=== PATIENT | female | born 1935 | race Caucasian/White ===

== ENCOUNTER 2017-04-28 19:04 | Emergency (ER) | payer OTHER, MEDICAID ==
[~2017-04-28] VITALS: Ht 154.9 cm; Wt 84.4 kg
[2017-04-28 19:04] VITALS: BP 134/76
[2017-05-19] MEDS ORDERED: CELEXA10 MG PO (08:50)
[2017-05-19] MEDS ORDERED: NEURONTIN100 MG PO (08:51)
== END 2017-04-28 19:58 | disposition home or self-care (01) ==
LOC: ED 19:04
DX: Z48.01 Encounter for change or removal of surgical wound dressing (principal); Z90.711 Acquired absence of uterus with remaining cervical stump; Z98.890 Other specified postprocedural states; Z79.899 Other long term (current) drug therapy; Z79.82 Long term (current) use of aspirin

== ENCOUNTER → 2017-04-28 | Day surgery (SDC) | payer OTHER, MEDICAID ==
[~2017-04-28] VITALS: Ht 154.9 cm; Wt 81.6 kg
[~2017-04-28] MED LIST: AMBIEN5 MG PO; ASPIRIN81 M1 PO; ASPIRIN81 M2 PO; ATENOLOL; ATENOLOL25 MG PO; ATENOLOL50 MG PO; CALCIUM WITH D1 CTB PO; CALCIUM1 CAP PO; CEFDINIR300 MG PO; CENTRUM SILVER1 TA1 PO; CIPRO500 MG PO; COLACE20 MG/5 ML PO; FERROUS SULFAT325 M1 PO; FERROUS SULFAT325 MG PO; FLEXERIL10 MG PO; FLEXERIL5 MG PO; HYDROCODONE BIT1 T11 PO; ISOSORBIDE30 MG PO; KETOPROFEN75 MG PO; LISINOPRIL20 MG PO; MACROBID100 M1 PO; MASON NATURAL2000 IU PO; MOM30 M1 PO; NEURONTIN100 MG PO; NEURONTIN300 MG PO; NORCO 5-325 TA1 EACH PO; OMEPRAZOLE D/R20 MG PO; ORUDIS75 MG PO; OXYCODONE HCL10 M1 PO; PERCOCET 325 MG1 TA5 PO; PREDNICOT20 MG PO; SYMBICORT1 AE1 INH; SYNTHROID,LEV112 MCG PO; SYNTHROID0.125 MG PO; THYROID; ULTRAM50 MG PO; VICODIN 5/500 505 MG PO; VITAMIN B-650 M1 PO; VITAMIN B6100 MG PO; ZANTAC150 MG PO; ZESTRIL,PRINIVIL5 MG PO; ZOCOR; ZOCOR40 MG PO; [UNRECOGNIZED DRUG - REMARK]
--- NOTE | ~2017-04-28 | O ---
[place], [place] OPERATIVE NOTE NAME: ADAMS LANDAVERDE UNIT #: [id number] ROOM: DOCTOR: LINDA MONTELONGOSUMANTH BIRTHDATE: [birth year] DOS: 04/28/2017 PREOPERATIVE DIAGNOSIS. Multiple facial lesions. POSTOPERATIVE DIAGNOSIS: Multiple facial lesions. PROCEDURE: Excisional biopsy of 3 facial lesions, 2 of the lesions from the right face, 1 lesion, left mid face. SURGEON: Dr. Schaefer. ANESTHESIA: General. INDICATIONS: The patient is an 82-year-old female who is being taken to the operating room for excisional biopsy of 3 distinct facial lesions. First lesion is located on the left mid face, second lesion right lateral chain, third lesion right neck. DESCRIPTION OF PROCEDURE: Following induction of general anesthesia, the patient was positioned supine on the OR table and draped in the standard fashion for facial skin surgery. The chin and right neck were prepped along with the left mid face. The face was then draped in a standard fashion for skin biopsy. The left mid face was addressed first. An elliptical excision of a 1 cm lesion was performed. Skin and underlying subcutaneous tissue was removed. Minor bleeding was controlled with cautery and the wound was closed in a layered fashion using 3-0 Vicryl and 5-0 monofilament suture. The second lesion was located on the right neck and was exophytic. An elliptical excision of this lesion, surrounding skin and underlying subcutaneous tissue was performed. The excised tissue was submitted to pathology. Minor bleeding controlled with cautery. Wound was closed in a layered fashion with 3-0 Vicryl and 5-0 monofilament suture. Third area was located on the right lateral chain. There was a 2 cm ulcerative skin lesion, which was removed using an elliptical excision of the lesion and surrounding normal tissue. The excision included skin and underlying subcutaneous tissue. Minor bleeding was controlled with cautery. The wound was closed in a layered fashion with 3-0 Vicryl and 5-0 monofilament suture. At the end of the case, all instrument and sponge counts were correct. Steri-Strips and a sterile dressing was applied to each biopsy site. The patient was awakened and transported to PACU in satisfactory condition. [place], [place] OPERATIVE NOTE NAME: ADAMS LANDAVERDE UNIT #: [id number] ROOM: DOCTOR: SUMANTH SCHAEFER MD BIRTHDATE: [birth year] SUMANTH SCHAEFER MD CM:OPRECORD:OPERATIVE NOTE [id number] SUMANTH SCHAEFER MD 04/29/17 1603 interface
[2017-04-28 13:10] VITALS: BP 121/74
[2017-04-28 14:30] VITALS: BP 104/35
[2017-04-28 14:45] VITALS: BP 98/49
[2017-04-28 15:00] VITALS: BP 102/52
== END | disposition home or self-care (01) ==
LOC: SDC 04-23 10:15
DX: L82.1 Other seborrheic keratosis (principal); L57.0 Actinic keratosis; E78.5 Hyperlipidemia, unspecified; E03.9 Hypothyroidism, unspecified; Z90.710 Acquired absence of both cervix and uterus; Z98.49 Cataract extraction status, unspecified eye; Z82.49 Family history of ischemic heart disease and other diseases of the circulatory system; Z83.3 Family history of diabetes mellitus; Z88.8 Allergy status to other drugs, medicaments and biological substances; Z79.899 Other long term (current) drug therapy; I10 Essential (primary) hypertension; K21.9 Gastro-esophageal reflux disease without esophagitis; E78.00 Pure hypercholesterolemia, unspecified; Z86.14 Personal history of Methicillin resistant Staphylococcus aureus infection; Z87.891 Personal history of nicotine dependence

== ENCOUNTER → 2017-05-19 | Outpatient (CLI) | payer OTHER, MEDICAID ==
[~2017-05-19] MED LIST changes: +CELEXA10 MG PO
== END | disposition home or self-care (01) ==
LOC: CARD 05-18 09:22
DX: R07.9 Chest pain, unspecified (principal)

== ENCOUNTER 2017-07-11 15:51 | Inpatient (IN) | payer OTHER ==
[~2017-07-11] VITALS: Ht 12.7 cm; Wt 87.3 kg
--- NOTE | ~2017-07-11 | WRIGHTHP ---
[place], [place] PATIENT HISTORY AND PHYSICAL EXAM [id number] UNIT #: [id number] ROOM: 525 DOCTOR: NINOSKA HO MD BIRTHDATE: [birth year] DOS: 07/11/2017 HISTORY OF PRESENT ILLNESS: The patient who has been admitted to hospital yesterday with history of feeling of weakness, nausea and pain in her abdomen, which are mostly on the left side and she came to Emergency Department where on investigation was found to have urinary tract infection and needed to be admitted to the hospital. She denies having any vomiting. There is no diarrhea. No fever or chills. She is an 82-year-old hold female who has been enjoying fairly a satisfactorily health before. MEDICATIONS: She is taking following medication at present: Multivitamin, ____ one tablet daily, Zocor 40 mg daily, lisinopril 5 mg daily, levothyroxine 112 mcg daily, vitamin B6 at 50 mg daily, aspirin 81 mg daily, citalopram 10 mg daily, gabapentin 100 mg 3 times daily, calcium carbonate with vitamin D 1 capsule daily and vitamin D3 at 2000 units daily. PAST MEDICAL HISTORY: The patient has history of hyperlipidemia, hypothyroidism, ASHD, hypertension, depression, and peripheral neuritis in the past. PAST SURGICAL HISTORY: The patient had partial hysterectomy, TEA, and cataract removal. Last time, the patient admitted to hospital was on 12/17/2013. SOCIAL HISTORY: The patient does not drink, does not smoke. FAMILY HISTORY: Diabetes mellitus and coronary heart disease. PHYSICAL EXAMINATION: GENERAL: The patient is conscious, alert and oriented. VITAL SIGNS: Temperature 98.5, pulse is 78, respirations 16, temperature 110/60, oxygen 99. HEENT: Unremarkable. No glandular enlargement. NECK: Trachea is center. Neck veins are not distended. Carotid pulses are normal. HEART: Regular, no murmur or thrill. LUNGS: Clear. No creps or rhonchi. ABDOMEN: Some tenderness in the suprapubic region and left side of the abdomen, but there is no rebound tenderness, no mass palpable. No neurological deficit observed. LABORATORY DATA: Her comprehensive metabolic profile shows BUN 29, creatinine is 1.16, GFR 45, indicating some chronic renal failure, may be some dehydration. I would encourage the patient to drink more fluid. Her glucose was 124, it was post-prandial, calcium 8.3. Troponin levels are normal. Rest of the chem profile was normal. Her white count is 16,000, hemoglobin is 13 grams, hematocrit is 40.7. Rest of the values are fairly normal. Urine examination showed 3+ leukocytes and 3+ bacteria. DIAGNOSES: Acute urinary tract infection with arteriosclerotic heart disease, hypertension, hyperlipidemia, hypothyroidism, depression and osteoporosis with [place], [place] PATIENT HISTORY AND PHYSICAL EXAM [id number] UNIT #: [id number] ROOM: [facility] DOCTOR: NINOSKA HO MD BIRTHDATE: [birth year] chronic renal failure. PLAN OF TREATMENT: The patient will be admitted to hospital. She will receive IV fluid. Encourage her to drink more liquids. She will be started on her home medication and we will give ____ 1 gram daily, ciprofloxacin IV daily and start her home medications. NINOSKA HO MD CM:HISPHYS:PATIENT HISTORY AND PHYSICAL EXAMINATION 1204 [id number] NINOSKA HO MD 07/12/17 1259 interface
--- NOTE | ~2017-07-11 | DS ---
[place], [place] DISCHARGE SUMMARY NAME: ADAMS LANDAVERDE [facility] #: [id number] UNIT #: [id number] ROOM: 525 DOCTOR: NINOSKA HO MD BIRTHDATE: [birth year] DOS: 07/13/2017 FINAL DIAGNOSES: Acute urinary tract infection with dizziness, ASHD, hypertension, hyperlipidemia, hypothyroidism, depression, osteoporosis and obesity with chronic renal failure on acute renal failure. HOSPITAL COURSE: The patient is feeling asymptomatic today and she is not in any distress. She feels very cold and she wants to go home. Her urine culture and sensitivity showed E. coli infection, which is sensitive to most of antibiotics including Macrobid. The patient will be discharged on Macrobid 100 mg twice daily for 1 week and she will be followed up in the office next week. CBC today is showing no acute problems and her comprehensive metabolic showed much improvement in her BUN and creatinine and they are normal now. Her acute renal failure that has improved, which was possibly due to dehydration. The patient will be advised to drink a lot of liquids. She is advised to continue to take her home medications and will be followed up in the office next week. NINOSKA HO MD CM:NIRMAL [id number] NINOSKA HO MD 07/13/17 1527 interface
--- NOTE | ~2017-07-11 | EKG ---
[place], [place] ELECTROCARDIOGRAM REPORT NAME: ADAMS LANDAVERDE UNIT #: [id number] ROOM: 525 DOCTOR: JUNIE BARAJAS MD BIRTHDATE: [birth year] DOS: 07/11/2017 TIME: 17:05:29 RATE AND RHYTHM: Normal sinus rhythm at 81 beats per minute. MO interval 186 milliseconds, QRS duration 84 milliseconds, corrected QT interval 455 milliseconds, QRS axis is -6. IMPRESSION: 1. Normal sinus rhythm with possible atrial ectopic activity. 2. Atrial premature complexes seen and otherwise is normal EKG. JUNIE BARAJAS MD CM:EKGRPT:ELECTROCARDIOGRAM REPORT [id number] JUNIE BARAJAS MD
[2017-07-11 15:57] VITALS: BP 106/56
[2017-07-11 17:02] LABS: BASO % 0.3 % (0.0-1.0); EOS # 0.1 10*3/uL (0.0-0.4); EOS % 0.6 % (1.0-4.0); HEMATOCRIT 40.7 % (37.0-47.0); LYMPH # 1.3 10*3/uL (1.3-4.4); MEAN CELL VOLUME 96.4 fl (81.0-99.0); MEAN CORPUSCULAR HGB 30.8 pg (27.0-31.0); MEAN CORPUSCULAR HGB CONC 31.9 g/dl (33.0-37.0); MEAN PLATELET VOLUME 9.5 fl (9.6-12.3); MONO # 1.4 10*3/uL (0.1-1.0); MONO % 8.5 % (3.0-9.0); NEUT # 13.1 10*3/uL (2.3-7.9); PLATELET COUNT AUTOMATED 260 10*3/uL (130-400); RED BLOOD COUNT 4.22 10*6/uL (4.10-5.10); RED CELL DISTRI WIDTH 14.6 % (0-14.5)
[2017-07-11 17:10] LABS: ACT PARTIAL THROMBO TIME 21.7 SECONDS (20.8-31.5)
[2017-07-11 17:17] LABS: ALBUMIN 3.2 gm/dl (3.1-4.5); ALKALINE PHOSPHATASE 66 U/L (45-117); BUN 29 mg/dl (7-24); CHLORIDE 101 mmol/L (98-107); CREATININE 1.16 mg/dL (0.55-1.02); POTASSIUM 4.1 mmol/L (3.5-5.1); SGOT/AST 14 IU/L (3-35); SGPT/ALT 20 U/L (12-78); SODIUM 140 mmol/L (136-145); TOTAL PROTEIN 7.6 gm/dL (6.4-8.2)
[2017-07-11 17:20] LABS: TROPONIN I < 0.015 ng/ml (<0.045)
--- NOTE | 2017-07-11 17:33 | NUR ---
PT STRAIGHT CATHED FOR URINE SPECIMEN, TOLERATED WITHOUT COMPLAINT. 60CCS OF DARK YELLOW URINE OBTAINED.
[2017-07-11 17:48] LABS: BILIRUBIN NEGATIVE (NEGATIVE); BLOOD TRACE-INTACT (NEGATIVE); CLARITY SL CLOUDY (CLEAR); COLOR YELLOW (YELLOW); GLUCOSE NEGATIVE (NEGATIVE); KETONE NEGATIVE (NEGATIVE); LEUKO ESTERASE 3+ (NEGATIVE); NITRITE POSITIVE (NEGATIVE); PH 5.5 (5.0-9.0); SPECIFIC GRAVITY 1.015 (1.005-1.030)
[2017-07-11 17:55] LABS: BACTERIA 3+; WBC TNTC wbc/hpf (0-5)
[2017-07-11 19:12] VITALS: BP 128/56
[2017-07-11 20:00] VITALS: BP 131/67
--- NOTE | 2017-07-11 20:00 | NUR ---
A 82, admitted to 5E, under the services of BERNARD Mann DO with a diagnosis of UTI/DIZZYNESS. Chief complaint is DIZZY WHILE LAYING. Patient arrived via wheel chair from ER. Monitor applied. Initial assessment completed. Vital signs taken and recorded. BERNARD MANN DO notified of admission to the unit. Orders received. See assessment for past medical history, medications and allergies. Patient and/or family oriented to unit. [facility] visitation policy reviewed. Clothing/patient valuable form completed. CARYL MORA
--- NOTE | 2017-07-11 20:43 | NUR ---
UNABLE TO VERIFY HOME MEDS, PATIENT'S SON WILL BRING IN LIST IN THE MORNING.
--- NOTE | 2017-07-11 22:18 | NUR ---
PATIENT'S SON BROUGHT IN MED LIST. WAS ABLE TO UPDATE MED REQ.
[2017-07-12] VITALS: BP 156/70
[2017-07-12 08:00] VITALS: BP 118/80
--- NOTE | 2017-07-12 08:26 | NUR ---
PATIENT RESTING QUIETLY IN BED. NO DISTRESS NOTED. RESPIRATIONS EASY, REGULAR. PT DENIES ANY DIZZINESS CURRENTLY. WILL CONTINUE TO MONITOR. ENCOURAGED TO USE CALL LIGHT FOR ASSISTANCE. PT VOICED UNDERSTANDING. WILL CONTINUE TO MONITOR.
[2017-07-12 12:00] VITALS: BP 120/82
--- NOTE | 2017-07-12 12:26 | NUR ---
IN TO SEE PATIENT.
--- NOTE | 2017-07-12 14:24 | NUR ---
PT AMBULATORY IN HALLWAY VIA WALKER. SON WALKING WITH HER. NO DIZZINESS PER PT.
[2017-07-12 16:00] VITALS: BP 122/62
[2017-07-12 20:00] VITALS: BP 139/76
[2017-07-13] VITALS: BP 118/63
[2017-07-13 06:47] LABS: BASO % 0.4 % (0.0-1.0); EOS # 0.3 10*3/uL (0.0-0.4); EOS % 2.5 % (1.0-4.0); HEMATOCRIT 37.6 % (37.0-47.0); HEMOGLOBIN 12.3 g/dl (12.0-16.0); LYMPH # 1.6 10*3/uL (1.3-4.4); LYMPH % 15.4 % (27.0-41.0); MEAN CELL VOLUME 96.7 fl (81.0-99.0); MEAN CORPUSCULAR HGB 31.6 pg (27.0-31.0); MEAN CORPUSCULAR HGB CONC 32.7 g/dl (33.0-37.0); MEAN PLATELET VOLUME 9.7 fl (9.6-12.3); MONO # 0.9 10*3/uL (0.1-1.0); MONO % 9.2 % (3.0-9.0); NEUT # 7.3 10*3/uL (2.3-7.9); NEUT % 71.8 % (47.0-73.0); PLATELET COUNT AUTOMATED 229 10*3/uL (130-400); RED BLOOD COUNT 3.89 10*6/uL (4.10-5.10); RED CELL DISTRI WIDTH 14.4 % (0-14.5); WHITE BLOOD COUNT 10.2 10*3/uL (4.8-10.8)
[2017-07-13 07:43] LABS: ALBUMIN 2.6 gm/dl (3.1-4.5); ALKALINE PHOSPHATASE 51 U/L (45-117); CHLORIDE 107 mmol/L (98-107); CREATININE 0.97 mg/dL (0.55-1.02); SGOT/AST 14 IU/L (3-35); SGPT/ALT 15 U/L (12-78); SODIUM 140 mmol/L (136-145); TOTAL PROTEIN 6.5 gm/dL (6.4-8.2)
[2017-07-13 07:57] LABS: BUN 18 mg/dl (7-24)
[2017-07-13 08:00] VITALS: BP 139/71
--- NOTE | 2017-07-13 09:25 | NUR ---
Tape Recording Machine Operator in to talk to patient. Patient states lives at HOME IN AN APARTMENT with HER SON. There are 0 steps in the home. Physician: DR BARAJAS [facility] services: NONE Patient's level of ADLs: MINIMAL ASSIST Patient has working utilities: YES DME: WALKER Follow-up physician's appointment after d/c: PREFERS TO MAKE HER OWN APPT Does patient want to access PORTAL?: Discharge plan HOME. WILLIAM HERRERA
--- NOTE | 2017-07-13 12:10 | NUR ---
DR HO IN TO SEE PT. PT BEING DISCHARGED. PT HAS UNSIGNED ADMISSION ORDER. I CALLED DR HO'S OFFICE AND THEY STATED THEY WOULD NOTIFY HIM.
--- NOTE | 2017-07-13 12:20 | NUR ---
Discharge instructions reviewed with patient/family. Patient receptive and verbalizes understanding. Follow-up care arranged. Written instructions given to patient/family. BENEDICT MEJIA
== END 2017-07-13 12:20 | disposition home or self-care (01) | DRG 690 ==
LOC: ED 15:51 → EDHOLD 19:11 → 5E 19:11
PROVIDERS: Physician Assistant; ADMIT Internal Medicine
DX: N30.01 Acute cystitis with hematuria (principal); N17.9 Acute kidney failure, unspecified; E44.0 Moderate protein-calorie malnutrition; E86.0 Dehydration; E78.5 Hyperlipidemia, unspecified; E03.9 Hypothyroidism, unspecified; F32.9 Major depressive disorder, single episode, unspecified; E66.9 Obesity, unspecified; I12.9 Hypertensive chronic kidney disease with stage 1 through stage 4 chronic kidney disease, or unspecified chronic kidney disease; N18.9 Chronic kidney disease, unspecified; M81.0 Age-related osteoporosis without current pathological fracture; I25.10 Atherosclerotic heart disease of native coronary artery without angina pectoris; B96.20 Unspecified Escherichia coli [E. coli] as the cause of diseases classified elsewhere; Z91.048 Other nonmedicinal substance allergy status; Z91.041 Radiographic dye allergy status; Z79.82 Long term (current) use of aspirin; Z79.899 Other long term (current) drug therapy; Z68.36 Body mass index [BMI] 36.0-36.9, adult; Z90.710 Acquired absence of both cervix and uterus; Z98.49 Cataract extraction status, unspecified eye; Z83.3 Family history of diabetes mellitus; Z82.49 Family history of ischemic heart disease and other diseases of the circulatory system

== ENCOUNTER 2017-07-30 23:14 | Inpatient (IN) | payer OTHER ==
[~2017-07-30] VITALS: Ht 154.9 cm; Wt 87.7 kg
--- NOTE | ~2017-07-30 | PR ---
[place], [place] PROGRESS NOTE NAME: ADAMS LANDAVERDE UNIT #: [id number] ROOM: 520 DOCTOR: NINOSKA HO MD BIRTHDATE: [birth year] DOS: 08/02/2017 SUBJECTIVE: The patient has been admitted to hospital with dizziness and patient is feeling gradually better and she is able to ambulate without feeling dizziness and she denies any chest pain. No difficulty breathing, no nausea, no vomiting and is satisfactorily improving and she is feeling much better. OBJECTIVE: VITAL SIGNS: Her blood pressure 129/63, pulse 85, respirations 18, temperature 97.8. CHEST: Clear. No creps or rhonchi. HEART: Regular. ABDOMEN: Soft. No edema of leg. She is progressing quite satisfactorily. NINOSKA HO MD CM:PNTRANS [phone] NINOSKA HO MD 08/03/17 0448 interface
--- NOTE | ~2017-07-30 | PR ---
[place], [place] PROGRESS NOTE [id number] UNIT #: [id number] ROOM: 520 DOCTOR: NINOSKA HO MD BIRTHDATE: [birth year] DOS: SUBJECTIVE: Shirin Giles who has been admitted to the hospital with dizziness and the patient is feeling somewhat better today. There is no chest pain, no difficulty in breathing. Her chest x-ray is normal. Ultrasound of the abdomen shows hypoechoic lesions measuring 0.5 to 0.5 cm ____ in the pancreas, which is nonspecific fatty liver. Ultrasound of the lower extremity was normal, no evidence of deep vein thrombosis. Carotid duplex scan shows less than 50% stenosis in the bilateral internal carotid artery. The patient had some shortness of breath. She is feeling better from that. She also had some acute renal failure due to dehydration. The patient is feeling better from that point of view, history of hypertension, hyperlipidemia, hypothyroidism and morbid obesity. The patient slept comfortably. She is eating well. There is no nausea, no vomiting. Her blood pressure 104/48, pulse 70, respirations 20, temperature 98.5. The patient is eating and drinking well. Her troponin level is normal. Ammonia level is 16 and echocardiogram shows left ventricle normal size. There is normal left ventricular segmental wall motion, mild concentric left ventricular hypertrophy, left ventricular systolic function is normal 65%, left ventricle diastolic function is normal, right ventricle function is normal. I will put her on Hep-Lock, encourage her to ambulate and see how she is doing. NINOSKA HO MD CM:PNTRANS [id number] NINOSKA HO MD 08/02/17 0236 interface
[2017-07-30 23:16] VITALS: BP 126/96
[2017-07-30 23:40] VITALS: BP 148/65
[2017-07-30 23:41] VITALS: BP 143/69
[2017-07-30 23:42] VITALS: BP 160/93
[2017-07-30 23:43] LABS: BASO # 0.1 10*3/uL (0.0-0.1); BASO % 0.7 % (0.0-1.0); EOS # 0.3 10*3/uL (0.0-0.4); EOS % 3.5 % (1.0-4.0); LYMPH % 22.9 % (27.0-41.0); MEAN CELL VOLUME 96.7 fl (81.0-99.0); MEAN CORPUSCULAR HGB 30.7 pg (27.0-31.0); MEAN CORPUSCULAR HGB CONC 31.7 g/dl (33.0-37.0); MEAN PLATELET VOLUME 9.7 fl (9.6-12.3); MONO # 0.8 10*3/uL (0.1-1.0); MONO % 9.6 % (3.0-9.0); NEUT # 5.4 10*3/uL (2.3-7.9); NEUT % 62.9 % (47.0-73.0); PLATELET COUNT AUTOMATED 276 10*3/uL (130-400); RED BLOOD COUNT 4.24 10*6/uL (4.10-5.10); RED CELL DISTRI WIDTH 15.2 % (0-14.5); WHITE BLOOD COUNT 8.5 10*3/uL (4.8-10.8)
[2017-07-31] LABS: ALBUMIN 3.4 gm/dl (3.1-4.5); ALKALINE PHOSPHATASE 53 U/L (45-117); BUN 24 mg/dl (7-24); CHLORIDE 108 mmol/L (98-107); CREATININE 1.31 mg/dL (0.55-1.02); POTASSIUM 4.1 mmol/L (3.5-5.1); SGOT/AST 22 IU/L (3-35); SGPT/ALT 20 U/L (12-78); SODIUM 142 mmol/L (136-145); TOTAL PROTEIN 7.4 gm/dL (6.4-8.2)
[2017-07-31 00:02] LABS: TROPONIN I < 0.015 ng/ml (<0.045)
[2017-07-31 00:11] LABS: BILIRUBIN NEGATIVE (NEGATIVE); BLOOD NEGATIVE (NEGATIVE); CLARITY SL CLOUDY (CLEAR); COLOR YELLOW (YELLOW); GLUCOSE NEGATIVE (NEGATIVE); KETONE NEGATIVE (NEGATIVE); LEUKO ESTERASE NEGATIVE (NEGATIVE); NITRITE NEGATIVE (NEGATIVE); PH 6.5 (5.0-9.0)
--- NOTE | 2017-07-31 01:30 | NUR ---
A 82, admitted to , under the services of JUNIE Jeffery MD with a diagnosis of SOB, DIZZINESS, EKG ABNORMALITIES. Chief complaint is DIZZINESS. Patient arrived via ambulatory from ER. Monitor applied. Initial assessment completed. Vital signs taken and recorded. JUNIE JEFFERY MD notified of admission to the unit. Orders received. See assessment for past medical history, medications and allergies. Patient and/or family oriented to unit. [facility] visitation policy reviewed. Clothing/patient valuable form completed. MINOO WRIGHT
[2017-07-31 01:56] VITALS: BP 155/67
--- NOTE | 2017-07-31 02:00 | NUR ---
PATIENT UNSURE OF MED DOSES. WILL HAVE TO HAVE [facility] CALLED IN AM. ALSO MENTIONED TO PATIENT THAT SHE COULD HAVE SON BRING HER MED BOTTLES IN AM. SHE STATED SHE GETS HER MEDS FROM [facility] AND ALSO GETS THEM FROM [facility].
--- NOTE | 2017-07-31 02:20 | NUR ---
DR. TINAJERO CALLED FOR ORDERS.
[2017-07-31 07:12] LABS: BASO # 0.1 10*3/uL (0.0-0.1); BASO % 0.7 % (0.0-1.0); EOS # 0.2 10*3/uL (0.0-0.4); EOS % 2.8 % (1.0-4.0); HEMATOCRIT 37.8 % (37.0-47.0); HEMOGLOBIN 11.9 g/dl (12.0-16.0); LYMPH # 1.8 10*3/uL (1.3-4.4); LYMPH % 20.4 % (27.0-41.0); MEAN CELL VOLUME 99.2 fl (81.0-99.0); MEAN CORPUSCULAR HGB 31.2 pg (27.0-31.0); MEAN CORPUSCULAR HGB CONC 31.5 g/dl (33.0-37.0); MONO # 0.8 10*3/uL (0.1-1.0); MONO % 9.5 % (3.0-9.0); NEUT # 5.7 10*3/uL (2.3-7.9); NEUT % 66.2 % (47.0-73.0); PLATELET COUNT AUTOMATED 262 10*3/uL (130-400); RED BLOOD COUNT 3.81 10*6/uL (4.10-5.10); RED CELL DISTRI WIDTH 15.2 % (0-14.5); WHITE BLOOD COUNT 8.6 10*3/uL (4.8-10.8)
[2017-07-31 07:31] LABS: CREATININE 1.09 mg/dL (0.55-1.02); FREE T4 1.05 ng/dl (0.76-1.46); MAGNESIUM 2.3 mg/dL (1.5-2.1); PHOSPHOROUS 3.7 mg/dL (2.5-4.9); POTASSIUM 4.1 mmol/L (3.5-5.1)
[2017-07-31 07:36] LABS: VITAMIN D, 25-HYDROXY 37.3 ng/mL (30-100)
[2017-07-31 07:36] LABS: ACT PARTIAL THROMBO TIME 20.7 SECONDS (20.8-31.5); INTERNATIONAL NORM RATIO 0.9 (2.0-3.5)
[2017-07-31 07:37] LABS: THYROID STIM HORMONE (HS) 2.04 uIU/ml (0.358-4.75)
[2017-07-31 08:00] VITALS: BP 97/74
--- NOTE | 2017-07-31 08:30 | NUR ---
Maitre D' in to talk to patient. Patient states lives at HOME IN AN APARTMENT with HER SON. There are 0 steps in the home. Physician: DR BARAJAS [facility]: NONE Patient's level of ADLs: MINIMAL ASSIST Patient has working utilities: YES DME: WALKER Follow-up physician's appointment after d/c: PREFERS TO MAKE HER OWN APPT Does patient want to access PORTAL?: Discharge plan HOME. WILLIAM HERRERA
--- NOTE | 2017-07-31 10:55 | NUR ---
MEDICATED FOR HEADACHE WITH TWO TYLENOL PO. STATES IT IS 5/10 ON THE PAIN SCALE.
[2017-07-31 11:55] VITALS: BP 137/63
--- NOTE | 2017-07-31 13:55 | NUR ---
NOTIFIED DR. GRAHAM GROUP OF CONSULT.
--- NOTE | 2017-07-31 13:58 | NUR ---
[facility]ICAL [facility]ERAP[facility]. Thank you for this referral. Celestina Gleason,PT
--- NOTE | 2017-07-31 15:20 | NUR ---
Occupational Therapy referral received but patient was out of the room for testing. OTR will recheck at a later date. Thank you for this referral. Celestina Arriaga OTR/L
[2017-07-31 16:00] VITALS: BP 116/64
[2017-07-31 20:00] VITALS: BP 121/62
[2017-08-01] VITALS: BP 104/48
[2017-08-01 07:12] LABS: BASO # 0.1 10*3/uL (0.0-0.1); BASO % 0.7 % (0.0-1.0); EOS # 0.3 10*3/uL (0.0-0.4); EOS % 3.6 % (1.0-4.0); HEMATOCRIT 36.1 % (37.0-47.0); HEMOGLOBIN 11.2 g/dl (12.0-16.0); LYMPH # 1.8 10*3/uL (1.3-4.4); LYMPH % 24.5 % (27.0-41.0); MEAN CELL VOLUME 100.8 fl (81.0-99.0); MEAN CORPUSCULAR HGB 31.3 pg (27.0-31.0); MEAN PLATELET VOLUME 9.8 fl (9.6-12.3); MONO # 0.7 10*3/uL (0.1-1.0); NEUT # 4.5 10*3/uL (2.3-7.9); NEUT % 60.8 % (47.0-73.0); PLATELET COUNT AUTOMATED 236 10*3/uL (130-400); RED BLOOD COUNT 3.58 10*6/uL (4.10-5.10); RED CELL DISTRI WIDTH 15.3 % (0-14.5); WHITE BLOOD COUNT 7.4 10*3/uL (4.8-10.8)
[2017-08-01 07:35] LABS: CHLORIDE 112 mmol/L (98-107); POTASSIUM 4.2 mmol/L (3.5-5.1); SODIUM 144 mmol/L (136-145)
[2017-08-01 07:43] LABS: ALBUMIN 2.8 gm/dl (3.1-4.5); ALKALINE PHOSPHATASE 44 U/L (45-117); BUN 18 mg/dl (7-24); SGOT/AST 15 IU/L (3-35); SGPT/ALT 16 U/L (12-78); TOTAL PROTEIN 6.1 gm/dL (6.4-8.2)
[2017-08-01 08:00] VITALS: BP 157/79
[2017-08-01 12:00] VITALS: BP 111/48
[2017-08-01 16:00] VITALS: BP 109/55
[2017-08-01 20:00] VITALS: BP 107/82
--- NOTE | 2017-08-01 20:04 | NUR ---
1949 UP TO BR WITH WALKER. TOLERATED WELL. NO C/O'S VOICED. HEP LOCK INTACT. NO DISTRSS NOTED.
--- NOTE | 2017-08-01 22:00 | NUR ---
RESTING IN BED WITHOUT C/O'S. CALL LIGHT IN REACH. WALKER AT BEDSIDE. CONDITION GUARDED.
--- NOTE | 2017-08-01 22:43 | NUR ---
RESTORIL PO GIVEN PER REQUEST FOR SLEEP. WILL MONITOR.
--- NOTE | 2017-08-01 23:41 | NUR ---
RESTORIL EFFECTIVE, PT SLEEPING EASILY AROUSED.
[2017-08-02] VITALS: BP 129/63
[2017-08-02 08:00] VITALS: BP 153/89
--- NOTE | 2017-08-02 08:00 | NUR ---
PATIENT LYING IN BED THIS AM, RESTING, WALKER AT BEDSIDE. OMAR. 1+ PEDAL EDEMA NOTED. VOICES NO COMPLAINTS. MONITOR D/C'D TODAY, NOW IS MED/SURG PATIENT.
[2017-08-02 12:00] VITALS: BP 120/66
[2017-08-02 16:00] VITALS: BP 112/61
[2017-08-02 19:40] VITALS: BP 134/75
--- NOTE | 2017-08-02 19:40 | NUR ---
PT AWAKE IN BED AT THIS TIME. PT C/O SOB W/EXERTION. O2 VIA NC AT 2LPM APPLIED D/T SATS 89-92% ON RA. PT C/O OCCASSIONAL DIZZINESS W/CHANGE OF PLANE. ORHTO'S PERFORMED AT THIS TIME AND ARE POSITIVE BUT PT DENIED DIZZINESS. PT REFUSING SELINA HOSE AT THIS TIME. CALL LIGHT AND WALKER IN REACH.
--- NOTE | 2017-08-02 22:11 | NUR ---
PT MEDICATED WITH PRN RESTORIL PER REQUEST FOR INSOMNIA.
--- NOTE | 2017-08-02 23:00 | NUR ---
PT RESTING QUIETLY IN BED. RESTORIL EFFECTIVE.
[2017-08-03] VITALS: BP 138/72
--- NOTE | 2017-08-03 06:23 | NUR ---
24 HR chart check completed.
[2017-08-03 08:00] VITALS: BP 173/82
--- NOTE | 2017-08-03 09:48 | NUR ---
PATIENT SITTING IN CHAIR AT BEDSIDE, VOICES NO COMPLAINTS. BREATHING IS EASY, +1 PITTING EDEMA TO LOWER EXTREMITIES. PATIENT GETTING WASHED AT BEDSIDE.
--- NOTE | 2017-08-03 10:06 | NUR ---
PATIENT REQUESTED TYLENOL FOR A HEADACHE. STATES PAIN IN A 05/02. TYLENOL GIVEN.
[2017-08-03 12:00] VITALS: BP 151/75
[2017-08-03] MEDS ORDERED: MECLIZINE HCL25 M2 PO (13:28)
--- NOTE | 2017-08-03 14:10 | NUR ---
PATIENT GIVEN MEDICATION LIST, F/U APPT AND CARE ORDERS. ALL ORDERS WERE EXPLAINED T0 PATIENT AND FAMILY. PATIENT TAKEN VIA W/C AND PA TO SON IV LOBBY.
== END 2017-08-03 14:10 | disposition home or self-care (01) | DRG 149 ==
LOC: ED 23:14 → 5E 07-31 00:44 → EDHOLD 07-31 00:44 → 5E 07-31 01:00
PROVIDERS: Internal Medicine; Student in an Organized Health Care Education/Training Program; ADMIT Internal Medicine
DX: H81.10 Benign paroxysmal vertigo, unspecified ear (principal); N17.0 Acute kidney failure with tubular necrosis; E66.01 Morbid (severe) obesity due to excess calories; E87.8 Other disorders of electrolyte and fluid balance, not elsewhere classified; R73.9 Hyperglycemia, unspecified; I10 Essential (primary) hypertension; E78.5 Hyperlipidemia, unspecified; E03.9 Hypothyroidism, unspecified; I95.1 Orthostatic hypotension; Z90.710 Acquired absence of both cervix and uterus; Z98.49 Cataract extraction status, unspecified eye; Z83.3 Family history of diabetes mellitus; Z68.36 Body mass index [BMI] 36.0-36.9, adult; Z91.041 Radiographic dye allergy status; Z91.048 Other nonmedicinal substance allergy status; Z79.82 Long term (current) use of aspirin; Z79.899 Other long term (current) drug therapy

== ENCOUNTER → 2017-08-24 | Outpatient (CLI) | payer OTHER ==
[~2017-08-24] MED LIST changes: +MECLIZINE HCL25 M2 PO
== END | disposition home or self-care (01) ==
LOC: CT 09:46
DX: K57.30 Diverticulosis of large intestine without perforation or abscess without bleeding (principal); K86.9 Disease of pancreas, unspecified; M12.88 Other specific arthropathies, not elsewhere classified, other specified site; M43.8X6 Other specified deforming dorsopathies, lumbar region; Z90.710 Acquired absence of both cervix and uterus

== ENCOUNTER 2017-10-18 15:31 | Emergency (ER) | payer OTHER ==
[~2017-10-18] VITALS: Ht 154.9 cm; Wt 88.5 kg
[2017-10-18 15:39] VITALS: BP 126/59
== END 2017-10-18 21:12 | disposition home or self-care (01) ==
LOC: ED 15:31
DX: M19.012 Primary osteoarthritis, left shoulder (principal); I10 Essential (primary) hypertension; E78.00 Pure hypercholesterolemia, unspecified; E66.01 Morbid (severe) obesity due to excess calories; E03.9 Hypothyroidism, unspecified; Z90.710 Acquired absence of both cervix and uterus; Z79.82 Long term (current) use of aspirin

== ENCOUNTER 2017-11-09 12:27 | Inpatient (IN) | payer OTHER ==
[~2017-11-09] VITALS: Ht 154.9 cm; Wt 87.1 kg
--- NOTE | ~2017-11-09 | PR ---
[place], [place] PROGRESS NOTE NAME: ADAMS LANDAVERDE UNIT #: [id number] ROOM: 412 DOCTOR: SAGE WRIGHT MD BIRTHDATE: [birth year] DOS: 11/11/2017 SUBJECTIVE: The patient was seen at her bedside today, 11/11/2017 for followup of her recently documented atrial fibrillation with acute diastolic congestive heart failure. The diagnosis was made on 11/10/2017. Since then, she has been placed on beta blockers and her heart rate appears to be much better controlled. In addition, she has been placed on a direct oral anticoagulant for stroke prophylaxis. She feels well and is tolerating her medications without problems. PHYSICAL EXAMINATION: VITAL SIGNS: Her pulse is 60 and irregularly irregular. Blood pressure is 112/87. She is afebrile. NECK: Supple. She has no jugular distention. Carotids are full. LUNGS: Respirations are unlabored. Her chest is clear. HEART: Has an irregularly irregular rhythm without murmurs or gallops. ABDOMEN: Benign. EXTREMITIES: Showed no edema. A pharmacologic myocardial perfusion study from 11/10/2017 showed an ejection fraction of 70% and no evidence for ischemia. An echocardiogram done on 11/10/2017 showed normal left ventricular size with mild concentric left ventricular hypertrophy, systolic function was normal. Diastole could not be assessed. There was moderate left atrial enlargement. There was aortic sclerosis with moderate aortic stenosis, but no other valve disease seen. IMPRESSION: 1. Newly documented atrial fibrillation with rapid ventricular response. 2. Essential hypertension. 3. Hyperlipidemia. 4. Hypothyroidism. PLAN: I agree with her current medical regimen for rate control and stroke prophylaxis. I think that she can be discharged to home within the next 24 hours. I would like her to follow up with us in the office in the next 3-4 weeks. At that time, if her symptoms are still present, we will discuss with her the possibility of cardioversion. [facility] and I thank Dr. Stapleton for asking our advice regarding the patient's care. [place], [place] PROGRESS NOTE NAME: ADAMS LANDAVERDE UNIT #: [id number] ROOM: 412 DOCTOR: SAGE WRIGHT MD BIRTHDATE: [birth year] SAGE WRIGHT MD CM:PNTRANS 09 SAGE WRIGHT MD 11/11/17 2330 interface
[2017-11-09 12:45] VITALS: BP 153/89
[2017-11-09 13:22] LABS: BASO # 0.1 10*3/uL (0.0-0.1); BASO % 0.5 % (0.0-1.0); EOS # 0.2 10*3/uL (0.0-0.4); EOS % 2.1 % (1.0-4.0); HEMATOCRIT 37.2 % (37.0-47.0); HEMOGLOBIN 12.2 g/dl (12.0-16.0); LYMPH # 1.6 10*3/uL (1.3-4.4); LYMPH % 14.8 % (27.0-41.0); MEAN CELL VOLUME 95.9 fl (81.0-99.0); MEAN CORPUSCULAR HGB 31.4 pg (27.0-31.0); MEAN CORPUSCULAR HGB CONC 32.8 g/dl (33.0-37.0); MEAN PLATELET VOLUME 9.4 fl (9.6-12.3); MONO # 0.9 10*3/uL (0.1-1.0); MONO % 8.5 % (3.0-9.0); NEUT # 7.8 10*3/uL (2.3-7.9); NEUT % 73.4 % (47.0-73.0); PLATELET COUNT AUTOMATED 275 10*3/uL (130-400); RED BLOOD COUNT 3.88 10*6/uL (4.10-5.10); RED CELL DISTRI WIDTH 16.6 % (0-14.5); WHITE BLOOD COUNT 10.6 10*3/uL (4.8-10.8)
[2017-11-09 13:36] LABS: ALBUMIN 3.1 gm/dl (3.1-4.5); ALKALINE PHOSPHATASE 57 U/L (45-117); BUN 18 mg/dl (7-24); CHLORIDE 106 mmol/L (98-107); CREATININE 0.93 mg/dL (0.55-1.02); PHOSPHOROUS 2.8 mg/dL (2.5-4.9); POTASSIUM 3.3 mmol/L (3.5-5.1); SGOT/AST 15 IU/L (3-35); SGPT/ALT 22 U/L (12-78); SODIUM 143 mmol/L (136-145); TOTAL PROTEIN 7.3 gm/dL (6.4-8.2)
[2017-11-09 16:00] VITALS: BP 111/74
[2017-11-09 20:00] VITALS: BP 137/89
[2017-11-10] VITALS: BP 160/81
[2017-11-10 06:00] VITALS: BP 134/90
[2017-11-10 06:53] LABS: BASO # 0.1 10*3/uL (0.0-0.1); BASO % 0.7 % (0.0-1.0); EOS # 0.3 10*3/uL (0.0-0.4); EOS % 2.7 % (1.0-4.0); HEMOGLOBIN 11.2 g/dl (12.0-16.0); LYMPH # 1.4 10*3/uL (1.3-4.4); LYMPH % 15.7 % (27.0-41.0); MEAN CELL VOLUME 96.2 fl (81.0-99.0); MEAN CORPUSCULAR HGB 30.8 pg (27.0-31.0); MEAN PLATELET VOLUME 9.9 fl (9.6-12.3); MONO # 0.9 10*3/uL (0.1-1.0); MONO % 9.5 % (3.0-9.0); NEUT # 6.5 10*3/uL (2.3-7.9); NEUT % 70.5 % (47.0-73.0); PLATELET COUNT AUTOMATED 274 10*3/uL (130-400); RED BLOOD COUNT 3.64 10*6/uL (4.10-5.10); RED CELL DISTRI WIDTH 16.8 % (0-14.5); WHITE BLOOD COUNT 9.2 10*3/uL (4.8-10.8)
[2017-11-10 07:15] LABS: BUN 18 mg/dl (7-24); CHLORIDE 107 mmol/L (98-107); POTASSIUM 3.7 mmol/L (3.5-5.1); SODIUM 143 mmol/L (136-145)
[2017-11-10 07:28] LABS: CHOLESTEROL 203 mg/dL (<200); CREATININE 0.84 mg/dL (0.55-1.02); HDL CHOLESTEROL 63 mg/dl (40-60); LDL CHOLESTEROL 113 mg/dL (9-159); TRIGLYCERIDES 134 mg/dl (<150); VLDL CHOLESTEROL 27 mg/dL (6-40)
[2017-11-10 08:00] VITALS: BP 149/86
[2017-11-10 08:41] LABS: VITAMIN D, 25-HYDROXY 36.8 ng/mL (30-100)
[2017-11-10 12:00] VITALS: BP 115/96
[2017-11-10 16:00] VITALS: BP 127/66
[2017-11-10 20:00] VITALS: BP 127/62
[2017-11-11] VITALS: BP 128/73
[2017-11-11 06:14] LABS: BASO # 0.1 10*3/uL (0.0-0.1); BASO % 0.5 % (0.0-1.0); EOS # 0.3 10*3/uL (0.0-0.4); EOS % 3.3 % (1.0-4.0); HEMATOCRIT 37.9 % (37.0-47.0); LYMPH # 1.7 10*3/uL (1.3-4.4); LYMPH % 18.9 % (27.0-41.0); MEAN CELL VOLUME 97.4 fl (81.0-99.0); MEAN CORPUSCULAR HGB 30.8 pg (27.0-31.0); MEAN CORPUSCULAR HGB CONC 31.7 g/dl (33.0-37.0); MEAN PLATELET VOLUME 9.5 fl (9.6-12.3); MONO # 0.9 10*3/uL (0.1-1.0); MONO % 9.4 % (3.0-9.0); NEUT # 6.1 10*3/uL (2.3-7.9); NEUT % 66.8 % (47.0-73.0); PLATELET COUNT AUTOMATED 300 10*3/uL (130-400); RED BLOOD COUNT 3.89 10*6/uL (4.10-5.10); RED CELL DISTRI WIDTH 16.8 % (0-14.5); WHITE BLOOD COUNT 9.1 10*3/uL (4.8-10.8)
[2017-11-11 06:43] LABS: ALBUMIN 3.1 gm/dl (3.1-4.5); CREATININE 1.08 mg/dL (0.55-1.02); POTASSIUM 3.7 mmol/L (3.5-5.1); TOTAL PROTEIN 6.9 gm/dL (6.4-8.2)
[2017-11-11 08:00] VITALS: BP 137/81
[2017-11-11 12:00] VITALS: BP 108/55
[2017-11-11 16:00] VITALS: BP 112/87
[2017-11-11 20:00] VITALS: BP 100/60
[2017-11-12] VITALS: BP 103/61
[2017-11-12 06:38] LABS: BASO % 0.4 % (0.0-1.0); EOS # 0.3 10*3/uL (0.0-0.4); HEMATOCRIT 39.3 % (37.0-47.0); HEMOGLOBIN 12.6 g/dl (12.0-16.0); LYMPH # 2.1 10*3/uL (1.3-4.4); LYMPH % 20.3 % (27.0-41.0); MEAN CELL VOLUME 98.3 fl (81.0-99.0); MEAN CORPUSCULAR HGB 31.5 pg (27.0-31.0); MEAN CORPUSCULAR HGB CONC 32.1 g/dl (33.0-37.0); MEAN PLATELET VOLUME 9.9 fl (9.6-12.3); MONO % 9.5 % (3.0-9.0); NEUT # 6.7 10*3/uL (2.3-7.9); NEUT % 65.8 % (47.0-73.0); PLATELET COUNT AUTOMATED 317 10*3/uL (130-400); RED CELL DISTRI WIDTH 16.9 % (0-14.5); WHITE BLOOD COUNT 10.1 10*3/uL (4.8-10.8)
[2017-11-12 06:50] LABS: BUN 24 mg/dl (7-24); CHLORIDE 106 mmol/L (98-107); CREATININE 1.06 mg/dL (0.55-1.02); POTASSIUM 3.9 mmol/L (3.5-5.1); SODIUM 142 mmol/L (136-145)
[2017-11-12 08:00] VITALS: BP 108/83
[2017-11-12] MEDS ORDERED: METOPROLOL SUCC25 M2 PO (10:32)
[2017-11-12] MEDS ORDERED: XARE20MG PO (10:32)
[2017-11-12 12:00] VITALS: BP 123/74
[2017-11-12] MEDS ORDERED: LASIX40 MG PO (13:03)
[2017-11-12] MEDS ORDERED: KLOR-CON 1010 ME1 PO (13:05)
== END 2017-11-12 13:41 | disposition home or self-care (01) | DRG 308 ==
LOC: 4E 12:27
PROVIDERS: Hospitalist
DX: I48.91 Unspecified atrial fibrillation (principal); I50.33 Acute on chronic diastolic (congestive) heart failure; E66.01 Morbid (severe) obesity due to excess calories; I35.0 Nonrheumatic aortic (valve) stenosis; I11.0 Hypertensive heart disease with heart failure; E03.9 Hypothyroidism, unspecified; I48.92 Unspecified atrial flutter; M19.90 Unspecified osteoarthritis, unspecified site; E78.2 Mixed hyperlipidemia; G47.00 Insomnia, unspecified; G89.4 Chronic pain syndrome; R53.82 Chronic fatigue, unspecified; E87.6 Hypokalemia; M25.512 Pain in left shoulder; Z85.828 Personal history of other malignant neoplasm of skin; Z90.710 Acquired absence of both cervix and uterus; Z91.041 Radiographic dye allergy status; Z79.82 Long term (current) use of aspirin; Z79.899 Other long term (current) drug therapy; Z68.36 Body mass index [BMI] 36.0-36.9, adult

== ENCOUNTER → 2017-11-18 | Outpatient (CLI) | payer OTHER ==
[~2017-11-18] MED LIST changes: +KLOR-CON 1010 ME1 PO; +LASIX40 MG PO; +METOPROLOL SUCC25 M2 PO; +XARE20MG PO
== END | disposition home or self-care (01) ==
LOC: MAMMO 10:39
DX: Z12.31 Encounter for screening mammogram for malignant neoplasm of breast (principal)

== ENCOUNTER 2017-12-21 11:20 | Inpatient (IN) | payer OTHER ==
[2017-12-21] VITALS (7 sets, daily range): BP systolic 124–159; BP diastolic 63–72
[~2017-12-21] VITALS: Ht 154.9 cm; Wt 88.5 kg
[2017-12-21 12:00] LABS: BASO # 0.1 10*3/uL (0.0-0.1); BASO % 0.5 % (0.0-1.0); EOS # 0.4 10*3/uL (0.0-0.4); EOS % 3.5 % (1.0-4.0); HEMATOCRIT 37.8 % (37.0-47.0); HEMOGLOBIN 11.9 g/dl (12.0-16.0); LYMPH # 1.6 10*3/uL (1.3-4.4); LYMPH % 16.3 % (27.0-41.0); MEAN CELL VOLUME 98.4 fl (81.0-99.0); MEAN CORPUSCULAR HGB CONC 31.5 g/dl (33.0-37.0); MEAN PLATELET VOLUME 9.6 fl (9.6-12.3); MONO % 9.8 % (3.0-9.0); NEUT % 69.4 % (47.0-73.0); PLATELET COUNT AUTOMATED 299 10*3/uL (130-400); RED BLOOD COUNT 3.84 10*6/uL (4.10-5.10); RED CELL DISTRI WIDTH 14.8 % (0-14.5)
[2017-12-21 12:16] LABS: ACT PARTIAL THROMBO TIME 26.9 SECONDS (20.8-31.5)
[2017-12-21 12:17] LABS: ALBUMIN 3.5 gm/dl (3.1-4.5); ALKALINE PHOSPHATASE 42 U/L (45-117); BUN 24 mg/dl (7-24); CHLORIDE 106 mmol/L (98-107); CREATININE 0.96 mg/dL (0.55-1.02); POTASSIUM 4.1 mmol/L (3.5-5.1); SGOT/AST 16 IU/L (3-35); SGPT/ALT 18 U/L (12-78); SODIUM 141 mmol/L (136-145); TOTAL PROTEIN 7.6 gm/dL (6.4-8.2)
[2017-12-21 12:18] LABS: TROPONIN I < 0.015 ng/ml (<0.045)
[2017-12-21] MEDS ORDERED: Synthroid,Lev100 MCG PO (15:29)
[2017-12-21] MEDS ORDERED: CELEXA10 MG PO (15:29)
[2017-12-22] VITALS: BP 113/65
[2017-12-22 06:39] LABS: BUN 26 mg/dl (7-24); CHLORIDE 104 mmol/L (98-107); CREATININE 1.05 mg/dL (0.55-1.02); PHOSPHOROUS 5.4 mg/dL (2.5-4.9); POTASSIUM 3.8 mmol/L (3.5-5.1); SODIUM 142 mmol/L (136-145)
[2017-12-22 06:40] LABS: BASO # 0.1 10*3/uL (0.0-0.1); BASO % 0.5 % (0.0-1.0); EOS # 0.3 10*3/uL (0.0-0.4); EOS % 2.9 % (1.0-4.0); HEMATOCRIT 35.4 % (37.0-47.0); HEMOGLOBIN 11.5 g/dl (12.0-16.0); LYMPH # 1.4 10*3/uL (1.3-4.4); LYMPH % 13.9 % (27.0-41.0); MEAN CELL VOLUME 96.7 fl (81.0-99.0); MEAN CORPUSCULAR HGB 31.4 pg (27.0-31.0); MEAN CORPUSCULAR HGB CONC 32.5 g/dl (33.0-37.0); MEAN PLATELET VOLUME 9.8 fl (9.6-12.3); MONO # 1.2 10*3/uL (0.1-1.0); MONO % 11.8 % (3.0-9.0); NEUT # 7.3 10*3/uL (2.3-7.9); NEUT % 70.4 % (47.0-73.0); PLATELET COUNT AUTOMATED 288 10*3/uL (130-400); RED BLOOD COUNT 3.66 10*6/uL (4.10-5.10); RED CELL DISTRI WIDTH 14.8 % (0-14.5); WHITE BLOOD COUNT 10.3 10*3/uL (4.8-10.8)
[2017-12-22 08:00] VITALS: BP 126/90
[2017-12-22 09:00] VITALS: BP 124/90
[2017-12-22 12:00] VITALS: BP 114/59
[2017-12-22 16:00] VITALS: BP 105/44; BP 99/61
[2017-12-22 20:00] VITALS: BP 93/54
[2017-12-23] VITALS: BP 122/65
[2017-12-23 07:16] LABS: CREATININE 1.13 mg/dL (0.55-1.02); PHOSPHOROUS 4.5 mg/dL (2.5-4.9); POTASSIUM 3.7 mmol/L (3.5-5.1)
[2017-12-23 08:00] VITALS: BP 118/70
[2017-12-23 12:00] VITALS: BP 122/74
[2017-12-23 16:00] VITALS: BP 125/58
[2017-12-23 20:46] VITALS: BP 118/53
[2017-12-24] VITALS: BP 118/64
[2017-12-24 06:31] LABS: CREATININE 1.56 mg/dL (0.55-1.02); POTASSIUM 3.7 mmol/L (3.5-5.1)
[2017-12-24 08:42] VITALS: BP 119/63
[2017-12-24 12:33] VITALS: BP 147/116
[2017-12-24 12:45] VITALS: BP 110/50
[2017-12-24] MEDS ORDERED: CALCIUM CARBON200 MG PO (14:15)
[2017-12-24] MEDS ORDERED: PREDNISONE10 MG PO (14:16)
[2017-12-24] MEDS ORDERED: DOXYCYCLINE100 M3 PO (14:16)
== END 2017-12-24 16:20 | disposition home health service (06) | DRG 293 ==
LOC: ED 11:20 → EDHOLD 13:36 → 5E 13:36
PROVIDERS: Internal Medicine; Nurse Practitioner Family
DX: I11.0 Hypertensive heart disease with heart failure (principal); D64.9 Anemia, unspecified; I48.0 Paroxysmal atrial fibrillation; E66.01 Morbid (severe) obesity due to excess calories; I50.33 Acute on chronic diastolic (congestive) heart failure; M19.90 Unspecified osteoarthritis, unspecified site; G89.4 Chronic pain syndrome; E83.51 Hypocalcemia; E83.39 Other disorders of phosphorus metabolism; D72.810 Lymphocytopenia; D72.821 Monocytosis (symptomatic); E78.00 Pure hypercholesterolemia, unspecified; K57.90 Diverticulosis of intestine, part unspecified, without perforation or abscess without bleeding; E78.5 Hyperlipidemia, unspecified; E03.9 Hypothyroidism, unspecified; G47.00 Insomnia, unspecified; R53.82 Chronic fatigue, unspecified; Z85.828 Personal history of other malignant neoplasm of skin; Z83.3 Family history of diabetes mellitus; Z91.041 Radiographic dye allergy status; Z79.899 Other long term (current) drug therapy; Z90.710 Acquired absence of both cervix and uterus; Z98.49 Cataract extraction status, unspecified eye; Z90.89 Acquired absence of other organs; Z82.49 Family history of ischemic heart disease and other diseases of the circulatory system; Z68.36 Body mass index [BMI] 36.0-36.9, adult; Z66 Do not resuscitate; Z51.5 Encounter for palliative care

== ENCOUNTER → 2018-01-14 | Outpatient (CLI) | payer OTHER ==
[~2018-01-14] MED LIST changes: +CALCIUM CARBON200 MG PO; +DOXYCYCLINE100 M3 PO; +PREDNISONE10 MG PO; +Synthroid,Lev100 MCG PO
--- NOTE | ~2018-01-14 | PF ---
[place], [place] PULMONARY FUNCTION TEST NAME: ADAMS LANDAVERDE UNIT #: [id number] ROOM: DOCTOR: KARL MACE MD,AMANDA BIRTHDATE: [birth year] DOS: 01/15/2018 The testing was done for the patient on 01/15/2018. ORDERED BY: Asiya Marcelo DO. HISTORY: The patient recorded as 82-year-old female, height of 61 inches, weight of 95 pounds with symptoms of dyspnea with exertion, productive cough and frequent wheezing with diagnosis noted as hypoxia. SPIROMETRY: The FVC was recorded 1.61 liters as 73% predicted value, mildly decreased without any post-bronchodilator improvement. FEV1 recorded 1.25 liters at 77% predicted value, mildly decreased without significant improvement occurred postbronchodilator test as well. The ratio of FEV1/FVC patient recorded as finding suggestive of mild obstructive airway pattern. The patient's lung diffusion recorded 39%. That was severely decreased without correction of carbon monoxide hemoglobin values. FINAL IMPRESSION: Reduction of the lung diffusion was noted for the patient, severely. The patient's etiology is unclear. The spirometry for the patient was noted as nonspecific, mild reduction of FEV1/FVC. The current abnormal lung diffusion is to be correlated. The patient's clinical history for possibility of anemia, pulmonary hypertension or other interstitial lung diseases or other such conditions. AMANDA BARAJAS MD CM:PFREPORT:PULMONARY FUNCTION TEST [phone] AMANDA MACE MD
== END | disposition home or self-care (01) ==
LOC: CP 12:31
DX: R09.02 Hypoxemia (principal)

== ENCOUNTER → 2018-01-29 | Outpatient (CLI) | payer OTHER, MEDICAID | END | disposition home or self-care (01) | LOC: RAD 14:41 | DX: N60.39 Fibrosclerosis of unspecified breast (principal) ==

== ENCOUNTER 2018-02-23 17:30 | Inpatient (IN) | payer OTHER, MEDICAID ==
[~2018-02-23] VITALS: Ht 154.9 cm; Wt 90.3 kg
[2018-02-23 17:31] VITALS: BP 148/101
[2018-02-23 18:03] LABS: BASO # 0.1 10*3/uL (0.0-0.1); BASO % 0.6 % (0.0-1.0); EOS # 0.3 10*3/uL (0.0-0.4); EOS % 3.2 % (1.0-4.0); HEMATOCRIT 38.9 % (37.0-47.0); HEMOGLOBIN 12.2 g/dl (12.0-16.0); MEAN CELL VOLUME 96.8 fl (81.0-99.0); MEAN CORPUSCULAR HGB 30.3 pg (27.0-31.0); MEAN CORPUSCULAR HGB CONC 31.4 g/dl (33.0-37.0); MEAN PLATELET VOLUME 9.8 fl (9.6-12.3); MONO # 1.1 10*3/uL (0.1-1.0); MONO % 11.3 % (3.0-9.0); NEUT # 6.4 10*3/uL (2.3-7.9); NEUT % 64.5 % (47.0-73.0); PLATELET COUNT AUTOMATED 290 10*3/uL (130-400); RED BLOOD COUNT 4.02 10*6/uL (4.10-5.10); RED CELL DISTRI WIDTH 15.2 % (0-14.5); WHITE BLOOD COUNT 9.9 10*3/uL (4.8-10.8)
[2018-02-23 18:18] LABS: ALBUMIN 3.4 gm/dl (3.1-4.5); ALKALINE PHOSPHATASE 46 U/L (45-117); BUN 26 mg/dl (7-24); CHLORIDE 106 mmol/L (98-107); CREATININE 1.04 mg/dL (0.55-1.02); SGOT/AST 14 IU/L (3-35); SGPT/ALT 18 U/L (12-78); SODIUM 141 mmol/L (136-145); TOTAL PROTEIN 7.3 gm/dL (6.4-8.2)
[2018-02-23 18:19] LABS: TROPONIN I < 0.015 ng/ml (<0.045)
[2018-02-23 19:45] VITALS: BP 148/88
[2018-02-23 19:50] VITALS: BP 155/110
[2018-02-23] MEDS ORDERED: TRAMADOL HCL50 MG PO (19:58)
[2018-02-24] VITALS: BP 142/87
[2018-02-24 06:32] LABS: BASO % 0.4 % (0.0-1.0); EOS # 0.2 10*3/uL (0.0-0.4); HEMATOCRIT 37.6 % (37.0-47.0); HEMOGLOBIN 11.5 g/dl (12.0-16.0); LYMPH # 0.5 10*3/uL (1.3-4.4); LYMPH % 4.9 % (27.0-41.0); MEAN CELL VOLUME 98.2 fl (81.0-99.0); MEAN CORPUSCULAR HGB CONC 30.6 g/dl (33.0-37.0); MEAN PLATELET VOLUME 9.5 fl (9.6-12.3); MONO # 0.7 10*3/uL (0.1-1.0); MONO % 6.1 % (3.0-9.0); NEUT # 9.6 10*3/uL (2.3-7.9); NEUT % 86.1 % (47.0-73.0); PLATELET COUNT AUTOMATED 270 10*3/uL (130-400); RED BLOOD COUNT 3.83 10*6/uL (4.10-5.10); RED CELL DISTRI WIDTH 15.3 % (0-14.5); WHITE BLOOD COUNT 11.1 10*3/uL (4.8-10.8)
[2018-02-24 06:40] LABS: CHLORIDE 106 mmol/L (98-107); POTASSIUM 4.3 mmol/L (3.5-5.1); SODIUM 142 mmol/L (136-145)
[2018-02-24 06:49] LABS: ALKALINE PHOSPHATASE 41 U/L (45-117); BUN 24 mg/dl (7-24); CREATININE 1.06 mg/dL (0.55-1.02); SGOT/AST 19 IU/L (3-35); SGPT/ALT 15 U/L (12-78); TOTAL PROTEIN 6.6 gm/dL (6.4-8.2)
[2018-02-24 08:00] VITALS: BP 119/77
[2018-02-24 16:00] VITALS: BP 127/80
[2018-02-24 20:00] VITALS: BP 116/66
[2018-02-25] VITALS: BP 101/53
[2018-02-25 06:43] LABS: BASO % 0.4 % (0.0-1.0); EOS # 0.3 10*3/uL (0.0-0.4); EOS % 4.4 % (1.0-4.0); HEMATOCRIT 33.6 % (37.0-47.0); HEMOGLOBIN 10.4 g/dl (12.0-16.0); LYMPH # 1.4 10*3/uL (1.3-4.4); LYMPH % 17.7 % (27.0-41.0); MEAN CELL VOLUME 98.2 fl (81.0-99.0); MEAN CORPUSCULAR HGB 30.4 pg (27.0-31.0); MEAN PLATELET VOLUME 9.5 fl (9.6-12.3); MONO # 0.8 10*3/uL (0.1-1.0); MONO % 10.8 % (3.0-9.0); NEUT # 5.2 10*3/uL (2.3-7.9); NEUT % 66.3 % (47.0-73.0); PLATELET COUNT AUTOMATED 242 10*3/uL (130-400); RED BLOOD COUNT 3.42 10*6/uL (4.10-5.10); RED CELL DISTRI WIDTH 15.8 % (0-14.5); WHITE BLOOD COUNT 7.8 10*3/uL (4.8-10.8)
[2018-02-25 06:58] LABS: ALBUMIN 2.9 gm/dl (3.1-4.5); ALKALINE PHOSPHATASE 38 U/L (45-117); BUN 24 mg/dl (7-24); CHLORIDE 109 mmol/L (98-107); CREATININE 0.95 mg/dL (0.55-1.02); POTASSIUM 4.3 mmol/L (3.5-5.1); SGOT/AST 12 IU/L (3-35); SGPT/ALT 14 U/L (12-78); SODIUM 142 mmol/L (136-145); TOTAL PROTEIN 6.5 gm/dL (6.4-8.2)
[2018-02-25 08:00] VITALS: BP 109/72
[2018-02-25 12:00] VITALS: BP 102/84; BP 108/68
== END 2018-02-25 13:49 | disposition home or self-care (01) | DRG 871 ==
LOC: ED 17:30 → 4E 19:02 → EDHOLD 19:02 → 4E 19:33
PROVIDERS: Emergency Medicine; Internal Medicine
DX: A41.9 Sepsis, unspecified organism (principal); J18.1 Lobar pneumonia, unspecified organism; E44.0 Moderate protein-calorie malnutrition; I48.91 Unspecified atrial fibrillation; I11.0 Hypertensive heart disease with heart failure; I50.32 Chronic diastolic (congestive) heart failure; E66.01 Morbid (severe) obesity due to excess calories; D64.9 Anemia, unspecified; C44.601 Unspecified malignant neoplasm of skin of unspecified upper limb, including shoulder; D72.821 Monocytosis (symptomatic); E03.9 Hypothyroidism, unspecified; E78.5 Hyperlipidemia, unspecified; M19.90 Unspecified osteoarthritis, unspecified site; R73.9 Hyperglycemia, unspecified; G47.00 Insomnia, unspecified; G89.4 Chronic pain syndrome; R74.8 Abnormal levels of other serum enzymes; Z90.710 Acquired absence of both cervix and uterus; Z98.49 Cataract extraction status, unspecified eye; Z83.3 Family history of diabetes mellitus; Z91.041 Radiographic dye allergy status; Z79.899 Other long term (current) drug therapy; Z82.49 Family history of ischemic heart disease and other diseases of the circulatory system; Z68.37 Body mass index [BMI] 37.0-37.9, adult

== ENCOUNTER 2018-03-02 14:17 | Inpatient (IN) | payer OTHER, MEDICAID ==
[~2018-03-02] VITALS: Ht 154.9 cm; Wt 85.8 kg
--- NOTE | ~2018-03-02 | EKG ---
[place], [place] ELECTROCARDIOGRAM REPORT NAME: ADAMS LANDAVERDE UNIT #: [id number] ROOM: 408 DOCTOR: JUNIE BARAJAS MD BIRTHDATE: [birth year] DOS: 03/02/2018 TIME: 19:57:29. RATE AND RHYTHM: Rate is actually atrial fibrillation, irregularly irregular. DC interval 150, QRS duration 83 milliseconds. Corrected QT interval is 515 milliseconds, QRS axis is 6. IMPRESSION: 1. Atrial fibrillation with controlled rate. 2. Prolonged QT interval. 3. The patient does have underlying AFib and is on Xarelto. The patient was admitted for atrial fibrillation with rapid ventricular response. JUNIE BARAJAS MD CM:EKGRPT:ELECTROCARDIOGRAM REPORT 1117 1253 JUNIE BARAJAS MD
[~2018-03-02 14:17] MED LIST changes: +TRAMADOL HCL50 MG PO
[2018-03-02 14:20] VITALS: BP 144/91
[2018-03-02 14:50] VITALS: BP 144/90
[2018-03-02 14:58] LABS: BASO # 0.1 10*3/uL (0.0-0.1); BASO % 0.7 % (0.0-1.0); EOS # 0.3 10*3/uL (0.0-0.4); HEMATOCRIT 34.7 % (37.0-47.0); HEMOGLOBIN 10.9 g/dl (12.0-16.0); LYMPH # 1.6 10*3/uL (1.3-4.4); LYMPH % 15.4 % (27.0-41.0); MEAN CELL VOLUME 96.1 fl (81.0-99.0); MEAN CORPUSCULAR HGB 30.2 pg (27.0-31.0); MEAN CORPUSCULAR HGB CONC 31.4 g/dl (33.0-37.0); MEAN PLATELET VOLUME 9.2 fl (9.6-12.3); MONO # 1.1 10*3/uL (0.1-1.0); MONO % 10.2 % (3.0-9.0); NEUT # 7.4 10*3/uL (2.3-7.9); PLATELET COUNT AUTOMATED 297 10*3/uL (130-400); RED BLOOD COUNT 3.61 10*6/uL (4.10-5.10); RED CELL DISTRI WIDTH 15.8 % (0-14.5); WHITE BLOOD COUNT 10.6 10*3/uL (4.8-10.8)
[2018-03-02 15:06] LABS: ACT PARTIAL THROMBO TIME 23.9 SECONDS (20.8-31.5)
[2018-03-02 15:13] LABS: ALBUMIN 3.2 gm/dl (3.1-4.5); ALKALINE PHOSPHATASE 42 U/L (45-117); BUN 19 mg/dl (7-24); CHLORIDE 105 mmol/L (98-107); CREATININE 1.07 mg/dL (0.55-1.02); POTASSIUM 4.6 mmol/L (3.5-5.1); SGOT/AST 20 IU/L (3-35); SGPT/ALT 27 U/L (12-78); SODIUM 140 mmol/L (136-145); TOTAL PROTEIN 6.9 gm/dL (6.4-8.2)
[2018-03-02 15:14] LABS: TROPONIN I < 0.015 ng/ml (<0.045)
[2018-03-02 15:31] VITALS: BP 136/88
[2018-03-02 15:36] VITALS: BP 152/86
[2018-03-02 16:15] VITALS: BP 140/80
[2018-03-02 18:17] LABS: BILIRUBIN NEGATIVE (NEGATIVE); BLOOD NEGATIVE (NEGATIVE); CLARITY CLEAR (CLEAR); COLOR YELLOW (YELLOW); GLUCOSE NEGATIVE (NEGATIVE); KETONE NEGATIVE (NEGATIVE); LEUKO ESTERASE TRACE (NEGATIVE); NITRITE NEGATIVE (NEGATIVE); PH 5.5 (5.0-9.0); UROBILINOGEN 0.2 E.U./dl (0.2-1.0)
[2018-03-02 18:26] LABS: BACTERIA 2+; RBC 0-2 rbc/hpf (0-2)
[2018-03-02 20:00] VITALS: BP 148/86
[2018-03-03] VITALS: BP 123/63
[2018-03-03 05:33] LABS: CREATININE 1.18 mg/dL (0.55-1.02); PHOSPHOROUS 4.9 mg/dL (2.5-4.9); POTASSIUM 3.9 mmol/L (3.5-5.1); TOTAL PROTEIN 6.5 gm/dL (6.4-8.2)
[2018-03-03 06:09] LABS: BASO # 0.1 10*3/uL (0.0-0.1); BASO % 0.7 % (0.0-1.0); EOS # 0.4 10*3/uL (0.0-0.4); EOS % 3.8 % (1.0-4.0); HEMATOCRIT 33.9 % (37.0-47.0); HEMOGLOBIN 10.4 g/dl (12.0-16.0); LYMPH # 1.9 10*3/uL (1.3-4.4); LYMPH % 18.1 % (27.0-41.0); MEAN CELL VOLUME 96.6 fl (81.0-99.0); MEAN CORPUSCULAR HGB 29.6 pg (27.0-31.0); MEAN CORPUSCULAR HGB CONC 30.7 g/dl (33.0-37.0); MEAN PLATELET VOLUME 9.9 fl (9.6-12.3); MONO % 9.5 % (3.0-9.0); NEUT % 67.2 % (47.0-73.0); PLATELET COUNT AUTOMATED 278 10*3/uL (130-400); RED BLOOD COUNT 3.51 10*6/uL (4.10-5.10); RED CELL DISTRI WIDTH 15.8 % (0-14.5); WHITE BLOOD COUNT 10.4 10*3/uL (4.8-10.8)
[2018-03-03 06:38] LABS: ACT PARTIAL THROMBO TIME 33.2 SECONDS (20.8-31.5); INTERNATIONAL NORM RATIO 1.2 (2.0-3.5)
[2018-03-03 08:00] VITALS: BP 131/73
[2018-03-03 12:00] VITALS: BP 120/66
[2018-03-03 16:00] VITALS: BP 123/68
[2018-03-03 20:00] VITALS: BP 125/69
[2018-03-04] VITALS: BP 130/82
[2018-03-04 06:15] LABS: BASO # 0.1 10*3/uL (0.0-0.1); BASO % 0.7 % (0.0-1.0); EOS # 0.4 10*3/uL (0.0-0.4); EOS % 3.6 % (1.0-4.0); HEMOGLOBIN 11.4 g/dl (12.0-16.0); LYMPH # 1.6 10*3/uL (1.3-4.4); LYMPH % 15.2 % (27.0-41.0); MEAN CORPUSCULAR HGB 30.1 pg (27.0-31.0); MEAN CORPUSCULAR HGB CONC 31.7 g/dl (33.0-37.0); MEAN PLATELET VOLUME 9.8 fl (9.6-12.3); MONO # 1.2 10*3/uL (0.1-1.0); MONO % 10.8 % (3.0-9.0); NEUT # 7.5 10*3/uL (2.3-7.9); NEUT % 69.1 % (47.0-73.0); NUCLEATED RED BLOOD CELL 0.2 % (0.0-0.0); PLATELET COUNT AUTOMATED 328 10*3/uL (130-400); RED BLOOD COUNT 3.79 10*6/uL (4.10-5.10); RED CELL DISTRI WIDTH 15.5 % (0-14.5); WHITE BLOOD COUNT 10.8 10*3/uL (4.8-10.8)
[2018-03-04 06:33] LABS: ALBUMIN 3.4 gm/dl (3.1-4.5); POTASSIUM 3.7 mmol/L (3.5-5.1)
[2018-03-04 06:40] LABS: CREATININE 1.29 mg/dL (0.55-1.02); TOTAL PROTEIN 7.1 gm/dL (6.4-8.2)
[2018-03-04 08:00] VITALS: BP 112/68
[2018-03-04 12:00] VITALS: BP 100/55
[2018-03-04 16:00] VITALS: BP 106/40
[2018-03-04 20:00] VITALS: BP 122/109
[2018-03-04 21:00] VITALS: BP 122/84
[2018-03-05] VITALS: BP 104/78
[2018-03-05 06:15] LABS: BASO # 0.1 10*3/uL (0.0-0.1); BASO % 0.7 % (0.0-1.0); EOS # 0.4 10*3/uL (0.0-0.4); EOS % 3.8 % (1.0-4.0); HEMATOCRIT 37.8 % (37.0-47.0); HEMOGLOBIN 11.9 g/dl (12.0-16.0); MEAN CORPUSCULAR HGB 29.6 pg (27.0-31.0); MEAN CORPUSCULAR HGB CONC 31.5 g/dl (33.0-37.0); MEAN PLATELET VOLUME 9.4 fl (9.6-12.3); MONO # 1.1 10*3/uL (0.1-1.0); MONO % 10.2 % (3.0-9.0); NEUT # 7.2 10*3/uL (2.3-7.9); NEUT % 66.7 % (47.0-73.0); PLATELET COUNT AUTOMATED 341 10*3/uL (130-400); RED BLOOD COUNT 4.02 10*6/uL (4.10-5.10); RED CELL DISTRI WIDTH 15.5 % (0-14.5); WHITE BLOOD COUNT 10.9 10*3/uL (4.8-10.8)
[2018-03-05 06:26] LABS: ALBUMIN 3.4 gm/dl (3.1-4.5); CREATININE 1.44 mg/dL (0.55-1.02); POTASSIUM 3.9 mmol/L (3.5-5.1); TOTAL PROTEIN 7.5 gm/dL (6.4-8.2)
[2018-03-05 08:00] VITALS: BP 114/72
[2018-03-05 12:00] VITALS: BP 113/62
[2018-03-05] MEDS ORDERED: LASIX20 MG PO (13:10)
== END 2018-03-05 13:44 | disposition home or self-care (01) | DRG 291 ==
LOC: ED 14:17 → 4E 15:38 → EDHOLD 15:38 → 4E 15:50
PROVIDERS: Internal Medicine; Physician Assistant
DX: I11.0 Hypertensive heart disease with heart failure (principal); N17.0 Acute kidney failure with tubular necrosis; E44.0 Moderate protein-calorie malnutrition; D64.9 Anemia, unspecified; I48.0 Paroxysmal atrial fibrillation; J84.10 Pulmonary fibrosis, unspecified; I47.1 Supraventricular tachycardia; E66.01 Morbid (severe) obesity due to excess calories; D72.810 Lymphocytopenia; I50.33 Acute on chronic diastolic (congestive) heart failure; M12.9 Arthropathy, unspecified; E03.9 Hypothyroidism, unspecified; G89.4 Chronic pain syndrome; Z85.828 Personal history of other malignant neoplasm of skin; Z98.49 Cataract extraction status, unspecified eye; Z83.3 Family history of diabetes mellitus; Z91.041 Radiographic dye allergy status; Z79.899 Other long term (current) drug therapy; Z68.37 Body mass index [BMI] 37.0-37.9, adult; Z90.710 Acquired absence of both cervix and uterus

== ENCOUNTER → 2018-03-12 | Outpatient (CLI) | payer OTHER, MEDICAID ==
[~2018-03-12] MED LIST changes: +LASIX20 MG PO
== END | disposition home or self-care (01) ==
LOC: US 13:42
DX: R60.0 Localized edema (principal)

== ENCOUNTER → 2018-04-12 | Outpatient (CLI) | payer OTHER, MEDICAID ==
[~2018-04-12] MED LIST changes: +AEROECLIPSE II1 EACH MC; +LEVAQUIN750 M1 PO; +PREDNISONE20 M1 PO; +VENTOLIN 02.5 MG/3 M INH
[2018-04-12 14:20] LABS: CREATININE 1.11 mg/dL (0.55-1.02)
== END | disposition home or self-care (01) ==
LOC: LAB 13:22
PROVIDERS: Internal Medicine Gastroenterology
DX: R10.9 Unspecified abdominal pain (principal)

== ENCOUNTER 2018-04-14 12:24 | Emergency (ER) | payer OTHER, MEDICAID ==
[~2018-04-14] VITALS: Ht 154.9 cm; Wt 84.8 kg
[~2018-04-14 12:24] MED LIST changes: -AEROECLIPSE II1 EACH MC; -LEVAQUIN750 M1 PO; -PREDNISONE20 M1 PO; -VENTOLIN 02.5 MG/3 M INH
[2018-04-14 12:25] VITALS: BP 150/70
[2018-04-14 13:02] LABS: BILIRUBIN NEGATIVE (NEGATIVE); BLOOD NEGATIVE (NEGATIVE); CLARITY CLOUDY (CLEAR); COLOR YELLOW (YELLOW); GLUCOSE NEGATIVE (NEGATIVE); KETONE NEGATIVE (NEGATIVE); LEUKO ESTERASE TRACE (NEGATIVE); NITRITE NEGATIVE (NEGATIVE); PH 5.5 (5.0-9.0); UROBILINOGEN 0.2 E.U./dl (0.2-1.0)
[2018-04-14 13:22] LABS: BACTERIA TRACE; MUCOUS 1+
[2018-04-14 13:23] LABS: BASO % 0.5 % (0.0-1.0); EOS # 0.3 10*3/uL (0.0-0.4); EOS % 3.6 % (1.0-4.0); HEMATOCRIT 39.4 % (37.0-47.0); HEMOGLOBIN 12.1 g/dl (12.0-16.0); LYMPH # 1.2 10*3/uL (1.3-4.4); LYMPH % 15.2 % (27.0-41.0); MEAN CELL VOLUME 96.8 fl (81.0-99.0); MEAN CORPUSCULAR HGB 29.7 pg (27.0-31.0); MEAN CORPUSCULAR HGB CONC 30.7 g/dl (33.0-37.0); MEAN PLATELET VOLUME 9.8 fl (9.6-12.3); MONO # 1.1 10*3/uL (0.1-1.0); MONO % 13.5 % (3.0-9.0); NEUT # 5.2 10*3/uL (2.3-7.9); NEUT % 66.7 % (47.0-73.0); PLATELET COUNT AUTOMATED 267 10*3/uL (130-400); RED BLOOD COUNT 4.07 10*6/uL (4.10-5.10); RED CELL DISTRI WIDTH 15.7 % (0-14.5); WHITE BLOOD COUNT 7.8 10*3/uL (4.8-10.8)
[2018-04-14 13:29] VITALS: BP 133/76
[2018-04-14 13:32] LABS: ACT PARTIAL THROMBO TIME 32.7 SECONDS (20.8-31.5); INTERNATIONAL NORM RATIO 1.2 (2.0-3.5)
[2018-04-14 13:41] LABS: ALBUMIN 3.7 gm/dl (3.1-4.5); ALKALINE PHOSPHATASE 48 U/L (45-117); BUN 24 mg/dl (7-24); CHLORIDE 108 mmol/L (98-107); CREATININE 1.04 mg/dL (0.55-1.02); POTASSIUM 4.2 mmol/L (3.5-5.1); SGOT/AST 17 IU/L (3-35); SGPT/ALT 18 U/L (12-78); SODIUM 143 mmol/L (136-145); TOTAL PROTEIN 7.9 gm/dL (6.4-8.2)
[2018-04-14 13:42] LABS: TROPONIN I < 0.015 ng/ml (<0.045)
[2018-04-14 14:32] VITALS: BP 126/67
[2018-04-14] MEDS ORDERED: LEVAQUIN750 M1 PO (14:55)
[2018-04-14] MEDS ORDERED: PREDNISONE20 M1 PO (14:55)
[2018-04-14] MEDS ORDERED: VENTOLIN 02.5 MG/3 M INH (14:55)
[2018-04-14] MEDS ORDERED: AEROECLIPSE II1 EACH MC ×2 (14:55→15:23)
== END 2018-04-14 15:05 | disposition home or self-care (01) ==
LOC: ED 12:24 → EDHOLD 14:48 → ED 15:05
PROVIDERS: Emergency Medicine
DX: J18.1 Lobar pneumonia, unspecified organism (principal); I48.91 Unspecified atrial fibrillation; I11.0 Hypertensive heart disease with heart failure; I50.9 Heart failure, unspecified; R53.83 Other fatigue; G89.4 Chronic pain syndrome; M19.90 Unspecified osteoarthritis, unspecified site; E03.9 Hypothyroidism, unspecified; E66.01 Morbid (severe) obesity due to excess calories; Z90.710 Acquired absence of both cervix and uterus; Z98.890 Other specified postprocedural states; Z91.041 Radiographic dye allergy status; Z79.899 Other long term (current) drug therapy

== ENCOUNTER → 2018-04-21 | Outpatient (CLI) | payer OTHER, MEDICAID ==
[~2018-04-21] MED LIST changes: +AEROECLIPSE II1 EACH MC; +LEVAQUIN750 M1 PO; +PREDNISONE20 M1 PO; +VENTOLIN 02.5 MG/3 M INH
== END | disposition home or self-care (01) ==
LOC: CT 04-13 00:56
DX: K57.30 Diverticulosis of large intestine without perforation or abscess without bleeding (principal)

== ENCOUNTER → 2018-04-28 | Outpatient (CLI) | payer OTHER, MEDICAID | END | disposition home or self-care (01) | LOC: RAD 12:16 | DX: I11.0 Hypertensive heart disease with heart failure (principal); I50.9 Heart failure, unspecified; J18.1 Lobar pneumonia, unspecified organism ==

== ENCOUNTER 2018-05-01 00:41 | Emergency (ER) | payer OTHER, MEDICAID ==
[~2018-05-01] VITALS: Ht 154.9 cm; Wt 90.7 kg
[2018-05-01 00:41] VITALS: BP 125/64
[2018-05-01] MEDS ORDERED: PREDNISONE20 M1 PO (02:17)
== END 2018-05-01 02:21 | disposition home or self-care (01) ==
LOC: ED 00:41
DX: M54.42 Lumbago with sciatica, left side (principal); I10 Essential (primary) hypertension; Z91.041 Radiographic dye allergy status; Z88.8 Allergy status to other drugs, medicaments and biological substances; Z79.899 Other long term (current) drug therapy; Z90.710 Acquired absence of both cervix and uterus

== ENCOUNTER → 2018-06-23 | Outpatient (CLI) | payer OTHER, MEDICAID ==
[2018-06-23 09:50] LABS: CHOLESTEROL 188 mg/dL (<200); HDL CHOLESTEROL 57 mg/dl (40-60); LDL CHOLESTEROL 104 mg/dL (9-159); TRIGLYCERIDES 136 mg/dl (<150); VLDL CHOLESTEROL 27 mg/dL (6-40)
== END | disposition home or self-care (01) ==
LOC: LAB 09:01
PROVIDERS: Internal Medicine
DX: R73.9 Hyperglycemia, unspecified (principal); E78.5 Hyperlipidemia, unspecified

== ENCOUNTER → 2018-11-24 | Outpatient (CLI) | payer OTHER ==
[~2018-11-24] MED LIST changes: +CEPHALEXIN500 M1 PO; +LIDEX 0.05% CRE15 GM T; +VISTARIL25 MG PO
[2018-11-24 12:03] LABS: BASO # 0.1 10*3/uL (0.0-0.1); BASO % 0.7 % (0.0-1.0); EOS # 0.3 10*3/uL (0.0-0.4); EOS % 2.7 % (1.0-4.0); HEMATOCRIT 36.6 % (37.0-47.0); HEMOGLOBIN 11.7 g/dl (12.0-16.0); LYMPH # 1.6 10*3/uL (1.3-4.4); MEAN CELL VOLUME 98.9 fl (81.0-99.0); MEAN CORPUSCULAR HGB 31.6 pg (27.0-31.0); MEAN PLATELET VOLUME 9.5 fl (9.6-12.3); MONO % 10.8 % (3.0-9.0); NEUT # 6.2 10*3/uL (2.3-7.9); NEUT % 68.1 % (47.0-73.0); PLATELET COUNT AUTOMATED 338 10*3/uL (130-400); WHITE BLOOD COUNT 9.2 10*3/uL (4.8-10.8)
[2018-11-24 12:38] LABS: BUN 28 mg/dl (7-24); CHLORIDE 104 mmol/L (98-107); CREATININE 1.06 mg/dL (0.55-1.02); POTASSIUM 3.8 mmol/L (3.5-5.1); SODIUM 139 mmol/L (136-145)
== END | disposition home or self-care (01) ==
LOC: US 11-12 10:00
PROVIDERS: Internal Medicine Nephrology
DX: N32.81 Overactive bladder (principal); R35.0 Frequency of micturition; Z90.710 Acquired absence of both cervix and uterus

== ENCOUNTER → 2018-12-14 | Outpatient (CLI) | payer OTHER ==
[2018-12-14 15:52] LABS: PTH INTACT 27.4 pg/mL (18.5-88.0)
== END | disposition home or self-care (01) ==
LOC: LAB 12:55 → US 13:00 → CARD 14:00
PROVIDERS: Internal Medicine Nephrology
DX: I08.3 Combined rheumatic disorders of mitral, aortic and tricuspid valves (principal); N18.3 Chronic kidney disease, stage 3 (moderate); N32.89 Other specified disorders of bladder; E55.9 Vitamin D deficiency, unspecified; R60.0 Localized edema

== ENCOUNTER → 2019-03-29 | Outpatient (CLI) | payer OTHER | END | disposition home or self-care (01) | LOC: RAD 10:34 | DX: M47.896 Other spondylosis, lumbar region (principal) ==

== ENCOUNTER 2019-07-06 13:35 | Emergency (ER) | payer OTHER ==
[~2019-07-06] VITALS: Ht 157.4 cm; Wt 83.9 kg
[~2019-07-06 13:35] MED LIST changes: -CEPHALEXIN500 M1 PO; -LIDEX 0.05% CRE15 GM T; -VISTARIL25 MG PO
[2019-07-06 13:37] VITALS: BP 145/76
[2019-07-06] MEDS ORDERED: LIDEX 0.05% CRE15 GM T (15:00)
[2019-07-06] MEDS ORDERED: CEPHALEXIN500 M1 PO (15:00)
[2019-07-06] MEDS ORDERED: VISTARIL25 MG PO (15:00)
== END 2019-07-06 15:06 | disposition home or self-care (01) ==
LOC: ED 13:35
DX: S30.860A Insect bite (nonvenomous) of lower back and pelvis, initial encounter (principal); S40.862A Insect bite (nonvenomous) of left upper arm, initial encounter; S40.861A Insect bite (nonvenomous) of right upper arm, initial encounter; Z91.041 Radiographic dye allergy status; Z79.899 Other long term (current) drug therapy; W57.XXXA Bitten or stung by nonvenomous insect and other nonvenomous arthropods, initial encounter; Y93.89 Activity, other specified; Y92.89 Other specified places as the place of occurrence of the external cause; Y99.8 Other external cause status

== ENCOUNTER 2019-09-19 12:39 | Inpatient (IN) | payer OTHER ==
[~2019-09-19] VITALS: Ht 154.9 cm; Wt 84.5 kg
--- NOTE | ~2019-09-19 | PR ---
[place], [place] PROGRESS NOTE NAME: ADAMS LANDAVERDE UNIT #: [id number] ROOM: 525 DOCTOR: KARL MACE MD,AMANDA BIRTHDATE: [birth year] DOS: 09/26/2019 SUBJECTIVE: She has been noted comfortable at this time, sitting on the chair this morning. Denies symptoms of coughing, chest pain, sputum expectoration or any acute hemoptysis. She has been ambulating without any difficulty of breathing. OBJECTIVE: VITAL SIGNS: This morning, normal temperature, respiratory rate 18, heart rate 79, blood pressure recorded 129/47 at midnight, this morning blood pressure was not available. HEENT: Examination shows head was atraumatic. Eyes nonicterus. NECK: Supple. CARDIOVASCULAR: S1, S2 audible. LUNGS: Noted without any wheezing or crackles at the present time. EXTREMITIES: Remains unchanged chronic edema of the left lower extremity. LABORATORY DATA: BMP that was done on 09/26/2019, normal BUN and creatinine. CBC was noted as WBC count 14.8, hemoglobin 11.2, platelet count were normal. IMPRESSION: Resolving acute respiratory failure, at this time does not require any oxygen supplementation, ambulating well with chronic changes on the CT scan of the chest. PLAN OF TREATMENT: Discharge planning whenever done by the primary care physician. Outpatient followup will be suggested post-discharge. Further additional workup to be done as an outpatient pulmonary disease. In the meantime, continue current therapy, plan of management as ordered. AMANDA BARAJAS MD CM:PNTRANS 1022 1209 AMANDA MACE MD 09/26/19 1208 interface
--- NOTE | ~2019-09-19 | EKG ---
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
--- NOTE | ~2019-09-19 | POSTOPNOTE ---
[place], [place] POSTOPERATIVE PROGRESS NOTE NAME: ADAMS LANDAVERDE UNIT #: [id number] ROOM: 525 DOCTOR: DIOGENES DE LUNA MD BIRTHDATE: [birth year] DATE: 09/23/19 GI NOTE PREOPERATIVE DIAGNOSIS: GUAIAC POSITIVITY, ON XARELTO, ATRIAL FIBRILLATION, UNDERLYING, HISTORY OF HYPOTHYROIDISM, SYSTEM HYPERTENSION, HISTORY OF CONGESTIVE HEART FAILURE POSTOP UPPER GI PROC/FINDINGS: UPPER GI PROCEDURE/SURGERY: ESOPHAGASTRODUODENOSCOPY, GASTRIC BIOPSY UPPER GI FINDINGS: HEMORRHAGIC SUPERFICIAL GASTRITIS AND PRESENCE OF SOME BLOOD IN THE GASTRIC POUCH, STATUS POST BIOPSY. THE PATIENT HAS BEEN ON XARELTO. DIOGENES DE LUNA MD CM:POSTOPN [id number] [id number] DIOGENES DE LUNA MD 09/27/19 1242 MIKE [email or web address].ENAR
--- NOTE | ~2019-09-19 | EKG ---
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
--- NOTE | ~2019-09-19 | O ---
[place], [place] OPERATIVE NOTE NAME: ADAMS LANDAVERDE UNIT #: [id number] ROOM: 525 DOCTOR: ANNAMARIE MONTELONGO,DIOGENES BIRTHDATE: [birth year] DOS: 09/23/2019 INDICATIONS: The patient has presented with chief complaint of guaiac positivity, on Xarelto, atrial fibrillation, underlying, history of hypothyroidism, systemic hypertension, history of congestive heart failure. PROCEDURE: Today's procedure part of investigation is panendoscopy plus biopsy. PREMEDICATION: Propofol. SCOPE: Olympus forward-viewing gastroscope Q10 video. REPORT: After putting the patient in left lateral position and application of lubricant to the scope, the scope was introduced. Thereafter, under direct visualization, advanced through the length of esophagus without difficulty. Gastric pouch was entered and evidence of gastritis was seen. This is hemorrhagic type and superficial in nature. Antral biopsy obtained after photographic series has been obtained. Duodenal bulb, second and third part within normal limit. The patient extubated, tolerated the procedure well. IMPRESSION: Hemorrhagic superficial gastritis and presence of some blood in the gastric pouch, status post biopsy. The patient has been on Xarelto. PLAN AND DISCUSSION: We are going to keep her on IV Protonix while inpatient. We are going to keep her on Carafate 2 grams slurry q.i.d. while inpatient and as an outpatient continuation of Protonix management, 40 mg day. At the present time, we are going to give her a bland regular diet. Thank you very much indeed for your kind referral. DIOGENES DE LUNA MD CM:OPRECORD:OPERATIVE NOTE [id number] DIOGENES DE LUAN MD 09/24/19 0436 interface
--- NOTE | ~2019-09-19 | PR ---
[place], [place] PROGRESS NOTE NAME: ADAMS LANDAVERDE UNIT #: [id number] ROOM: 525 DOCTOR: KARL MACE MD,AMANDA BIRTHDATE: [birth year] DOS: 09/25/2019 SUBJECTIVE: She has been noted comfortable at this time, resting in the bed this morning of assessment. She has not been noted any symptoms of fever or chills. Denies symptoms of hemoptysis, stating that she has been feeling much better today. There were no abdominal symptom reported from that as of yesterday. OBJECTIVE: VITAL SIGNS: Normal temperature, respiratory rate 18, heart rate 82, blood pressure 140/54. Pulse oxygen saturation at rest on room air 93% saturation. HEENT: Examination shows head was atraumatic, chronic obesity. NECK: Supple. CARDIOVASCULAR: S1, S2 audible. LUNGS: No wheeze or crackles. ABDOMEN: Soft. EXTREMITIES: Unchanged edema of the left lower extremity. LABORATORY DATA: The patient's CBC: WBC count 12.8. Hemoglobin 11.9. The BMP this morning as BUN 29, creatinine was normal. IMPRESSION: Stable respiratory status favorable improvement continued from the pulmonary standpoint gradually and progressively did not require any oxygen supplementation. Resolving leukocytosis. PLAN OF TREATMENT: Discontinuation of corticosteroids. Discharge planning per primary care physician upon stability. AMANDA BARAJAS MD CM:PNTRANS [id number] AMANDA MACE MD 09/25/19 1501 interface
--- NOTE | ~2019-09-19 | CON ---
[place], [place] REPORT OF CONSULTATION NAME: ADAMS LANDAVERDE UNIT #: [id number] ROOM: 525 DOCTOR: DIOGENES DE LUNA MD BIRTHDATE: [birth year] DOS: 09/23/2019 GASTROENDOSCOPIC CONSULTATION REPORT HISTORY OF PRESENT ILLNESS: The patient is an 84-year-old who has presented with chief complaint of epigastric abdominal pain, undergoing investigation of the colon, guaiac positivity and I have been asked for assessment of the patient in this regard. The patient has come in on 09/19/2019 and was seen by me 2 days ago. Her CBC differential initially, H and H of 11 and 35 and subsequent H and H is essentially remaining the same; however, the patient is guaiac positive. The patient's BNP was 1300. Her urinalysis was greater than 100,000 bacteria, which has been addressed. CBC differential has repeatedly been reassessed. Hemoglobin A1c is 7. PAST MEDICAL HISTORY: Associated with hypothyroidism, obesity, degenerative joint disease, atrial fibrillation, protein-calorie malnutrition. PAST SURGICAL HISTORY: Cataract, , hysterectomy. SOCIAL HISTORY: Nonsmoker, nonalcohol consumer. FAMILY HISTORY: Noncontributory. ALLERGIES: IVP DYE AND TAPE. MEDICATIONS: List has been reviewed including Xarelto and other meds that were reviewed. REVIEW OF SYSTEMS: HEENT: Denies double vision or blurred vision. RESPIRATORY: Admits some shortness of breath. CARDIOVASCULAR: Denies some chest pain. DIGESTIVE. Epigastric pain. PHYSICAL EXAMINATION: VITAL SIGNS: Stable, well nourished. HEENT: Head: Normocephalic, nontraumatic. Mouth and buccal mucosa edentulous. NECK: Supple, no thyromegaly, no cervical lymphadenopathy. CHEST: Symmetric anatomy and decreased air entry bilaterally. HEART: Normal sinus rhythm, no gallop, no murmur. ABDOMEN: Obese, large, soft. No hepato-organomegaly. Bowel sounds present. No pulsatile mass. EXTREMITIES: No cyanosis, no pedal edema. NEUROLOGIC: Alert, oriented to time, place, person. IMPRESSION: Guaiac positive for borderline anemia. Other adjunctive diagnoses as outlined above. PLAN AND DISCUSSION: I am going to organize a panendoscopic assessment. [place], [place] REPORT OF CONSULTATION NAME: ADAMS LANDAVERDE UNIT #: [id number] ROOM: 525 DOCTOR: ANNAMARIE MONTELONGO,DIOGENES BIRTHDATE: [birth year] Thank you very much indeed for your kind referral. DIOGENES DE LUNA MD CM:CONSTR:REPORT OF CONSULTATION 1749 09/24/19 0433 interface
--- NOTE | ~2019-09-19 | CON ---
[place], [place] REPORT OF CONSULTATION NAME: ADAMS LANDAVERDE UNIT #: [id number] ROOM: 525 DOCTOR: AMANDA RUFFIN MD BIRTHDATE: [birth year] DOS: 09/22/2019 PULMONARY CONSULTATION, EVALUATION AND MANAGEMENT REASON FOR CONSULTATION: Assess the patient for abnormal CT scan chest findings. HISTORY OF PRESENT ILLNESS: This is an 84-year-old white female patient admitted to the hospital under the care of Dr. Estevan Stapleton. The patient presented to the office with symptoms of shortness of breath ongoing for a few days. She has been assessed, was ambulated in the office a couple of minutes noted with oxygen desaturation. The patient admitted to the hospital for further care. During the hospitalization, she has multiple testing performed for the patient for further assessment. The patient had a CT scan chest that was completed on 09/20/2019 was reported with finding of ground glass opacities in the lungs. The patient does have symptoms of nonproductive cough. Denies symptoms of chest pain. Denies symptoms of hemoptysis. The patient denies any symptoms of wheezing. REVIEW OF SYSTEMS: CONSTITUTIONAL: Fatigue and tiredness for the patient reported without any symptoms of fever or chills. EYES: Denies any burning, redness or tenderness. EARS, NOSE, THROAT SYMPTOMS: No sore throat, hoarseness, otalgia, postnasal drainage or epistaxis. CARDIOVASCULAR: Denies angina pain. The patient noted with edema to the left lower extremity, which is a chronic finding, intermittent edema, etiology was not understood from the patient. GASTROINTESTINAL: Denies dysphagia, nausea, vomiting, diarrhea, abdominal pain, hematemesis, melena or hematochezia. SKIN: Denies abnormal lesions or rashes. CENTRAL NERVOUS SYSTEM: No dizziness, headache, diplopia or syncopal episodes. Remaining systems were reviewed. They were noted all negative. PAST MEDICAL HISTORY: 1. Reported as history of degenerative arthritis. 2. Permanent atrial fibrillation. 3. Chronic pain syndrome. 4. Congestive heart failure, preserved ejection fraction. 5. Essential hypertension. 6. Hypothyroidism. 7. Obesity. PAST SURGICAL HISTORY: 1. Cataract extraction with lens implantation. 2. Hysterectomy. 3. . SOCIAL HISTORY: The patient denies any tobacco, alcohol or any illicit drug use [place], [place] REPORT OF CONSULTATION NAME: ADAMS LANDAVERDE UNIT #: [id number] ROOM: 525 DOCTOR: KARL MACE MD,AMANDA BIRTHDATE: [birth year] in the past. FAMILY HISTORY: The patient's father at the age 80-year-old with complication of diabetes. Mother at the age of 8282 years old, cause of unknown. HOME MEDICATIONS: Listed as citalopram, diazepam, Lasix, levothyroxine, lisinopril, multivitamin, oxybutynin chloride, pravastatin, Pyridoxine, Xarelto, tramadol, calcium carbonate and vitamin D. CURRENT MEDICATIONS: Administered were noted with albuterol, Lipitor, Cardizem CD, oxybutynin chloride, citalopram, Xarelto, Pyridoxine, multivitamin, levothyroxine, Mucinex, Solu-Medrol 40 mg IV b.i.d., Rocephin, Levaquin, and some other meds. DRUG ALLERGIES: NOTED ALLERGY TO THE IVP DYE. PHYSICAL EXAMINATION: GENERAL: An 84-year-old female who has been currently noted comfortable, resting on the bed without any distress this morning of assessment. Height 5 feet 1 inch, weight 189 pounds, BMI 35.7. VITAL SIGNS: Normal temperature, respiratory rate 18-20, heart rate of 121-98 with atrial fibrillation, blood pressure 110/70 to 133/60. Pulse oxygen saturation recorded at rest on room air 95% saturation and noted normal pulse ox saturation on room air as well on admission. HEENT: Moderate obesity. Head was atraumatic. Eyes nonicterus. Decreased posterior pharyngeal space, high tongue base and crowding of soft tissue structures. CARDIOVASCULAR: S1, S2 is audible. LUNGS: Decreased breath sounds. Occasional crackles, no wheezing. ABDOMEN: Soft, nontender. Bowel sounds present. EXTREMITIES: The patient without any new changes. Mild edema, left lower extremity. MUSCULOSKELETAL: Without deformity. CENTRAL NERVOUS SYSTEM: Noted essentially generally intact. LABORATORY DATA: The PT/PTT on admission, INR 1.5, PTT 41 on 09/19/2019. CBC 09/19/2019, WBC count normal, hemoglobin normal, platelet count was normal. CMP that was done on 09/19/2019, BUN 32, creatinine 1.39. ProBNP was 447. BMP that was done on 09/20/2019, BUN 39, creatinine 1.57. CBC that was done this morning 20.2, hemoglobin 11.7, hematocrit normal, platelet count normal. The BMP this morning, BUN 42, creatinine 1.29. Chest x-ray that was done, 1 view in the Emergency Room on 09/19/2019 was noted with increased interstitial marking, possibility of small pleural effusions. CT scan of the chest that was completed on 09/20/2019 without contrast were reviewed for this patient shows mediastinal fat deposition secondary to chronic obesity. Assessment of the hilar area suboptimal because of lack of intravenous contrast. There was no lymphadenopathy noted in the mediastinal area. There were no pleural effusions for the patient was seen on the CT scan as well. Hazy scattered ground glass opacity noted in the lungs for the patient as well. [place], [place] REPORT OF CONSULTATION NAME: ADAMS LANDAVERDE UNIT #: [id number] ROOM: [facility] DOCTOR: AMANDA RUFFIN MD BIRTHDATE: [birth year] IMPRESSION: 1. The patient who has been currently admitted to the hospital with symptoms of shortness of breath, current ground opacity, nonspecific finding, etiology unclear. Differential could be considered a drug-induced lung injury, bronchiolitis, interstitial edema and other findings. Current findings were not suggestive of congestive heart failure. There was no history of past tobacco use. The patient has a V/Q scan done on this patient excluding pulmonary embolism. She was noted history of congestive heart failure with preserved ejection fraction as well. The echocardiogram completed yesterday for the patient assessed by Dr. Mello, reported with severe LVH was also noted for the patient with grade 2 diastolic dysfunction. Right ventricular function was reported as normal and there were no valvular abnormalities. 2. Leukocytosis, most likely induced by the corticosteroids. There was no finding noted consistent with acute pneumonia. At this time, discontinue the corticosteroids and the antibiotic, monitor respiratory symptoms closely. Follow up current finding for the patient, if the finding remained not severe, consider outpatient workup for the patient for current interstitial lung disease as necessary. Bronchodilators to be continued p.r.n. respiratory symptoms. Other therapy, plan of management. Additional treatment changes to be done. Follow the recommendation for the management of congestive heart failure per Cardiology Services. Thanks for allowing me to participate in the care of this patient. AMANDA BARAJAS MD CM:CONSTR:REPORT OF CONSULTATION 1252 09/23/19 0215 interface
--- NOTE | ~2019-09-19 | PR ---
[place], [place] PROGRESS NOTE NAME: ADAMS LANDAVERDE UNIT #: [id number] ROOM: 525 DOCTOR: KARL MACE MD,AMANDA BIRTHDATE: [birth year] DOS: 09/23/2019 PULMONARY PROGRESS NOTE SUBJECTIVE: The patient was seen on 09/23/2019. She has been ambulating. Reduction in shortness of breath was stated. Denies symptoms of fever, chills, coughing or any sputum expectoration. Denies symptoms of acute hemoptysis. OBJECTIVE: GENERAL: For the patient which recorded shows a temperature noted as normal. She was comfortably sitting on the side of bed. VITAL SIGNS: Recorded normal temperature this morning, respiratory rate 18, heart rate 96, and blood pressure 112/58. HEENT: Examination shows head was atraumatic. Eyes nonicterus. NECK: Supple. CARDIOVASCULAR: S1, S2 audible. LUNGS: Noted without any wheeze or crackles. ABDOMEN: Soft, nontender. Bowel sounds present. EXTREMITIES: At this time, no acute finding except chronic edema of the left lower extremity, remains unchanged. LABORATORY DATA: ProBNP this morning was noted 1315. TSH was normal. CBC this morning, WBC count 16.2 and hemoglobin 11.7. BMP this morning, BUN 47 and creatinine 1.26. IMPRESSION: Leukocytosis. The patient noted, which were partially decreased. PLAN OF MANAGEMENT: Hold off the corticosteroids at the present time. Monitor respiratory symptom for patient's leukocytosis. Continue other workup as in progress as well. Supportive care therapy, plan of management. Intravenous steroids, if symptoms worsen. AMANDA BARAJAS MD CM:PNTRANS 1239 [id number] AMANDA AMCE MD 09/24/19 0045 interface
--- NOTE | ~2019-09-19 | PR ---
[place], [place] PROGRESS NOTE NAME: ADAMS LANDAVERDE UNIT #: [id number] ROOM: 525 DOCTOR: KARL MACE MD,AMANDA BIRTHDATE: [birth year] DOS: 09/24/2019 SUBJECTIVE: The patient noted comfortable at this time, resting on the bed this morning of assessment. She has not been reporting any acute respiratory complaints. Denies symptoms of chest pain. She was complaining of some sleepiness this morning, stating that she has been given some medication for the abdominal pain or discomfort, resulting in sleepiness. OBJECTIVE: VITAL SIGNS: For the patient normal temperature, respiratory rate 22, heart rate 66, and blood pressure 132/56. The pulse oxygen saturation on room air at rest noted as 92% saturation. HEENT: Examination shows head was atraumatic. Eyes nonicterus. NECK: Supple. CARDIOVASCULAR: S1, S2 audible. LUNGS: Decreased breath sounds. There were no wheeze or crackles. ABDOMEN: Soft with chronic obesity. Bowel sounds present. EXTREMITIES: ____. The patient was noted chronic edema of the left lower extremity that remains unchanged. IMPRESSION: Stable respiratory status from pulmonary standpoint without any distress, saturating well at rest on room air. Abdominal problem and others, which has been currently treated and noted stable. PLAN OF CARE: No changes in the plan of management at this time will be necessary. From the pulmonary standpoint, discharge planning could be started whenever necessary. AMANDA BARAJAS MD CM:TALON [phone] 00 AMANDA MACE MD 09/24/19 190 interface
[~2019-09-19 12:39] MED LIST changes: +CEPHALEXIN500 M1 PO; +LIDEX 0.05% CRE15 GM T; +VISTARIL25 MG PO
--- NOTE | 2019-09-19 13:00 | NUR ---
A 84, admitted to 5E, under the services of JUNIE Jeffery MD with a diagnosis of DYSPNEA. Chief complaint is SOB. Patient arrived via wheel chair from [place]. Monitor applied. Initial assessment completed. Vital signs taken and recorded. JUNIE JEFFERY MD notified of admission to the unit. Orders received. See assessment for past medical history, medications and allergies. Patient and/or family oriented to unit. [facility] 5E visitation policy reviewed. Clothing/patient valuable form completed. SKIN INTACT WITH NO WOUNDS. PT DECLINES FLU VACCINATION AT THIS TIME BENEDICT MEJIA
--- NOTE | 2019-09-19 13:10 | NUR ---
Occupational therapy orders received and chart reviewed. Patient refusing therapy at this time because she was eating her lunch. Will follow up with patient for completion of OT evaluation and POC. Thank you. Celia Kingsley, OTR/L
[2019-09-19] MEDS ORDERED: OXYBUTYNIN CHLOR5 M1 PO (13:21)
[2019-09-19] MEDS ORDERED: DILTIAZEM HCL120 M2 PO (13:22)
[2019-09-19 13:29] VITALS: BP 96/62
[2019-09-19] MEDS ORDERED: PRAVASTATIN SOD40 MG PO (13:33)
[2019-09-19 14:15] LABS: BASO # 0.1 10*3/uL (0.0-0.1); BASO % 0.6 % (0.0-1.0); EOS # 0.3 10*3/uL (0.0-0.4); EOS % 2.8 % (1.0-4.0); HEMATOCRIT 35.3 % (37.0-47.0); LYMPH % 18.8 % (27.0-41.0); MEAN CELL VOLUME 94.4 fl (81.0-99.0); MEAN CORPUSCULAR HGB 29.4 pg (27.0-31.0); MEAN CORPUSCULAR HGB CONC 31.2 g/dl (33.0-37.0); MEAN PLATELET VOLUME 9.7 fl (9.6-12.3); MONO # 1.2 10*3/uL (0.1-1.0); MONO % 11.1 % (3.0-9.0); NEUT # 7.1 10*3/uL (2.3-7.9); NEUT % 66.1 % (47.0-73.0); NUCLEATED RED BLOOD CELL 0.2 % (0.0-0.0); PLATELET COUNT AUTOMATED 353 10*3/uL (130-400); RED BLOOD COUNT 3.74 10*6/uL (4.10-5.10); RED CELL DISTRI WIDTH 17.5 % (0-14.5); WHITE BLOOD COUNT 10.7 10*3/uL (4.8-10.8)
[2019-09-19 14:26] LABS: ACT PARTIAL THROMBO TIME 41.8 SECONDS (20.0-32.1); INTERNATIONAL NORM RATIO 1.5 (2.0-3.5)
[2019-09-19 14:31] LABS: ALBUMIN 3.2 gm/dl (3.1-4.5); ALKALINE PHOSPHATASE 57 U/L (45-117); BUN 32 mg/dl (7-24); CHLORIDE 106 mmol/L (98-107); CREATININE 1.39 mg/dL (0.55-1.02); POTASSIUM 3.8 mmol/L (3.5-5.1); SGOT/AST 12 IU/L (3-35); SGPT/ALT 16 U/L (12-78); SODIUM 141 mmol/L (136-145); TOTAL PROTEIN 7.4 gm/dL (6.4-8.2)
[2019-09-19 14:36] LABS: TROPONIN I < 0.015 ng/ml (<0.045)
--- NOTE | 2019-09-19 15:10 | NUR ---
PHYSICAL THERAPY Pt eating lunch. Therapist watched patient walk from bed to/from bathroom with assist of 1 without an AD. Will attempt at another time. thank you Bri Peter, PT, DPT
[2019-09-19 16:00] VITALS: BP 132/60
--- NOTE | 2019-09-19 19:40 | NUR ---
24 HOUR CHART CHECK COMPLETED
[2019-09-19 20:00] VITALS: BP 110/66
--- NOTE | 2019-09-19 20:10 | NUR ---
PATIENT ASSESSMENT COMPLETED AT THIS TIME WITHOUT INCIDENT, FAMILY AT BEDSIDE. PATIENT DENIES ANY NEEDS AT THIS TIME. PATIENT PROVIDED A URINE SAMPLE WHICH WAS COLLECTED AND SENT TO LAB. CALL LIGHT WITHIN REACH. WILL CONTINUE TO RIGOBERTO.
[2019-09-19 20:12] LABS: BILIRUBIN NEGATIVE (NEGATIVE); BLOOD TRACE-INTACT (NEGATIVE); CLARITY CLOUDY (CLEAR); COLOR YELLOW (YELLOW); GLUCOSE NEGATIVE (NEGATIVE); KETONE NEGATIVE (NEGATIVE); LEUKO ESTERASE 2+ (NEGATIVE); NITRITE POSITIVE (NEGATIVE); PH 5.5 (5.0-9.0); SPECIFIC GRAVITY >= 1.030 (1.005-1.030); UROBILINOGEN 0.2 E.U./dl (0.2-1.0)
[2019-09-19 20:20] LABS: BACTERIA 2+; WBC TNTC wbc/hpf (0-5)
--- NOTE | 2019-09-19 23:15 | NUR ---
PATIENT REQUESTED PAIN MEDICATION, NORCO GIVEN AT THIS TIME FOR PAIN 05/02
--- NOTE | 2019-09-19 23:45 | NUR ---
PATIENT STATED THAT PAIN WAS MUCH BETTER AND RATED IT AT A 3/10 AT THIS TIME
[2019-09-20] VITALS: BP 108/50
--- NOTE | 2019-09-20 00:15 | NUR ---
PATIENT IN RECLINER AT THIS TIME, WATCHING TV, DENIES ANY PAIN,SHORTNESS OF BREATH OR NEEDS, CALL LIGHT WITHIN REACH, CURRENTLY ON NC 2LPM. WILL CONTINUE TO MONITOR
[2019-09-20 06:20] LABS: BASO % 0.1 % (0.0-1.0); HEMATOCRIT 33.8 % (37.0-47.0); HEMOGLOBIN 10.4 g/dl (12.0-16.0); LYMPH # 0.7 10*3/uL (1.3-4.4); LYMPH % 6.8 % (27.0-41.0); MEAN CELL VOLUME 93.4 fl (81.0-99.0); MEAN CORPUSCULAR HGB 28.7 pg (27.0-31.0); MEAN CORPUSCULAR HGB CONC 30.8 g/dl (33.0-37.0); MEAN PLATELET VOLUME 9.7 fl (9.6-12.3); MONO # 0.3 10*3/uL (0.1-1.0); MONO % 2.6 % (3.0-9.0); NEUT # 9.2 10*3/uL (2.3-7.9); NEUT % 89.5 % (47.0-73.0); PLATELET COUNT AUTOMATED 343 10*3/uL (130-400); RED BLOOD COUNT 3.62 10*6/uL (4.10-5.10); RED CELL DISTRI WIDTH 17.3 % (0-14.5); WHITE BLOOD COUNT 10.3 10*3/uL (4.8-10.8)
[2019-09-20 06:46] LABS: CREATININE 1.57 mg/dL (0.55-1.02); PHOSPHOROUS 4.2 mg/dL (2.5-4.9); POTASSIUM 4.4 mmol/L (3.5-5.1)
[2019-09-20 06:52] LABS: ACT PARTIAL THROMBO TIME 33.9 SECONDS (20.0-32.1); INTERNATIONAL NORM RATIO 1.2 (2.0-3.5)
[2019-09-20 08:00] VITALS: BP 110/50
--- NOTE | 2019-09-20 08:00 | NUR ---
Patient resting quietly with no c/o discomfort. Respirations easy and regular. Vital signs stable. No overt distress. ANGÉLICA KENDALL
--- NOTE | 2019-09-20 08:52 | NUR ---
MEDICATED WITH PO NORCO ORDERED PER PT REQUEST FOR C/O R HIP AND BILAT LEG PAIN.
[2019-09-20 09:07] LABS: VITAMIN D, 25-HYDROXY 53.1 ng/mL (30-100)
--- NOTE | 2019-09-20 10:30 | NUR ---
Hand Tapper in to talk to patient. Patient states lives at home alone with her 5 children checking in on her and her 1 son living next door. There are 0 steps in the home. Physician: Dr. Corey Stapleton [facility]: [facility] Home health services: [facility] Patient's level of ADLs: MINIMAL ASSIST Patient has working utilities: yes DME: walker, nebulizer Follow-up physician's appointment after d/c: she prefers to make her own follow up appt after discharge Does patient want to access PORTAL?: no Discharge plan discussed with patient and 2 sons and a daughter who are at the bedside. She lives at home alone with her family checking in on her and her 1 son living right next door. She is independent in her ADLs and ambulates with a walker while inside the house. When ambulating outside the house she holds onto the person with her. Discussed home health care services and she states she currently has [facility]. Her meals are delivered. When medically stable she will be discharged to home with the resumption of her [facility]. Her son will provide transportation on discharge. FARIDA HORTON
[2019-09-20 12:00] VITALS: BP 110/56
--- NOTE | 2019-09-20 12:00 | NUR ---
MEDICATION EFFECTIVE FOR PAIN PER PT.
[2019-09-20 16:00] VITALS: BP 107/53
--- NOTE | 2019-09-20 16:08 | NUR ---
PT REQUESTED AND RECEIVED PO NORCO PER PRN ORDER FOR C/O LOWER LEG PAIN/DISCOMFORT. CHRONIC PER PT. WILL MONITOR EFFECTIVENESS. CALL LIGHT WITHIN REACH.
--- NOTE | 2019-09-20 17:30 | NUR ---
JAMES EFFECTIVE PER PT.
[2019-09-20 20:00] VITALS: BP 120/57
[2019-09-21] VITALS: BP 98/49
[2019-09-21 06:52] LABS: HEMATOCRIT 33.3 % (37.0-47.0); HEMOGLOBIN 10.5 g/dl (12.0-16.0); MEAN CELL VOLUME 93.8 fl (81.0-99.0); MEAN CORPUSCULAR HGB 29.6 pg (27.0-31.0); MEAN CORPUSCULAR HGB CONC 31.5 g/dl (33.0-37.0); PLATELET COUNT AUTOMATED 368 10*3/uL (130-400); RED BLOOD COUNT 3.55 10*6/uL (4.10-5.10); RED CELL DISTRI WIDTH 17.6 % (0-14.5); WHITE BLOOD COUNT 21.9 10*3/uL (4.8-10.8)
[2019-09-21 06:56] LABS: CREATININE 1.5 mg/dL (0.55-1.02); PHOSPHOROUS 3.5 mg/dL (2.5-4.9); POTASSIUM 4.9 mmol/L (3.5-5.1)
[2019-09-21 07:25] LABS: PLATELET SUFFICIENCY NORMAL (NORMAL); TOTAL CELLS COUNTED 100 #CELLS
[2019-09-21 08:00] VITALS: BP 103/57
--- NOTE | 2019-09-21 08:50 | NUR ---
PHYSICAL THERAPY Physical therapy screen completed. Pt pleasantly sitting at bedside chair with multiple family members in room. Pt reports she has been going to/from the bathroom independently using her FWW. Her son lives nearby and has good family support if needed. Pt son reports his mother has some sciatic nerve and shoulder problems. Therapist suggested following up with outpatient therapy after she has been discharged. Thank you Bri Peter, PT, DPT
--- NOTE | 2019-09-21 08:50 | NUR ---
Occupational therapy orders received and chart reviewed. Patient was in her room seated in the chair upon arrival with four family members present in the room. Patient stated she has been up moving in the room, completing independent ADLs, functional mobility, and transfers using the wheeled walker. Patient stated she does not need OT services at this time. OT orders to be discharged. Thank you. Celia Kingsley, OTR/L
--- NOTE | 2019-09-21 10:12 | NUR ---
PT MEDICATED WITH PO NORCO PER PRN ORDER FOR C/O BILATERAL LEG PAIN. CHRONIC PER PT. RATES PAIN 05/02. WILL MONITOR EFFECTIVENESS. FAMILY AT BEDSIDE.
--- NOTE | 2019-09-21 11:15 | NUR ---
JAMES RELIEVING PAIN PER PT.
--- NOTE | 2019-09-21 11:58 | NUR ---
NOTIFIED OF CONSULT.
[2019-09-21 12:00] VITALS: BP 107/65
[2019-09-21 16:00] VITALS: BP 137/69
[2019-09-21 20:00] VITALS: BP 133/60
--- NOTE | 2019-09-21 20:00 | NUR ---
AWAKE & ALERT SITTING UP IN CHAIR. VOICES NO C/O AT THIS TIME. CALL LIGHT WITHIN REACH.
--- NOTE | 2019-09-21 23:54 | NUR ---
MEDICATED WITH RESTORIL FOR C/O INSOMNIA.
[2019-09-22] VITALS: BP 114/72
--- NOTE | 2019-09-22 03:25 | NUR ---
AROUSES EASILY UPON ENTERING ROOM TO GIVEN IV MEDICATION. PT. VOICES NO C/O AT THIS TIME. NO DISTRESS NOTED; CALL LIGHT WITHIN REACH.
[2019-09-22 06:32] LABS: BASO % 0.1 % (0.0-1.0); HEMATOCRIT 37.4 % (37.0-47.0); HEMOGLOBIN 11.7 g/dl (12.0-16.0); LYMPH # 0.9 10*3/uL (1.3-4.4); LYMPH % 4.3 % (27.0-41.0); MEAN CELL VOLUME 92.6 fl (81.0-99.0); MEAN CORPUSCULAR HGB CONC 31.3 g/dl (33.0-37.0); MEAN PLATELET VOLUME 9.7 fl (9.6-12.3); MONO % 4.9 % (3.0-9.0); NEUT # 18.1 10*3/uL (2.3-7.9); NEUT % 89.7 % (47.0-73.0); PLATELET COUNT AUTOMATED 396 10*3/uL (130-400); RED BLOOD COUNT 4.04 10*6/uL (4.10-5.10); RED CELL DISTRI WIDTH 17.8 % (0-14.5); WHITE BLOOD COUNT 20.2 10*3/uL (4.8-10.8)
[2019-09-22 06:46] LABS: CREATININE 1.29 mg/dL (0.55-1.02); POTASSIUM 4.1 mmol/L (3.5-5.1)
[2019-09-22 08:00] VITALS: BP 110/70; BP 111/67
[2019-09-22 08:20] VITALS: BP 110/70
--- NOTE | 2019-09-22 08:30 | NUR ---
Project Analyst in to see patient. No new needs or request at this time. When medically stable she will be discharged to home with the resumption of her [facility]. Family at bedside.
--- NOTE | 2019-09-22 08:52 | NUR ---
Face to face encounter with Dr. Rivero. Per physician patient is to be evaluated for home oxygen and to be notified of results. Can be discharged from his standpoint.
--- NOTE | 2019-09-22 10:48 | NUR ---
Notified Dr. Cornelius of consult for positive occult stool. See new orders.
[2019-09-22 12:00] VITALS: BP 110/63
--- NOTE | 2019-09-22 12:08 | NUR ---
PATIENT TESTED FORMTHE USE OF HOME OXYGEN. AT REST:HEART RATE-115 RESPIRATORY RATE-18 SPO2:97% BLOOD PRESSURE:11/61 DURING THE AMBULATION PATIENT WAS TOLERATING WELL NO SIGNS OF SHORTNESS OF BREATH.HERAT RTAE:117-120 BPM, RESPIRATORY RATE :22, SPO2:93-96%, BLOOD PRESSURE:130/69. PATIENT DID WELL, AND DID NOT QUALIFY FOR HOME OXYGEN.
--- NOTE | 2019-09-22 12:31 | NUR ---
Message left with Luli at [facility] regarding consult for persistent tachycardia, on Diltiazem. Physician to follow up at bedside.
--- NOTE | 2019-09-22 13:30 | NUR ---
Discharge instructions reviewed with patient/family. Patient receptive and verbalizes understanding. Follow-up care arranged. Written instructions given to patient/family. Patient educated on wound dressing changes and follow up visit in wound care clinic. TA GARCIA
[2019-09-22 16:00] VITALS: BP 110/58
--- NOTE | 2019-09-22 19:40 | NUR ---
24 HOUR CHART CHECK COMPLETED
[2019-09-22 20:00] VITALS: BP 137/67
--- NOTE | 2019-09-22 20:00 | NUR ---
PATIENT ASSESSMENT COMPELTED WITHOUT INCIDENT, CALL LIGHT WITHIN REACH, WILL CONTINUE TO MONITOR.
[2019-09-23] VITALS (8 sets, daily range): BP systolic 97–125; BP diastolic 54–90
[2019-09-23 06:27] LABS: HEMOGLOBIN 11.5 g/dl (12.0-16.0); MEAN CELL VOLUME 93.9 fl (81.0-99.0); MEAN CORPUSCULAR HGB 29.2 pg (27.0-31.0); MEAN CORPUSCULAR HGB CONC 31.1 g/dl (33.0-37.0); MEAN PLATELET VOLUME 9.8 fl (9.6-12.3); PLATELET COUNT AUTOMATED 389 10*3/uL (130-400); RED BLOOD COUNT 3.94 10*6/uL (4.10-5.10); RED CELL DISTRI WIDTH 18.1 % (0-14.5); WHITE BLOOD COUNT 16.2 10*3/uL (4.8-10.8)
[2019-09-23 06:39] LABS: CREATININE 1.26 mg/dL (0.55-1.02); POTASSIUM 3.8 mmol/L (3.5-5.1)
[2019-09-23 06:50] LABS: THYROID STIM HORMONE (HS) 2.43 uIU/ml (0.358-4.75)
[2019-09-23 07:54] LABS: PLATELET SUFFICIENCY NORMAL (NORMAL); TOTAL CELLS COUNTED 100 #CELLS
--- NOTE | 2019-09-23 09:00 | NUR ---
Corrective Therapy Aide in to see patient. No new needs or request at this time. When medically stable she will be discharged to home with the resumption of her [facility]. Patient is for an EGD today.
[2019-09-24] VITALS: BP 118/51
[2019-09-24 06:01] LABS: HEMATOCRIT 36.5 % (37.0-47.0); HEMOGLOBIN 11.3 g/dl (12.0-16.0); MEAN CELL VOLUME 95.1 fl (81.0-99.0); MEAN CORPUSCULAR HGB 29.4 pg (27.0-31.0); MEAN PLATELET VOLUME 9.9 fl (9.6-12.3); PLATELET COUNT AUTOMATED 346 10*3/uL (130-400); RED BLOOD COUNT 3.84 10*6/uL (4.10-5.10); RED CELL DISTRI WIDTH 18.6 % (0-14.5); WHITE BLOOD COUNT 12.1 10*3/uL (4.8-10.8)
[2019-09-24 06:25] LABS: BUN 38 mg/dl (7-24); CHLORIDE 108 mmol/L (98-107); CREATININE 1.03 mg/dL (0.55-1.02); PHOSPHOROUS 2.5 mg/dL (2.5-4.9); SODIUM 143 mmol/L (136-145)
--- NOTE | 2019-09-24 07:17 | NUR ---
pt refused satx pt in no distress spo2 92% RA
[2019-09-24 07:35] LABS: PLATELET SUFFICIENCY NORMAL (NORMAL); TOTAL CELLS COUNTED 100 #CELLS
[2019-09-24 08:00] VITALS: BP 133/56
[2019-09-24 12:00] VITALS: BP 118/66
--- NOTE | 2019-09-24 12:02 | NUR ---
PT REFUSED SATX
--- NOTE | 2019-09-24 13:04 | NUR ---
PT WAS ASSESSED FOR HOME O2 SPO2 ON RA AT REST...93% PT AMBULATED ON RA FOR 6 MINUTES SPO2 89-93%
[2019-09-24 16:00] VITALS: BP 111/63
[2019-09-24 20:00] VITALS: BP 113/62
[2019-09-25] VITALS: BP 104/54
[2019-09-25 04:08] LABS: IMMUNOGLOBULIN IgE 002170 5 IU/mL (6-495)
[2019-09-25 06:13] LABS: BASO % 0.2 % (0.0-1.0); EOS # 0.6 10*3/uL (0.0-0.4); EOS % 4.9 % (1.0-4.0); HEMATOCRIT 38.4 % (37.0-47.0); HEMOGLOBIN 11.9 g/dl (12.0-16.0); LYMPH # 2.2 10*3/uL (1.3-4.4); LYMPH % 17.1 % (27.0-41.0); MEAN CELL VOLUME 93.7 fl (81.0-99.0); MEAN PLATELET VOLUME 9.8 fl (9.6-12.3); MONO # 1.3 10*3/uL (0.1-1.0); MONO % 10.4 % (3.0-9.0); NEUT # 8.4 10*3/uL (2.3-7.9); NEUT % 65.6 % (47.0-73.0); NUCLEATED RED BLOOD CELL 0.2 % (0.0-0.0); PLATELET COUNT AUTOMATED 367 10*3/uL (130-400); RED CELL DISTRI WIDTH 18.2 % (0-14.5); WHITE BLOOD COUNT 12.8 10*3/uL (4.8-10.8)
[2019-09-25 06:33] LABS: BUN 29 mg/dl (7-24); CHLORIDE 106 mmol/L (98-107); CREATININE 0.95 mg/dL (0.55-1.02); PHOSPHOROUS 2.5 mg/dL (2.5-4.9); POTASSIUM 3.8 mmol/L (3.5-5.1); SODIUM 140 mmol/L (136-145)
[2019-09-25 08:00] VITALS: BP 104/54; BP 110/74
[2019-09-25 11:37] LABS: BILIRUBIN NEGATIVE (NEGATIVE); BLOOD NEGATIVE (NEGATIVE); CLARITY CLEAR (CLEAR); COLOR YELLOW (YELLOW); GLUCOSE NEGATIVE (NEGATIVE); KETONE NEGATIVE (NEGATIVE); LEUKO ESTERASE 1+ (NEGATIVE); NITRITE NEGATIVE (NEGATIVE); PH 5.5 (5.0-9.0); SPECIFIC GRAVITY 1.025 (1.005-1.030); UROBILINOGEN 0.2 E.U./dl (0.2-1.0)
[2019-09-25 11:47] LABS: BACTERIA 1+; RBC 0-2 rbc/hpf (0-2); WBC 31-40 wbc/hpf (0-5)
[2019-09-25 11:48] LABS: MUCOUS 2+
[2019-09-25 12:00] VITALS: BP 145/80
[2019-09-25 16:00] VITALS: BP 143/75
--- NOTE | 2019-09-25 16:07 | NUR ---
Medicated for c/o pain to tail bone scale 10/10. Family in to visit.
--- NOTE | 2019-09-25 17:31 | NUR ---
States pain is better , yet also states pain is about the same. Family at bedside
[2019-09-25 20:00] VITALS: BP 127/58
--- NOTE | 2019-09-25 20:45 | NUR ---
PATIENT ASSISTED TO BATHROOM AND BACK. PATIENT WANTING TO GO HOME IN THE MORNING. CALL LIGHT WITHIN REACH.
[2019-09-26] VITALS: BP 129/47
--- NOTE | 2019-09-26 00:30 | NUR ---
PATIENT SLEEPING IN BED. RESPIRATIONS DEEP AND UNLABORED. NO DISTRESS NOTED. CALL LIGHT WITHIN REACH.
--- NOTE | 2019-09-26 01:38 | NUR ---
24 HR chart check completed.
[2019-09-26 06:33] LABS: BASO % 0.1 % (0.0-1.0); EOS # 0.7 10*3/uL (0.0-0.4); EOS % 4.4 % (1.0-4.0); HEMATOCRIT 36.3 % (37.0-47.0); HEMOGLOBIN 11.2 g/dl (12.0-16.0); LYMPH % 13.6 % (27.0-41.0); MEAN CELL VOLUME 93.6 fl (81.0-99.0); MEAN CORPUSCULAR HGB 28.9 pg (27.0-31.0); MEAN CORPUSCULAR HGB CONC 30.9 g/dl (33.0-37.0); MEAN PLATELET VOLUME 9.7 fl (9.6-12.3); MONO # 1.2 10*3/uL (0.1-1.0); MONO % 8.3 % (3.0-9.0); NEUT # 10.7 10*3/uL (2.3-7.9); PLATELET COUNT AUTOMATED 360 10*3/uL (130-400); RED BLOOD COUNT 3.88 10*6/uL (4.10-5.10); WHITE BLOOD COUNT 14.8 10*3/uL (4.8-10.8)
[2019-09-26 07:01] LABS: BUN 22 mg/dl (7-24); CHLORIDE 106 mmol/L (98-107); CREATININE 0.89 mg/dL (0.55-1.02); PHOSPHOROUS 3.2 mg/dL (2.5-4.9); POTASSIUM 3.7 mmol/L (3.5-5.1); SODIUM 141 mmol/L (136-145)
--- NOTE | 2019-09-26 07:25 | NUR ---
PT SLEEPING. RESPS REG/EASY WITH NO DISTRESS NOTED. BED LOW. REPORT RECEIVED.
--- NOTE | 2019-09-26 07:25 | NUR ---
PT SLEEPING. RESPS REG/EASY WITH NO DISTRESS NOTED AT THIS TIME. BED LOW. REPORT RECEIVED FROM JERMAINE SANCHEZ.
[2019-09-26 08:00] VITALS: BP 126/58
--- NOTE | 2019-09-26 10:30 | NUR ---
Zipper Sewing Machine Operator in to see patient. No new needs or request at this time. When medically stable she will be discharged to home with the resumption of her [facility].
[2019-09-26] MEDS ORDERED: AMINOPHYLLIN200 MG PO (14:36)
[2019-09-26] MEDS ORDERED: Carafate1 GM/10 ML PO (14:50)
[2019-09-26] MEDS ORDERED: PROTONIX40 MG PO (14:50)
--- NOTE | 2019-09-26 15:25 | NUR ---
Discharge instructions reviewed with patient/family. Patient receptive and verbalizes understanding. Follow-up care arranged. Written instructions given to patient/family. BENEDICT MEJIA
== END 2019-09-26 15:25 | disposition home or self-care (01) | DRG 377 ==
LOC: 5E 12:39
PROVIDERS: Internal Medicine; Internal Medicine Cardiovascular Disease; Internal Medicine Critical Care Medicine; Internal Medicine Nephrology; ADMIT Internal Medicine
PROC: 0DB68ZX Excision of Stomach, Via Natural or Artificial Opening Endoscopic, Diagnostic (ICD-10-PCS; principal; 2019-09-23)
DX: K29.71 Gastritis, unspecified, with bleeding (principal); J96.01 Acute respiratory failure with hypoxia; I50.33 Acute on chronic diastolic (congestive) heart failure; I48.92 Unspecified atrial flutter; N30.01 Acute cystitis with hematuria; I13.0 Hypertensive heart and chronic kidney disease with heart failure and stage 1 through stage 4 chronic kidney disease, or unspecified chronic kidney disease; R73.9 Hyperglycemia, unspecified; D64.9 Anemia, unspecified; D72.829 Elevated white blood cell count, unspecified; N18.3 Chronic kidney disease, stage 3 (moderate); I95.9 Hypotension, unspecified; E03.9 Hypothyroidism, unspecified; I45.81 Long QT syndrome; M12.9 Arthropathy, unspecified; J98.4 Other disorders of lung; I27.20 Pulmonary hypertension, unspecified; I48.0 Paroxysmal atrial fibrillation; I35.0 Nonrheumatic aortic (valve) stenosis; B96.20 Unspecified Escherichia coli [E. coli] as the cause of diseases classified elsewhere; E66.01 Morbid (severe) obesity due to excess calories; G89.4 Chronic pain syndrome; Z85.828 Personal history of other malignant neoplasm of skin; Z98.891 History of uterine scar from previous surgery; Z90.710 Acquired absence of both cervix and uterus; Z98.49 Cataract extraction status, unspecified eye; Z83.3 Family history of diabetes mellitus; Z91.041 Radiographic dye allergy status; Z79.899 Other long term (current) drug therapy

== ENCOUNTER 2019-09-26 22:17 | Emergency (ER) | payer OTHER ==
[~2019-09-26] VITALS: Ht 154.9 cm; Wt 85.3 kg
[~2019-09-26 22:17] MED LIST changes: +AMINOPHYLLIN200 MG PO; +Carafate1 GM/10 ML PO; +DILTIAZEM HCL120 M2 PO; +OXYBUTYNIN CHLOR5 M1 PO; +PRAVASTATIN SOD40 MG PO; +PROTONIX40 MG PO
[2019-09-26 22:19] VITALS: BP 133/64
== END 2019-09-27 01:27 | disposition home or self-care (01) ==
LOC: ED 22:17
DX: M54.31 Sciatica, right side (principal); K21.9 Gastro-esophageal reflux disease without esophagitis; M19.90 Unspecified osteoarthritis, unspecified site; I50.9 Heart failure, unspecified; E03.9 Hypothyroidism, unspecified; E78.00 Pure hypercholesterolemia, unspecified; I11.0 Hypertensive heart disease with heart failure; Z79.899 Other long term (current) drug therapy; Z91.041 Radiographic dye allergy status

== ENCOUNTER 2019-09-29 12:18 | Emergency (ER) | payer OTHER ==
[~2019-09-29] VITALS: Ht 154.9 cm; Wt 86.2 kg
--- NOTE | ~2019-09-29 | EKG ---
[place], [place] ELECTROCARDIOGRAM REPORT NAME: ADAMS LANDAVERDE UNIT #: [id number] ROOM: DOCTOR: AB DRAFT REPORT BIRTHDATE: [birth year] [facility] Test Date: 2019-09-29 Test Time: 15:00:25 Pat Name: ADAMS LANDAVERDE Department: Room: Gender: F Wind Farm Engineer: SS RESP : 1935 Requested By: VINCENT OCASIO Order Number: [id number] Reading MD: Vimal Rizvi Measurements Intervals [place] Rate: 51 P: 54 NV: 199 QRS: 17 QRSD: 96 T: 31 QT: 475 QTc: 438 Interpretive Statements Sinus rhythm, sinus bradycardia Compared to ECG 09/20/2019 15:44:25 Electronically Signed On 09-30-2019 7:42:11 PST by Vimal Rizvi CM:EKGRPT:ELECTROCARDIOGRAM REPORT [id number] VINCENT BERGER DRAFT REPORT VINCENT OCASIO MD
[2019-09-29 12:18] VITALS: BP 126/52
[2019-09-29 13:34] LABS: BILIRUBIN NEGATIVE (NEGATIVE); BLOOD NEGATIVE (NEGATIVE); CLARITY SL CLOUDY (CLEAR); COLOR YELLOW (YELLOW); GLUCOSE NEGATIVE (NEGATIVE); KETONE NEGATIVE (NEGATIVE); LEUKO ESTERASE 1+ (NEGATIVE); NITRITE NEGATIVE (NEGATIVE); SPECIFIC GRAVITY 1.025 (1.005-1.030); UROBILINOGEN 0.2 E.U./dl (0.2-1.0)
[2019-09-29 13:45] LABS: BACTERIA 1+; EPITHELIAL CELLS 15-20; WBC 41-50 wbc/hpf (0-5)
[2019-09-29 14:07] LABS: HEMATOCRIT 34.3 % (37.0-47.0); HEMOGLOBIN 10.6 g/dl (12.0-16.0); MEAN CELL VOLUME 95.3 fl (81.0-99.0); MEAN CORPUSCULAR HGB 29.4 pg (27.0-31.0); MEAN CORPUSCULAR HGB CONC 30.9 g/dl (33.0-37.0); MEAN PLATELET VOLUME 9.6 fl (9.6-12.3); PLATELET COUNT AUTOMATED 314 10*3/uL (130-400); RED CELL DISTRI WIDTH 18.5 % (0-14.5); WHITE BLOOD COUNT 13.4 10*3/uL (4.8-10.8)
[2019-09-29 14:18] LABS: ACT PARTIAL THROMBO TIME 21.8 SECONDS (20.0-32.1); INTERNATIONAL NORM RATIO 0.9 (2.0-3.5)
[2019-09-29 14:22] LABS: CREATININE 1.08 mg/dL (0.55-1.02); TOTAL PROTEIN 6.5 gm/dL (6.4-8.2)
[2019-09-29 14:25] LABS: PLATELET SUFFICIENCY NORMAL (NORMAL); TOTAL CELLS COUNTED 100 #CELLS
[2019-09-29 14:26] LABS: OVALOCYTES FEW
== END 2019-09-29 15:31 | disposition home or self-care (01) ==
LOC: ED 12:18
PROVIDERS: Emergency Medicine
DX: S06.0X0A Concussion without loss of consciousness, initial encounter (principal); S80.212A Abrasion, left knee, initial encounter; R79.1 Abnormal coagulation profile; I48.91 Unspecified atrial fibrillation; E03.9 Hypothyroidism, unspecified; E66.01 Morbid (severe) obesity due to excess calories; I50.9 Heart failure, unspecified; I11.0 Hypertensive heart disease with heart failure; K21.9 Gastro-esophageal reflux disease without esophagitis; M19.90 Unspecified osteoarthritis, unspecified site; E78.00 Pure hypercholesterolemia, unspecified; Z79.899 Other long term (current) drug therapy; Z91.041 Radiographic dye allergy status; Z87.891 Personal history of nicotine dependence; J44.9 Chronic obstructive pulmonary disease, unspecified; Z90.710 Acquired absence of both cervix and uterus; W18.39XA Other fall on same level, initial encounter; Y93.01 Activity, walking, marching and hiking; Y92.531 Health care provider office as the place of occurrence of the external cause; Y99.8 Other external cause status

== ENCOUNTER 2019-10-07 13:17 | Inpatient (IN) | payer OTHER ==
[~2019-10-07] VITALS: Ht 154.9 cm; Wt 86.9 kg
[2019-10-07 13:19] VITALS: BP 131/52
[2019-10-07 14:22] LABS: BASO % 0.3 % (0.0-1.0); EOS # 0.3 10*3/uL (0.0-0.4); EOS % 2.2 % (1.0-4.0); HEMATOCRIT 33.6 % (37.0-47.0); HEMOGLOBIN 10.4 g/dl (12.0-16.0); LYMPH % 7.9 % (27.0-41.0); MEAN CORPUSCULAR HGB 29.7 pg (27.0-31.0); MEAN PLATELET VOLUME 9.7 fl (9.6-12.3); MONO # 1.1 10*3/uL (0.1-1.0); MONO % 8.3 % (3.0-9.0); NEUT # 10.5 10*3/uL (2.3-7.9); NEUT % 80.9 % (47.0-73.0); PLATELET COUNT AUTOMATED 262 10*3/uL (130-400); RED CELL DISTRI WIDTH 18.4 % (0-14.5); WHITE BLOOD COUNT 12.9 10*3/uL (4.8-10.8)
[2019-10-07 14:31] LABS: ACT PARTIAL THROMBO TIME 24.5 SECONDS (20.0-32.1); INTERNATIONAL NORM RATIO 0.9 (2.0-3.5)
[2019-10-07 14:35] LABS: ALBUMIN 2.8 gm/dl (3.1-4.5); ALKALINE PHOSPHATASE 53 U/L (45-117); BUN 26 mg/dl (7-24); CHLORIDE 110 mmol/L (98-107); CREATININE 1.01 mg/dL (0.55-1.02); POTASSIUM 3.9 mmol/L (3.5-5.1); SGOT/AST 10 IU/L (3-35); SGPT/ALT 18 U/L (12-78); SODIUM 145 mmol/L (136-145); TOTAL PROTEIN 6.5 gm/dL (6.4-8.2)
[2019-10-07 16:00] VITALS: BP 132/46
[2019-10-07 16:15] VITALS: BP 131/52
--- NOTE | 2019-10-07 16:15 | NUR ---
Time: 1614 A 84 year old FEMALE admitted to 5E under services of DR. JENN MONTELONGO,JUNIE. Pt. arrived via stretcher from ER. Chief complaint: NOSE BLEED, RECTAL BLEED, SHINGLES RASH LEFT FLANK RANJEET CÁRDENAS
[2019-10-07] MEDS ORDERED: HYDROCODONE-AC1 EAC1 PO (16:41)
--- NOTE | 2019-10-07 17:30 | NUR ---
DR. DE LUNA ON FLOOR. ADVISED OF CONSULT, HE GAVE VO FOR CBC IN AM, H&H IN DAILY, REGULAR DIET, AND PROTONIX
[2019-10-07 20:00] VITALS: BP 116/53
--- NOTE | 2019-10-07 21:15 | NUR ---
NORCO ADMINISTERED FOR PT C/O 10/10 BACK, HIP, BUTTOCKS PAIN. WILL CONTINUE TO MONITOR AND REASSESS.
--- NOTE | 2019-10-07 22:00 | NUR ---
PT ASLEEP. NO SIGNS OF DISCOMFORT OR DISTRESS NOTED.
--- NOTE | 2019-10-07 22:36 | NUR ---
SPOKE WITH DR MITCHELL REGARDING ORDER FOR FLUCONAZOLE FOR VAGINAL ITCHING. PT STATES SHE "ISN'T HAVING ANY ITCHNIG THAT SHE IS AWARE OF". HE STATED TO HOLD MEDICATION IF THE PT IS DENYING THESE SYMPTOMS. MEDICATION NOT GIVEN.
[2019-10-08] VITALS: BP 120/48
--- NOTE | 2019-10-08 02:06 | NUR ---
SCDS OFF AT THIS TIME PER PT REQUEST.
--- NOTE | 2019-10-08 02:58 | NUR ---
24 HOUR CHART CHECK COMPLETE.
--- NOTE | 2019-10-08 05:30 | NUR ---
TYLERNOL ADMINISTERED FOR PT C/O HEADACHE.
[2019-10-08 06:27] LABS: BASO % 0.3 % (0.0-1.0); EOS # 0.4 10*3/uL (0.0-0.4); HEMATOCRIT 31.9 % (37.0-47.0); HEMOGLOBIN 10.1 g/dl (12.0-16.0); LYMPH # 1.5 10*3/uL (1.3-4.4); LYMPH % 12.7 % (27.0-41.0); MEAN CELL VOLUME 94.7 fl (81.0-99.0); MEAN CORPUSCULAR HGB CONC 31.7 g/dl (33.0-37.0); MEAN PLATELET VOLUME 10.2 fl (9.6-12.3); MONO # 1.2 10*3/uL (0.1-1.0); MONO % 9.6 % (3.0-9.0); NEUT # 8.9 10*3/uL (2.3-7.9); NEUT % 74.1 % (47.0-73.0); PLATELET COUNT AUTOMATED 270 10*3/uL (130-400); RED BLOOD COUNT 3.37 10*6/uL (4.10-5.10); RED CELL DISTRI WIDTH 18.5 % (0-14.5)
[2019-10-08 06:50] LABS: ALBUMIN 2.5 gm/dl (3.1-4.5); ALKALINE PHOSPHATASE 50 U/L (45-117); BUN 21 mg/dl (7-24); CHLORIDE 110 mmol/L (98-107); CHOLESTEROL 173 mg/dL (<200); CREATININE 0.85 mg/dL (0.55-1.02); HDL CHOLESTEROL 54 mg/dl (40-60); IRON 49 ug/dL (50-170); LDL CHOLESTEROL 91 mg/dL (9-159); PHOSPHOROUS 3.3 mg/dL (2.5-4.9); POTASSIUM 3.6 mmol/L (3.5-5.1); SGOT/AST 13 IU/L (3-35); SGPT/ALT 15 U/L (12-78); SODIUM 144 mmol/L (136-145); TOTAL IRON BINDING CAPACITY 286 ug/dl (250-450); TRIGLYCERIDES 140 mg/dl (<150); VLDL CHOLESTEROL 28 mg/dL (6-40)
[2019-10-08 07:43] LABS: FERRITIN 37.8 ng/mL (10.0-291.0); VITAMIN D, 25-HYDROXY 43.6 ng/mL (30-100)
--- NOTE | 2019-10-08 07:57 | NUR ---
C/O PAIN TO LEGS OF 08/02. NORCO GIVEN AT THIS TIME. WILL CONT TO MONITOR. CALL LIGHT IN REACH.
[2019-10-08 08:00] VITALS: BP 114/65
--- NOTE | 2019-10-08 08:57 | NUR ---
JAMES EFF. WILL CONT TO MONITOR. CALL LIGHT IN REACH.
--- NOTE | 2019-10-08 11:00 | NUR ---
PHYSICAL THERAPY PT EVAL COMPLETED 10/09/19: RECOMMEND PT WHILE HERE TO ADDRESS DECREASED FUNCTIONAL MOBILITY AND ALLOW RETURN TO HOME. PT EVAL IS MODERATE COMPLEXITY BASED ON EVAL. THANK YOU FOR REFERRAL ALPESH DE JESUS PT
[2019-10-08 12:00] VITALS: BP 94/56
[2019-10-08 16:00] VITALS: BP 140/90
[2019-10-08 16:11] LABS: BILIRUBIN 1+ (NEGATIVE); BLOOD NEGATIVE (NEGATIVE); CLARITY SL CLOUDY (CLEAR); COLOR YELLOW (YELLOW); GLUCOSE NEGATIVE (NEGATIVE); KETONE NEGATIVE (NEGATIVE); LEUKO ESTERASE 1+ (NEGATIVE); NITRITE NEGATIVE (NEGATIVE); PH 5.5 (5.0-9.0); SPECIFIC GRAVITY 1.025 (1.005-1.030); UROBILINOGEN 0.2 E.U./dl (0.2-1.0)
[2019-10-08 16:22] LABS: BACTERIA 2+; EPITHELIAL CELLS 45-50; MUCOUS 2+; WBC 21-30 wbc/hpf (0-5)
[2019-10-08 20:00] VITALS: BP 121/51
--- NOTE | 2019-10-08 21:22 | NUR ---
PATIENT COMPLAINS OF 6/10 LEG PAIN. MEDICATED PER ORDER. WILL CONTINUE TO MONITOR FOR RELIEF. VOICES NO OTHER CONCERNS AT THIS TIME. RESTING IN BED. CALL LIGHT WITHIN REACH
--- NOTE | 2019-10-08 22:30 | NUR ---
NORCO EFFECTIVE PER PT
--- NOTE | 2019-10-08 23:31 | NUR ---
24 HR chart check completed.
[2019-10-09] VITALS: BP 103/44; BP 112/54
--- NOTE | 2019-10-09 02:17 | NUR ---
PT COMPLAINS OF 7/10 LEG PAIN. MEDICATED PER ORDER. WILL CONTINUE TO MONITOR FOR RELEIF. VOICES NO OTHER CONCERNS AT THIS TIME. RESTING IN BED. CALL LIGHT WITHIN REACH
--- NOTE | 2019-10-09 03:17 | NUR ---
NORCO EFFECTIVE PER PT
[2019-10-09 06:27] LABS: HEMATOCRIT 30.6 % (37.0-47.0); HEMOGLOBIN 9.5 g/dl (12.0-16.0)
[2019-10-09 08:00] VITALS: BP 134/63
--- NOTE | 2019-10-09 08:39 | NUR ---
C/O PAIN TO LEGS AND HIPS OF 06/01. NORCO GIVEN AT THIS TIME. WILL CONT TO MONITOR. CALL LIGHT IN REACH.
--- NOTE | 2019-10-09 09:39 | NUR ---
[facility]. WILL CONT TO MONITOR.
[2019-10-09 12:00] VITALS: BP 101/48
--- NOTE | 2019-10-09 13:30 | NUR ---
PT SITTING ON TOILET VOMITING. SPOKE TO DR BARAJAS. NEW ORDER RECEIVED FOR SHERIDAN.
--- NOTE | 2019-10-09 13:43 | NUR ---
ZOFRAN GIVEN FOR NAUSEA/VOMITING. WILL CONT TO MONITOR. CALL LIGHT IN REACH.
--- NOTE | 2019-10-09 14:07 | NUR ---
PER DR BARAJAS ORDER CT OF ABDOMEN.
--- NOTE | 2019-10-09 14:37 | NUR ---
C/O PAIN TO LEGS AND HIPS. DILAUDID GIVEN IV AT THIS TIME. WILL CONT TO MONITOR. CALL LIGHT IN REACH.
--- NOTE | 2019-10-09 14:43 | NUR ---
SHERIDAN EFF. WILL CONT TO MONITOR. CALL LIGHT IN REACH.
--- NOTE | 2019-10-09 15:37 | NUR ---
IV DILAUDID EFF PER PT. WILL CONT TO MONITOR. CALL LIGHT IN REACH.
[2019-10-09 16:00] VITALS: BP 104/45
--- NOTE | 2019-10-09 17:50 | NUR ---
CT SCAN RESULTS CAME BACK AND CALLED TO DR DE LUNA. DR DE LUNA SAID TO CONTINUE WITH BOWEL PREP.
[2019-10-09 20:00] VITALS: BP 115/65
--- NOTE | 2019-10-09 22:31 | NUR ---
PT COMPLAINS OF NAUSEA FROM BOWEL PREP. MEDICATED PER ORDER. WILL MONITOR FOR RELIEF.
--- NOTE | 2019-10-09 22:46 | NUR ---
24 HR chart check completed.
--- NOTE | 2019-10-09 23:24 | NUR ---
PTS BP 98/32. CALLED DR BARAJAS AND HE STATED TO DO A CBC STAT AND 500CC NORMAL SALINE BOLUS.
[2019-10-09 23:41] LABS: BASO % 0.2 % (0.0-1.0); EOS # 0.2 10*3/uL (0.0-0.4); EOS % 1.3 % (1.0-4.0); HEMATOCRIT 31.1 % (37.0-47.0); HEMOGLOBIN 9.5 g/dl (12.0-16.0); LYMPH # 1.1 10*3/uL (1.3-4.4); LYMPH % 6.8 % (27.0-41.0); MEAN CORPUSCULAR HGB CONC 30.5 g/dl (33.0-37.0); MEAN PLATELET VOLUME 9.5 fl (9.6-12.3); MONO # 1.3 10*3/uL (0.1-1.0); MONO % 8.2 % (3.0-9.0); NEUT # 12.8 10*3/uL (2.3-7.9); NEUT % 83.1 % (47.0-73.0); PLATELET COUNT AUTOMATED 274 10*3/uL (130-400); RED BLOOD COUNT 3.17 10*6/uL (4.10-5.10); RED CELL DISTRI WIDTH 18.4 % (0-14.5); WHITE BLOOD COUNT 15.4 10*3/uL (4.8-10.8)
[2019-10-09 23:49] LABS: MEAN CELL VOLUME 98.1 fl (81.0-99.0)
[2019-10-10] VITALS (10 sets, daily range): BP systolic 91–124; BP diastolic 32–79
--- NOTE | 2019-10-10 00:31 | NUR ---
BP IS NOW 92/40. ATTEMPTED TO REACH DR BARAJAS. WILL TRY AGAIN.
--- NOTE | 2019-10-10 00:40 | NUR ---
SPOKE WITH DR BARAJAS REGARDING PTS BP. STATED TO GIVE ONE LITER OF FLUIDS NOW.
--- NOTE | 2019-10-10 03:10 | NUR ---
PTS BP IS NOW 118/44. RESTING IN BED. VOICES NO CONCERNS. CALL LIGHT WITHIN REACH
--- NOTE | 2019-10-10 04:07 | NUR ---
Patient sleeping. Respirations relaxed and easy. Siderails up . [place] on. CALL LIGHT WITHIN REACH HISSOM,ANABELLA
[2019-10-10 06:52] LABS: BASO % 0.2 % (0.0-1.0); EOS # 0.3 10*3/uL (0.0-0.4); EOS % 2.2 % (1.0-4.0); HEMATOCRIT 34.2 % (37.0-47.0); HEMOGLOBIN 10.2 g/dl (12.0-16.0); LYMPH # 1.3 10*3/uL (1.3-4.4); LYMPH % 9.1 % (27.0-41.0); MEAN CELL VOLUME 98.8 fl (81.0-99.0); MEAN CORPUSCULAR HGB 29.5 pg (27.0-31.0); MEAN CORPUSCULAR HGB CONC 29.8 g/dl (33.0-37.0); MONO # 1.1 10*3/uL (0.1-1.0); NEUT # 11.1 10*3/uL (2.3-7.9); NEUT % 79.9 % (47.0-73.0); PLATELET COUNT AUTOMATED 318 10*3/uL (130-400); RED BLOOD COUNT 3.46 10*6/uL (4.10-5.10); RED CELL DISTRI WIDTH 18.4 % (0-14.5); WHITE BLOOD COUNT 13.8 10*3/uL (4.8-10.8)
[2019-10-10 07:22] LABS: CREATININE 1.12 mg/dL (0.55-1.02); POTASSIUM 3.4 mmol/L (3.5-5.1)
--- NOTE | 2019-10-10 07:50 | NUR ---
PHYSICAL THERAPY PT SITTING IN RECLINER UPON ARRIVAL. PT AGREED TO ALL PHYSICAL THERAPY TREATMENT THIS VISIT. PT IDENTIFIED BY NAME AND . PT PERFORMED STS FROM RECLINER WIITH Vladislav X2 AND USE OF BUE FOR ASSISITANCE WITH VC'S FOR SAFETY. PT PERFORMED STAND PIVOT TRANSFER [place] [facility] [place]av X1 AND VC'S FOR SAFETY AND POSTURE. PT PERFORMED STS TO AND FROM BS WITH CGA AND VC'S FOR SAFETY. PT GAIT TRAINED 15FT X1 WITH FWW AND CGA AND VC'S FOR POSTURE, SAFETY WITH WALKER,PROPER POSTURE AND TO STAY ON TASK. PT PERFORMED STS TO TOILET WITH Vladislav AND USE ON ONE HAND RAIL WITH VC'S FOR SAFETY AND CONTROL WITH SITTING SO PT WOULDN'T PERFORM AN UNSAFE STS. PT SITTING IN BATHROOM ON TOILET WITH AIDE AT END OF SESSION. PT HAD REPORTED NO OTHER NEEDS AT THIS TIME. PT SEEN 1:1 FOR 30MINS. HIREN DESIR PTA
--- NOTE | 2019-10-10 07:58 | NUR ---
Nursing screen received and Occupational Therapy referral received. Thank you. Celestina Arriaga OTR/l
--- NOTE | 2019-10-10 08:28 | NUR ---
PHYSICAL THERAPY Screen received, Physical Therapy as been ordered and eval has been completed thank you. Edna Bob PT
--- NOTE | 2019-10-10 08:54 | NUR ---
FAMILY IN TO SEE PATIENT.
--- NOTE | 2019-10-10 09:15 | NUR ---
PT GIVEN IV DILAUDID PER PRN ORDER FOR C/O HEADACHE AND BILATERAL HIP PAIN/DISCOMFORT. RATES PAIN 06/01. WILL MONITOR EFFECTIVENESS. CALL LIGHT WITHIN REACH.
--- NOTE | 2019-10-10 10:00 | NUR ---
PAIN BEING RELIEVED PER PT.
--- NOTE | 2019-10-10 10:30 | NUR ---
Director Business Systems in to talk to patient. Patient states lives at home alone with her 5 children checking in on her and her 1 son living next door. There are 0 steps in the home. Physician: Dr. Corey Stapleton [facility] Home health services: [facility] on Thursday and for 4 hours each day Patient's level of ADLs: MINIMAL ASSIST Patient has working utilities: yes DME: walker, nebulizer Follow-up physician's appointment after d/c: she prefers to make her own follow up appt after discharge Does patient want to access PORTAL?: no Discharge plan discussed with patient and 2 sons and a daughter who are at the bedside. She lives at home alone with her family checking in on her and her 1 son living right next door. She is independent in her ADLs and ambulates with a walker while inside the house. When ambulating outside the house she holds onto the person with her. Discussed home health care services and she states she currently has [facility] for 4 hours on Thursday and . Her meals are delivered. When medically stable she will be discharged to home with the resumption of her [facility]. Her son will provide transportation on discharge. FARIDA HORTON
--- NOTE | 2019-10-10 12:16 | NUR ---
NOTIFIED REGADING BP 92/46. PT ASYMPTOMATIC. ORDERS TO BE ENTERED PER PHYSICIAN.
--- NOTE | 2019-10-10 12:40 | NUR ---
IV FLUIDS INITIATED PER ORDER. FAMILY AT BEDSIDE.
--- NOTE | 2019-10-10 13:38 | NUR ---
SURGERY ON FLOOR TO TRANSPORT PATIENT FOR SCHEDULED PROCEDURE.
--- NOTE | 2019-10-10 13:54 | NUR ---
Nursing reports patient is waiting to go for a colonoscopy. OTR will attempt evaluation at a later date. Celestina Arriaga OTR/Tonia
--- NOTE | 2019-10-10 20:41 | NUR ---
PRN NORCO ADMINISTERED PRESCRIBED FOR PT C/O BACK AND LEG PAIN RATED A 10/10 ON THE PAIN SCALE. WILL CONTINUE TO MONITOR AND REASSESS. NO OTHER COMPLAINTS AT THIS TIME.
--- NOTE | 2019-10-10 21:13 | NUR ---
PT ASLEEP AT THIS TIME. NO SIGNS OF DISCOMFORT OR DISTRESS NOTED.
--- NOTE | 2019-10-10 23:40 | NUR ---
24 HOUR CHART CHECK COMPLETE.
[2019-10-11] VITALS: BP 92/53
--- NOTE | 2019-10-11 05:15 | NUR ---
DILAUDID ADMINISTERED FOR PT C/O 09/01 LEG AND HIP PAIN. PT STATES IT'S "HARD FOR HER TO WALK". WILL CONTINUE TO MONITOR AND REASSESS. NO OTHER COMPLAINTS AT THIS TIME.
[2019-10-11 05:16] VITALS: BP 120/60
[2019-10-11 06:54] LABS: BASO % 0.3 % (0.0-1.0); EOS # 0.4 10*3/uL (0.0-0.4); EOS % 4.1 % (1.0-4.0); HEMATOCRIT 33.2 % (37.0-47.0); HEMOGLOBIN 9.9 g/dl (12.0-16.0); LYMPH # 1.2 10*3/uL (1.3-4.4); LYMPH % 12.8 % (27.0-41.0); MEAN CELL VOLUME 98.8 fl (81.0-99.0); MEAN CORPUSCULAR HGB 29.5 pg (27.0-31.0); MEAN CORPUSCULAR HGB CONC 29.8 g/dl (33.0-37.0); MEAN PLATELET VOLUME 10.1 fl (9.6-12.3); MONO # 0.8 10*3/uL (0.1-1.0); MONO % 8.2 % (3.0-9.0); NEUT # 7.2 10*3/uL (2.3-7.9); NEUT % 74.2 % (47.0-73.0); PLATELET COUNT AUTOMATED 320 10*3/uL (130-400); RED BLOOD COUNT 3.36 10*6/uL (4.10-5.10); RED CELL DISTRI WIDTH 18.3 % (0-14.5); WHITE BLOOD COUNT 9.7 10*3/uL (4.8-10.8)
[2019-10-11 07:19] LABS: BUN 12 mg/dl (7-24); CHLORIDE 114 mmol/L (98-107); CREATININE 0.93 mg/dL (0.55-1.02); SODIUM 144 mmol/L (136-145)
[2019-10-11 08:00] VITALS: BP 129/68
--- NOTE | 2019-10-11 10:30 | NUR ---
Atg Architect in to see patient. No new needs or request at this time. When medically stable she will be discharged to home with the resumption of her [facility]. Per multidisciplinary discharge planning meeting she had a colo yesterday which showed ischemic colitis, treating with Cal and Destiny.
--- NOTE | 2019-10-11 11:30 | NUR ---
PT REQUESTED AND WAS MEDICATED WITH NORCO FOR C/O GENERALIZED PAIN. CALL LIGHT IN REACH. WILLL MONITOR ISOLATION PRECAUTIONS MAINTAINED.
--- NOTE | 2019-10-11 11:32 | NUR ---
PHYSICAL THERAPY Patient presented to therapy in sitting in bedside chair with no chair alarm present and call light within reach. Patient's grand-daughter just arriving to visit with the patient. Patient gives informed consent for treatment. Patient was identified by name and on wristband. Patient performed sit to stand transfer with SBA. Patient ambulated 60' x 1, then 40' x 2 with Wh Walker and Close Supervision to CGA X 1 inside room due to isolation precautions. Patient then performed 30 second sit to stand test at 7 sit to stands in 30 seconds time with SBA. LAURA COATS was ASKED IF THE PATIENT NEEDS A CHAIR ALARM ATTACHED AND SHE SAID SHE DOES NOT NEED A CHAIR ALARM. Patient had 1 minor LOB on a turn, but the patient corrected this herself. Patient was left in bedside chair with call light within reach, no chair alarm, and grand-daughter visiting in the room. Patient's LAURA COATS was in room attending to the patient. Patient was 1:1 with this INSTRUMENT LENS INSPECTOR for 20 minutes total. DICK NICOLE INSTRUMENT LENS INSPECTOR
[2019-10-11 12:00] VITALS: BP 130/65
--- NOTE | 2019-10-11 12:30 | NUR ---
MEDICATION EFFECTIVE PER PT. WILL MONITOR
[2019-10-11] MEDS ORDERED: VALTREX1000 MG PO (14:40)
[2019-10-11] MEDS ORDERED: FLAGYL500 MG PO (14:40)
[2019-10-11] MEDS ORDERED: NYSTOP60 GM T (14:40)
--- NOTE | 2019-10-11 14:55 | NUR ---
Discharge instructions reviewed with patient/family. Patient receptive and verbalizes understanding. Follow-up care arranged. Written instructions given to patient/family. ALICE ESPARZA
--- NOTE | 2019-10-12 07:49 | NUR ---
PHYSICAL THERAPY CO-SIGN I approve of the Physical Therapy notes written above. Edna Bob PT
== END 2019-10-11 15:24 | disposition home or self-care (01) | DRG 377 ==
LOC: ED 13:17 → EDHOLD 15:34 → 5E 15:34
PROVIDERS: Emergency Medicine; Internal Medicine; Internal Medicine Gastroenterology; Internal Medicine Nephrology; Student in an Organized Health Care Education/Training Program; ADMIT Internal Medicine
PROC: 0DBL8ZX Excision of Transverse Colon, Via Natural or Artificial Opening Endoscopic, Diagnostic (ICD-10-PCS; principal; 2019-10-10)
DX: K57.31 Diverticulosis of large intestine without perforation or abscess with bleeding (principal); K55.039 Acute (reversible) ischemia of large intestine, extent unspecified; E43 Unspecified severe protein-calorie malnutrition; I50.32 Chronic diastolic (congestive) heart failure; R65.10 Systemic inflammatory response syndrome (SIRS) of non-infectious origin without acute organ dysfunction; K29.51 Unspecified chronic gastritis with bleeding; I11.0 Hypertensive heart disease with heart failure; K63.9 Disease of intestine, unspecified; B02.9 Zoster without complications; D64.9 Anemia, unspecified; E87.6 Hypokalemia; R00.0 Tachycardia, unspecified; D72.829 Elevated white blood cell count, unspecified; L29.8 Other pruritus; E11.65 Type 2 diabetes mellitus with hyperglycemia; R04.0 Epistaxis; R79.89 Other specified abnormal findings of blood chemistry; R07.9 Chest pain, unspecified; E03.9 Hypothyroidism, unspecified; E66.01 Morbid (severe) obesity due to excess calories; G89.4 Chronic pain syndrome; I48.91 Unspecified atrial fibrillation; M12.9 Arthropathy, unspecified; M54.30 Sciatica, unspecified side; Z91.041 Radiographic dye allergy status; Z91.09 Other allergy status, other than to drugs and biological substances; Z87.440 Personal history of urinary (tract) infections; Z85.828 Personal history of other malignant neoplasm of skin; Z98.49 Cataract extraction status, unspecified eye; Z98.891 History of uterine scar from previous surgery; Z90.711 Acquired absence of uterus with remaining cervical stump; Z83.3 Family history of diabetes mellitus; Z82.49 Family history of ischemic heart disease and other diseases of the circulatory system; Z79.899 Other long term (current) drug therapy; Z68.35 Body mass index [BMI] 35.0-35.9, adult

== ENCOUNTER → 2019-10-27 | Outpatient (CLI) | payer OTHER ==
[~2019-10-27] MED LIST changes: +FLAGYL500 MG PO; +HYDROCODONE-AC1 EAC1 PO; +NYSTOP60 GM T; +VALTREX1000 MG PO
== END | disposition home or self-care (01) ==
LOC: RAD 11:36
DX: M16.0 Bilateral primary osteoarthritis of hip (principal); M47.817 Spondylosis without myelopathy or radiculopathy, lumbosacral region

== ENCOUNTER → 2019-11-29 | Outpatient (CLI) | payer OTHER | END | disposition home or self-care (01) | LOC: RAD 13:54 | DX: S32.010A Wedge compression fracture of first lumbar vertebra, initial encounter for closed fracture (principal); Z78.0 Asymptomatic menopausal state; X58.XXXA Exposure to other specified factors, initial encounter; Y93.89 Activity, other specified; Y92.89 Other specified places as the place of occurrence of the external cause; Y99.8 Other external cause status ==

== ENCOUNTER 2020-04-11 20:12 | Inpatient (IN) | payer OTHER ==
[~2020-04-11] VITALS: Ht 157.4 cm; Wt 81.7 kg
[2020-04-11 20:32] VITALS: BP 112/82
[2020-04-11 21:20] LABS: BILIRUBIN NEGATIVE (NEGATIVE); CLARITY CLOUDY (CLEAR); COLOR YELLOW (YELLOW); GLUCOSE NEGATIVE (NEGATIVE); KETONE NEGATIVE (NEGATIVE)
[2020-04-11 21:21] LABS: BLOOD NEGATIVE (NEGATIVE); LEUKO ESTERASE 3+ (NEGATIVE); NITRITE POSITIVE (NEGATIVE); SPECIFIC GRAVITY 1.015 (1.005-1.030); UROBILINOGEN 0.2 E.U./dl (0.2-1.0)
[2020-04-11 21:26] LABS: RBC 0-2 rbc/hpf (0-2); WBC TNTC wbc/hpf (0-5)
[2020-04-11 21:27] LABS: BACTERIA 4+; MUCOUS TRACE
[2020-04-11 21:36] LABS: MEAN CELL VOLUME 89.8 fl (81.0-99.0); MEAN CORPUSCULAR HGB 26.9 pg (27.0-31.0); PLATELET COUNT AUTOMATED 340 10*3/uL (130-400); RED BLOOD COUNT 4.01 10*6/uL (4.10-5.10); RED CELL DISTRI WIDTH 17.1 % (0-14.5); WHITE BLOOD COUNT 12.3 10*3/uL (4.8-10.8)
--- NOTE | 2020-04-11 21:40 | NUR ---
PT TO CT.
[2020-04-11 21:49] LABS: ALBUMIN 3.5 gm/dl (3.1-4.5); CREATININE 1.33 mg/dL (0.55-1.02); POTASSIUM 4.3 mmol/L (3.5-5.1); TOTAL PROTEIN 7.5 gm/dL (6.4-8.2)
[2020-04-11 21:54] LABS: ATYPICAL LYMPHS 1 % (0-0); PLATELET SUFFICIENCY NORMAL (NORMAL); TOTAL CELLS COUNTED 100 #CELLS
--- NOTE | 2020-04-11 22:23 | NUR ---
PT RESTING COMFORTABLY. SAFETY PRECAUTIONS INTACT. CALL LIGHT WITHIN REACH.
--- NOTE | 2020-04-11 23:44 | NUR ---
PT RESTING. SAFETY PRECAUTIONS INTACT. CALL LIGHT WITHIN REACH.
--- NOTE | 2020-04-12 | NUR ---
PT SON ON PHONE. VERBAL PERMISSION TO TALK. [phone] PIERRE
--- NOTE | 2020-04-12 00:50 | NUR ---
SON CONTACTED AND INFORMED OF ADMISSION. PT RESTING. SAFETY PRECAUTIONS INTACT. CALL LIGHT WITHIN REACH.
[2020-04-12 01:28] VITALS: BP 108/63
--- NOTE | 2020-04-12 01:28 | NUR ---
A 84, admitted to 4E, under the services of JUNIE Jeffery MD with a diagnosis of [place], UTI. Chief complaint is ABDOMINAL PAIN. Patient arrived via stretcher from ER. Monitor applied. Initial assessment completed. Vital signs taken and recorded. JUNIE JEFFERY MD notified of admission to the unit. Orders received. See assessment for past medical history, medications and allergies. Patient and/or family oriented to unit. [facility] visitation policy reviewed. Clothing/patient valuable form completed. DIAMANTE HUTCHISON
[2020-04-12] MEDS ORDERED: Percocet 325 MG1 TAB PO (01:47)
[2020-04-12] MEDS ORDERED: ALENDRONATE SOD70 M1 PO (01:51)
--- NOTE | 2020-04-12 01:53 | NUR ---
PT MED REC UP TO DATE PER PT RECALL.
--- NOTE | 2020-04-12 02:06 | NUR ---
PT REQUESTED AND RECEIVED PO TYLENOL FOR C/O "BELLY ACHE" RATED 6/10. PT STATES SHE IS HAVING PAIN ALL OVER ABDOMEN. WILL MONITOR. CALL LIGHT IN REACH. BED ALARM INTACT.
--- NOTE | 2020-04-12 02:40 | NUR ---
OLD ADVANCED DIRECTIVES INCLUDING A DNR-ARREST PAPER FOUND IN CHART JANETTE. RN QUESTIONED PATIENT ON WISHES. PT WISHES TO BE A FULL CODE.
--- NOTE | 2020-04-12 03:00 | NUR ---
EARLIER MEDICATION APPEARS EFFECTIVE. PT ASLEEP IN BED. RESPIRATIONS EASY. NO S/S OF DISTRESS NOTED. WILL MONITOR. CALL LIGHT IN REACH.
[2020-04-12 05:47] LABS: CREATININE 1.18 mg/dL (0.55-1.02)
[2020-04-12 06:24] LABS: BASO # 0.1 10*3/uL (0.0-0.1); BASO % 0.4 % (0.0-1.0); EOS # 0.4 10*3/uL (0.0-0.4); EOS % 3.3 % (1.0-4.0); HEMATOCRIT 35.8 % (37.0-47.0); LYMPH # 1.6 10*3/uL (1.3-4.4); LYMPH % 13.6 % (27.0-41.0); MEAN CELL VOLUME 89.3 fl (81.0-99.0); MEAN CORPUSCULAR HGB 26.9 pg (27.0-31.0); MEAN CORPUSCULAR HGB CONC 30.2 g/dl (33.0-37.0); MEAN PLATELET VOLUME 10.2 fl (9.6-12.3); MONO # 1.1 10*3/uL (0.1-1.0); MONO % 9.4 % (3.0-9.0); NEUT # 8.6 10*3/uL (2.3-7.9); NEUT % 72.9 % (47.0-73.0); PLATELET COUNT AUTOMATED 362 10*3/uL (130-400); RED BLOOD COUNT 4.01 10*6/uL (4.10-5.10); WHITE BLOOD COUNT 11.8 10*3/uL (4.8-10.8)
[2020-04-12 08:00] VITALS: BP 110/56
--- NOTE | 2020-04-12 08:44 | NUR ---
PATIENT SITTING UP IN RECLINER CHAIR. NO DISTRESS NOTED. RESPIRATIONS EASY, REGULAR. POX 96% VIA RA. ENCOURAGED PATIENT TO ELEVATE BLLE DUE TO SWELLING. ASSISTED PATIENT BACK INTO BED. IVF MAINTAINED PER ORDER. WILL CONTINUE TO MONITOR. PT DENIES ANY PAIN/DISCOMFORT AT THIS TIME. CALL LIGHT WITHIN REACH.
[2020-04-12 12:00] VITALS: BP 107/52
--- NOTE | 2020-04-12 13:56 | NUR ---
IN TO SEE PATIENT.
[2020-04-12 16:00] VITALS: BP 114/51
[2020-04-12 20:00] VITALS: BP 127/61
--- NOTE | 2020-04-12 20:15 | NUR ---
DR BUCHANAN NOTIFIED OF UPDATED MED REC.
--- NOTE | 2020-04-12 20:40 | NUR ---
Patient resting quietly with no c/o discomfort. Respirations easy and regular. HR irregular on assessment, patient has a history of afib. Left leg edema > right. Patient has a large bulging hernia on abdomen that is not new. No complaints of pain on urination on assessment. Bed locked in lowest position, call light in reach. DELON SANCHEZ
--- NOTE | 2020-04-12 23:43 | NUR ---
24 HOUR CHART CHECK COMPLETE.
[2020-04-13] VITALS: BP 140/71
[2020-04-13 06:39] LABS: CHLORIDE 110 mmol/L (98-107); CREATININE 0.99 mg/dL (0.55-1.02); POTASSIUM 4.1 mmol/L (3.5-5.1); SODIUM 143 mmol/L (136-145)
[2020-04-13 06:41] LABS: BUN 20 mg/dl (7-24)
--- NOTE | 2020-04-13 07:00 | NUR ---
Arrived on shift, report received from offgoing nurse, assumed care of patient, introduced self to patient, bed in low position, wheel locks wngaged, side rails up x 2 for turning and repositioning, bed alarm decision support analyst light within reach. no needs voiced at this time. white board updated.
[2020-04-13 08:00] VITALS: BP 136/61
--- NOTE | 2020-04-13 09:00 | NUR ---
Fur Blowing Machine Attendant in to talk to patient. Patient states lives at home alone with her 5 children checking in on her and her 1 son living next door. There are 0 steps in the home. Physician: Dr. Corey Stapleton [facility] Home health services: [facility] on Thursday and for 4 hours each day Patient's level of ADLs: MINIMAL ASSIST Patient has working utilities: yes DME: walker, nebulizer Follow-up physician's appointment after d/c: she prefers to make her own follow up appt after discharge Does patient want to access PORTAL?: no Discharge plan discussed with patient and 2 sons and a daughter who are at the bedside. She lives at home alone with her family checking in on her and her 1 son living right next door. She is independent in her ADLs and ambulates with a walker while inside the house. When ambulating outside the house she holds onto the person with her. Discussed home health care services and she states she currently has [facility] for 4 hours on Thursday and . Her meals are no longer delivered as she cancelled them due to not liking them. She states her neighbor gets meals delivered and they are hot. When asked if she knew the name of the company she did not. Explained she needs to get in touch with her neighbor if that is the meals she wants and she verbalized an understanding. When medically stable she will be discharged to home with the resumption of her [facility]. She states her son will provide transportation on discharge. FARIDA HORTON
--- NOTE | 2020-04-13 09:50 | NUR ---
Shift chart check completed.
[2020-04-13 12:00] VITALS: BP 106/48
[2020-04-13 16:00] VITALS: BP 117/66
[2020-04-13 20:00] VITALS: BP 133/74
--- NOTE | 2020-04-13 20:30 | NUR ---
Patient resting quietly with no c/o discomfort. Respirations easy and regular. Vital signs stable. No overt distress. DELON SANCHEZ
[2020-04-14] VITALS: BP 117/58
--- NOTE | 2020-04-14 00:21 | NUR ---
24 hour chart check complete.
[2020-04-14 06:09] LABS: BASO % 0.4 % (0.0-1.0); EOS # 0.4 10*3/uL (0.0-0.4); EOS % 3.9 % (1.0-4.0); HEMATOCRIT 34.6 % (37.0-47.0); LYMPH # 1.6 10*3/uL (1.3-4.4); LYMPH % 17.7 % (27.0-41.0); MEAN CELL VOLUME 89.6 fl (81.0-99.0); MEAN CORPUSCULAR HGB 27.5 pg (27.0-31.0); MEAN CORPUSCULAR HGB CONC 30.6 g/dl (33.0-37.0); MONO # 1.1 10*3/uL (0.1-1.0); MONO % 11.8 % (3.0-9.0); NEUT % 65.8 % (47.0-73.0); PLATELET COUNT AUTOMATED 335 10*3/uL (130-400); RED BLOOD COUNT 3.86 10*6/uL (4.10-5.10); RED CELL DISTRI WIDTH 17.2 % (0-14.5); WHITE BLOOD COUNT 9.1 10*3/uL (4.8-10.8)
[2020-04-14 06:13] LABS: BUN 16 mg/dl (7-24); CHLORIDE 111 mmol/L (98-107); CREATININE 0.92 mg/dL (0.55-1.02); POTASSIUM 3.7 mmol/L (3.5-5.1); SODIUM 143 mmol/L (136-145)
[2020-04-14 08:00] VITALS: BP 128/68
--- NOTE | 2020-04-14 08:30 | NUR ---
0800 AM ASSESSMENT COMPLETED. PT DENIES ALL C/O AT THIS TIME. BED IN LOW LOCKED POSITION. CALL LIGHT WITHIN REACH. WILL CONTINUE TO MONITOR.
--- NOTE | 2020-04-14 08:30 | NUR ---
0800 ASSESSMENT COMPLETED. PT DENIES C/O AT THIS TIME. AWAITNG SURGERY. BED IN LOW LOCKED POSITION, CALL LIGHT WITHIN REACH. WILL MONITOR.
[2020-04-14 12:00] VITALS: BP 115/63
--- NOTE | 2020-04-14 14:30 | NUR ---
PT RESTING IN BED. RESP. EASY AND REGULAR ON RA. PT DENIES C/O AT PRESENT TIME. CALL LIGHT WITHIN REACH. WILL MONITOR.
[2020-04-14 16:00] VITALS: BP 121/63
[2020-04-14 16:04] LABS: BILIRUBIN NEGATIVE (NEGATIVE); BLOOD NEGATIVE (NEGATIVE); CLARITY SL CLOUDY (CLEAR); COLOR YELLOW (YELLOW); GLUCOSE NEGATIVE (NEGATIVE); KETONE NEGATIVE (NEGATIVE); LEUKO ESTERASE NEGATIVE (NEGATIVE); NITRITE NEGATIVE (NEGATIVE); UROBILINOGEN 0.2 E.U./dl (0.2-1.0)
[2020-04-14 16:31] LABS: BACTERIA TRACE; RBC 0-2 rbc/hpf (0-2); WBC 21-30 wbc/hpf (0-5)
--- NOTE | 2020-04-14 19:45 | NUR ---
Patient resting quietly with no c/o discomfort. Respirations easy and regular, room air. Patient has no new complaints. Bed locked and in the lowest position, call light in reach. Patient requesting a sleeping pill, will administer with night meds. DELON SANCHEZ
[2020-04-14 20:00] VITALS: BP 123/55
--- NOTE | 2020-04-14 21:31 | NUR ---
RESTORIAL ADMINISTERED FOR PT C/O INSOMNIA.
[2020-04-15] VITALS: BP 129/56
[2020-04-15 05:57] LABS: BASO % 0.4 % (0.0-1.0); EOS # 0.3 10*3/uL (0.0-0.4); EOS % 3.7 % (1.0-4.0); HEMATOCRIT 35.1 % (37.0-47.0); LYMPH # 1.7 10*3/uL (1.3-4.4); MEAN CORPUSCULAR HGB 27.2 pg (27.0-31.0); MEAN CORPUSCULAR HGB CONC 30.2 g/dl (33.0-37.0); MEAN PLATELET VOLUME 9.9 fl (9.6-12.3); MONO % 11.1 % (3.0-9.0); NEUT % 66.1 % (47.0-73.0); PLATELET COUNT AUTOMATED 317 10*3/uL (130-400); RED CELL DISTRI WIDTH 17.2 % (0-14.5); WHITE BLOOD COUNT 9.2 10*3/uL (4.8-10.8)
[2020-04-15 08:00] VITALS: BP 110/50
--- NOTE | 2020-04-15 08:00 | NUR ---
PT SITTING UP IN CHAIR BESIDE BED. ALERT ORIENTED AND PLEASANT WITH NO COMPLAINTS VOICED AT THIS TIME. RESPIRATIONS EASY AND UNLABORED ON ROOM AIR. SAFETY MEASURES IN PLACE. CALL LIGHT IN REACH.
[2020-04-15] MEDS ORDERED: MACROBID100 M1 PO (12:14)
--- NOTE | 2020-04-15 12:48 | NUR ---
Discharge instructions reviewed with patient/family. Patient receptive and verbalizes understanding. Follow-up care arranged. Written instructions given to patient/family. JENIFER HATCH
== END 2020-04-15 12:48 | disposition home or self-care (01) | DRG 689 ==
LOC: ED 20:12 → 4E 04-12 00:51 → EDHOLD 04-12 00:51 → 4E 04-12 01:07
PROVIDERS: Emergency Medicine; Internal Medicine; ADMIT Internal Medicine
DX: N30.00 Acute cystitis without hematuria (principal); N17.0 Acute kidney failure with tubular necrosis; I50.32 Chronic diastolic (congestive) heart failure; E86.0 Dehydration; D72.829 Elevated white blood cell count, unspecified; R00.1 Bradycardia, unspecified; E87.8 Other disorders of electrolyte and fluid balance, not elsewhere classified; K43.9 Ventral hernia without obstruction or gangrene; R79.82 Elevated C-reactive protein (CRP); E03.9 Hypothyroidism, unspecified; E66.01 Morbid (severe) obesity due to excess calories; I48.91 Unspecified atrial fibrillation; E11.65 Type 2 diabetes mellitus with hyperglycemia; I11.0 Hypertensive heart disease with heart failure; D64.9 Anemia, unspecified; Z91.041 Radiographic dye allergy status; Z91.048 Other nonmedicinal substance allergy status; Z90.711 Acquired absence of uterus with remaining cervical stump; Z83.3 Family history of diabetes mellitus; Z82.49 Family history of ischemic heart disease and other diseases of the circulatory system; Z68.33 Body mass index [BMI] 33.0-33.9, adult

== ENCOUNTER 2020-05-04 14:15 | Emergency (ER) | payer OTHER ==
[~2020-05-04] VITALS: Ht 154.9 cm; Wt 81.6 kg
[~2020-05-04 14:15] MED LIST changes: +ALENDRONATE SOD70 M1 PO; +Percocet 325 MG1 TAB PO
[2020-05-04 14:22] VITALS: BP 111/57
[2020-05-04 15:18] LABS: BASO # 0.1 10*3/uL (0.0-0.1); BASO % 0.6 % (0.0-1.0); EOS # 0.4 10*3/uL (0.0-0.4); EOS % 4.5 % (1.0-4.0); HEMATOCRIT 35.9 % (37.0-47.0); LYMPH # 1.3 10*3/uL (1.3-4.4); LYMPH % 14.8 % (27.0-41.0); MEAN CELL VOLUME 90.9 fl (81.0-99.0); MEAN CORPUSCULAR HGB 27.3 pg (27.0-31.0); MEAN CORPUSCULAR HGB CONC 30.1 g/dl (33.0-37.0); MEAN PLATELET VOLUME 9.3 fl (9.6-12.3); MONO % 10.7 % (3.0-9.0); NEUT # 6.2 10*3/uL (2.3-7.9); PLATELET COUNT AUTOMATED 296 10*3/uL (130-400); RED BLOOD COUNT 3.95 10*6/uL (4.10-5.10); RED CELL DISTRI WIDTH 17.2 % (0-14.5); WHITE BLOOD COUNT 8.9 10*3/uL (4.8-10.8)
[2020-05-04 15:35] LABS: ALBUMIN 3.1 gm/dl (3.1-4.5); CREATININE 1.52 mg/dL (0.55-1.02); POTASSIUM 3.8 mmol/L (3.5-5.1)
== END 2020-05-04 17:31 | disposition home or self-care (01) ==
LOC: ED 14:15
PROVIDERS: Internal Medicine
DX: G58.9 Mononeuropathy, unspecified (principal); N17.0 Acute kidney failure with tubular necrosis; E86.0 Dehydration; K21.9 Gastro-esophageal reflux disease without esophagitis; M19.90 Unspecified osteoarthritis, unspecified site; E03.9 Hypothyroidism, unspecified; E78.00 Pure hypercholesterolemia, unspecified; E11.9 Type 2 diabetes mellitus without complications; I11.0 Hypertensive heart disease with heart failure; I50.9 Heart failure, unspecified; Z79.899 Other long term (current) drug therapy; Z91.041 Radiographic dye allergy status

== ENCOUNTER → 2020-05-31 | Outpatient (CLI) | payer OTHER | END | disposition home or self-care (01) | LOC: US 15:23 | DX: M25.572 Pain in left ankle and joints of left foot (principal); R60.0 Localized edema ==

== ENCOUNTER 2020-08-11 17:20 | Emergency (ER) | payer OTHER ==
[~2020-08-11] VITALS: Ht 154.9 cm; Wt 78.5 kg
[2020-08-11 17:29] VITALS: BP 122/59
== END 2020-08-11 20:45 | disposition home or self-care (01) ==
LOC: ED 17:20
DX: S39.012A Strain of muscle, fascia and tendon of lower back, initial encounter (principal); I10 Essential (primary) hypertension; K21.9 Gastro-esophageal reflux disease without esophagitis; M19.90 Unspecified osteoarthritis, unspecified site; I11.0 Hypertensive heart disease with heart failure; I50.9 Heart failure, unspecified; E03.9 Hypothyroidism, unspecified; I48.91 Unspecified atrial fibrillation; E11.9 Type 2 diabetes mellitus without complications; Z79.899 Other long term (current) drug therapy; Z91.041 Radiographic dye allergy status; Z79.2 Long term (current) use of antibiotics; Z90.710 Acquired absence of both cervix and uterus; X58.XXXA Exposure to other specified factors, initial encounter; Y93.89 Activity, other specified; Y92.89 Other specified places as the place of occurrence of the external cause; Y99.8 Other external cause status

== ENCOUNTER → 2020-08-27 | Outpatient (CLI) | payer OTHER | END | disposition home or self-care (01) | LOC: US 14:16 | PROVIDERS: ATTEND Internal Medicine Nephrology | DX: N83.312 Acquired atrophy of left ovary (principal); N83.311 Acquired atrophy of right ovary; N94.9 Unspecified condition associated with female genital organs and menstrual cycle; Z90.710 Acquired absence of both cervix and uterus ==

== ENCOUNTER → 2020-11-27 | Outpatient (CLI) | payer OTHER | END | disposition home or self-care (01) | LOC: MAMMO 16:48 | PROVIDERS: ATTEND Internal Medicine | DX: Z12.31 Encounter for screening mammogram for malignant neoplasm of breast (principal); N64.89 Other specified disorders of breast ==

== ENCOUNTER → 2020-12-04 | Outpatient (CLI) | payer OTHER ==
[~2020-12-04] MED LIST changes: +DOXYCYCLINE MO100 M1 PO; +XARELTO20 M1 PO
== END | disposition home or self-care (01) ==
LOC: COVID19 10:52
PROVIDERS: ATTEND Internal Medicine Nephrology
DX: U07.1 COVID-19 (principal)

== ENCOUNTER 2020-12-07 16:20 | Inpatient (IN) | payer OTHER ==
[~2020-12-07] VITALS: Ht 144.8 cm; Wt 75.4 kg
[~2020-12-07 16:20] MED LIST changes: -DOXYCYCLINE MO100 M1 PO; -XARELTO20 M1 PO
[2020-12-07 17:05] VITALS: BP 121/71
[2020-12-07 17:34] LABS: BASO % 0.2 % (0.0-1.0); HEMATOCRIT 35.3 % (37.0-47.0); LYMPH # 0.9 10*3/uL (1.3-4.4); LYMPH % 17.9 % (27.0-41.0); MEAN CELL VOLUME 88.7 fl (81.0-99.0); MEAN CORPUSCULAR HGB 27.1 pg (27.0-31.0); MEAN CORPUSCULAR HGB CONC 30.6 g/dl (33.0-37.0); MEAN PLATELET VOLUME 9.2 fl (9.6-12.3); MONO # 0.7 10*3/uL (0.1-1.0); NEUT # 3.6 10*3/uL (2.3-7.9); NEUT % 68.1 % (47.0-73.0); PLATELET COUNT AUTOMATED 280 10*3/uL (130-400); RED BLOOD COUNT 3.98 10*6/uL (4.10-5.10); RED CELL DISTRI WIDTH 15.1 % (0-14.5); WHITE BLOOD COUNT 5.3 10*3/uL (4.8-10.8)
[2020-12-07 17:50] LABS: ALBUMIN 2.9 gm/dl (3.1-4.5); CREATININE 1.23 mg/dL (0.55-1.02); POTASSIUM 3.9 mmol/L (3.5-5.1); TOTAL PROTEIN 7.7 gm/dL (6.4-8.2)
[2020-12-07 19:19] VITALS: BP 145/82
[2020-12-07 21:36] VITALS: BP 120/64
[2020-12-07 22:15] VITALS: BP 120/64
[2020-12-08] VITALS: BP 117/60
[2020-12-08 06:11] LABS: BASO % 0.2 % (0.0-1.0); HEMATOCRIT 35.7 % (37.0-47.0); LYMPH # 0.7 10*3/uL (1.3-4.4); LYMPH % 16.6 % (27.0-41.0); MEAN CELL VOLUME 91.3 fl (81.0-99.0); MEAN CORPUSCULAR HGB 27.6 pg (27.0-31.0); MEAN CORPUSCULAR HGB CONC 30.3 g/dl (33.0-37.0); MEAN PLATELET VOLUME 9.5 fl (9.6-12.3); MONO # 0.3 10*3/uL (0.1-1.0); MONO % 6.3 % (3.0-9.0); NEUT # 3.2 10*3/uL (2.3-7.9); NEUT % 75.9 % (47.0-73.0); PLATELET COUNT AUTOMATED 270 10*3/uL (130-400); RED BLOOD COUNT 3.91 10*6/uL (4.10-5.10); RED CELL DISTRI WIDTH 15.3 % (0-14.5); WHITE BLOOD COUNT 4.2 10*3/uL (4.8-10.8)
[2020-12-08 06:44] LABS: ALBUMIN 2.6 gm/dl (3.1-4.5); POTASSIUM 4.2 mmol/L (3.5-5.1)
[2020-12-08 06:46] LABS: ACT PARTIAL THROMBO TIME 27.7 SECONDS (20.0-32.1)
[2020-12-08 06:53] LABS: CREATININE 1.11 mg/dL (0.55-1.02); FREE T4 0.88 ng/dl (0.76-1.46); THYROID STIM HORMONE (HS) 1.36 uIU/ml (0.358-4.75); TOTAL PROTEIN 7.3 gm/dL (6.4-8.2)
[2020-12-08 07:12] LABS: VITAMIN D, 25-HYDROXY 57.8 ng/mL (30-100)
[2020-12-08 07:51] LABS: ARTERIAL BLOOD GAS PH 7.37 (7.35-7.45)
[2020-12-08 08:00] VITALS: BP 123/58; BP 130/68
[2020-12-08 12:00] VITALS: BP 134/36
[2020-12-08 16:00] VITALS: BP 129/61
[2020-12-08 20:00] VITALS: BP 121/71
[2020-12-09] VITALS: BP 102/83
[2020-12-09 02:02] LABS: BILIRUBIN Negative (Negative); BLOOD Negative (Negative); CLARITY Cloudy (Clear); COLOR Dark Yellow (Yellow); GLUCOSE Negative (Negative); KETONE Negative (Negative); LEUKO ESTERASE 1+ (Negative); NITRITE Positive (Negative); SPECIFIC GRAVITY 1.025 (1.001-1.030); UROBILINOGEN 0.2 E.U./dl (0.0-1.0)
[2020-12-09 02:37] LABS: BACTERIA 3+; WBC 21-30 wbc/hpf (0-5)
[2020-12-09 04:00] VITALS: BP 117/60
[2020-12-09 04:44] LABS: CREATININE 1.26 mg/dL (0.55-1.02); POTASSIUM 3.6 mmol/L (3.5-5.1)
[2020-12-09 06:18] LABS: BASO % 0.1 % (0.0-1.0); LYMPH # 0.8 10*3/uL (1.3-4.4); LYMPH % 7.9 % (27.0-41.0); MEAN CELL VOLUME 89.7 fl (81.0-99.0); MEAN CORPUSCULAR HGB 27.7 pg (27.0-31.0); MEAN CORPUSCULAR HGB CONC 30.9 g/dl (33.0-37.0); MEAN PLATELET VOLUME 10.2 fl (9.6-12.3); MONO # 0.6 10*3/uL (0.1-1.0); MONO % 5.8 % (3.0-9.0); NEUT # 8.8 10*3/uL (2.3-7.9); NEUT % 85.5 % (47.0-73.0); PLATELET COUNT AUTOMATED 297 10*3/uL (130-400); RED BLOOD COUNT 3.68 10*6/uL (4.10-5.10); RED CELL DISTRI WIDTH 15.2 % (0-14.5); WHITE BLOOD COUNT 10.3 10*3/uL (4.8-10.8)
[2020-12-09 08:00] VITALS: BP 130/69
[2020-12-09 10:16] LABS: ABG BASE EXCESS -0.5 mmol/L (-2.0-2.0); ARTERIAL BLOOD GAS PH 7.418 (7.35-7.45)
[2020-12-09 12:00] VITALS: BP 143/73
[2020-12-09 16:00] VITALS: BP 101/56
[2020-12-09 20:00] VITALS: BP 110/59
[2020-12-10] VITALS: BP 130/75
[2020-12-10 07:05] LABS: BASO % 0.1 % (0.0-1.0); LYMPH # 0.9 10*3/uL (1.3-4.4); LYMPH % 13.3 % (27.0-41.0); MEAN CELL VOLUME 90.9 fl (81.0-99.0); MEAN CORPUSCULAR HGB 27.5 pg (27.0-31.0); MEAN CORPUSCULAR HGB CONC 30.3 g/dl (33.0-37.0); MEAN PLATELET VOLUME 10.3 fl (9.6-12.3); MONO # 0.7 10*3/uL (0.1-1.0); MONO % 10.1 % (3.0-9.0); NEUT # 5.4 10*3/uL (2.3-7.9); NEUT % 76.1 % (47.0-73.0); PLATELET COUNT AUTOMATED 284 10*3/uL (130-400); RED BLOOD COUNT 3.85 10*6/uL (4.10-5.10); RED CELL DISTRI WIDTH 15.4 % (0-14.5); WHITE BLOOD COUNT 7.1 10*3/uL (4.8-10.8)
[2020-12-10 07:29] LABS: CHLORIDE 107 mmol/L (98-107); POTASSIUM 3.8 mmol/L (3.5-5.1); SODIUM 142 mmol/L (136-145)
[2020-12-10 07:40] LABS: ALBUMIN 2.6 gm/dl (3.1-4.5); ALKALINE PHOSPHATASE 36 U/L (45-117); BUN 31 mg/dl (7-24); CREATININE 1.03 mg/dL (0.55-1.02); LDH 328 U/L (84-246); SGOT/AST 27 IU/L (3-35); SGPT/ALT 11 U/L (12-78); TOTAL PROTEIN 6.9 gm/dL (6.4-8.2)
[2020-12-10 07:57] LABS: ABG BASE EXCESS -0.2 mmol/L (-2.0-2.0); ARTERIAL BLOOD GAS PH 7.395 (7.35-7.45)
[2020-12-10 08:00] VITALS: BP 125/49
[2020-12-10 08:04] LABS: CPK 282 U/L (26-192)
[2020-12-10 12:00] VITALS: BP 124/56
[2020-12-10 16:00] VITALS: BP 131/55
[2020-12-10 20:00] VITALS: BP 121/52
[2020-12-11] VITALS: BP 125/40
[2020-12-11 07:05] LABS: BASO % 0.1 % (0.0-1.0); HEMATOCRIT 36.4 % (37.0-47.0); LYMPH # 1.1 10*3/uL (1.3-4.4); LYMPH % 12.3 % (27.0-41.0); MEAN CELL VOLUME 90.5 fl (81.0-99.0); MEAN CORPUSCULAR HGB 27.9 pg (27.0-31.0); MEAN CORPUSCULAR HGB CONC 30.8 g/dl (33.0-37.0); MEAN PLATELET VOLUME 10.1 fl (9.6-12.3); MONO # 0.7 10*3/uL (0.1-1.0); MONO % 8.3 % (3.0-9.0); NEUT % 78.6 % (47.0-73.0); PLATELET COUNT AUTOMATED 306 10*3/uL (130-400); RED BLOOD COUNT 4.02 10*6/uL (4.10-5.10); RED CELL DISTRI WIDTH 15.2 % (0-14.5); WHITE BLOOD COUNT 8.9 10*3/uL (4.8-10.8)
[2020-12-11 07:12] LABS: ALBUMIN 2.6 gm/dl (3.1-4.5); ALKALINE PHOSPHATASE 36 U/L (45-117); BUN 31 mg/dl (7-24); CHLORIDE 109 mmol/L (98-107); CREATININE 0.95 mg/dL (0.55-1.02); LDH 368 U/L (84-246); POTASSIUM 3.7 mmol/L (3.5-5.1); SGOT/AST 26 IU/L (3-35); SGPT/ALT 15 U/L (12-78); SODIUM 141 mmol/L (136-145); TOTAL PROTEIN 7.1 gm/dL (6.4-8.2)
[2020-12-11 07:31] LABS: CPK 125 U/L (26-192)
[2020-12-11 08:00] VITALS: BP 140/76
[2020-12-11 08:15] LABS: ABG BASE EXCESS 0.4 mmol/L (-2.0-2.0); ARTERIAL BLOOD GAS PH 7.435 (7.35-7.45)
[2020-12-11 12:00] VITALS: BP 117/43
[2020-12-11 16:00] VITALS: BP 124/64
[2020-12-11 20:00] VITALS: BP 143/48
[2020-12-12] VITALS: BP 135/60
[2020-12-12 06:27] LABS: BASO % 0.1 % (0.0-1.0); EOS % 0.1 % (1.0-4.0); HEMATOCRIT 36.3 % (37.0-47.0); LYMPH % 10.6 % (27.0-41.0); MEAN CELL VOLUME 89.9 fl (81.0-99.0); MEAN PLATELET VOLUME 10.2 fl (9.6-12.3); MONO # 0.7 10*3/uL (0.1-1.0); MONO % 7.6 % (3.0-9.0); NEUT # 7.2 10*3/uL (2.3-7.9); NEUT % 80.8 % (47.0-73.0); PLATELET COUNT AUTOMATED 314 10*3/uL (130-400); RED BLOOD COUNT 4.04 10*6/uL (4.10-5.10); RED CELL DISTRI WIDTH 15.3 % (0-14.5)
[2020-12-12 06:51] LABS: ALBUMIN 2.5 gm/dl (3.1-4.5); ALKALINE PHOSPHATASE 35 U/L (45-117); BUN 25 mg/dl (7-24); CHLORIDE 113 mmol/L (98-107); CREATININE 0.92 mg/dL (0.55-1.02); SGOT/AST 22 IU/L (3-35); SGPT/ALT 14 U/L (12-78); SODIUM 144 mmol/L (136-145)
[2020-12-12 08:00] VITALS: BP 108/56
[2020-12-12 08:45] LABS: ABG BASE EXCESS 2.8 mmol/L (-2.0-2.0); ARTERIAL BLOOD GAS PH 7.449 (7.35-7.45)
[2020-12-12 12:00] VITALS: BP 131/51
[2020-12-12 16:00] VITALS: BP 108/57
[2020-12-12 20:00] VITALS: BP 125/46
[2020-12-13 07:28] LABS: BASO % 0.2 % (0.0-1.0); EOS % 0.2 % (1.0-4.0); HEMATOCRIT 35.2 % (37.0-47.0); LYMPH # 0.9 10*3/uL (1.3-4.4); MEAN CELL VOLUME 89.6 fl (81.0-99.0); MEAN CORPUSCULAR HGB 27.2 pg (27.0-31.0); MEAN CORPUSCULAR HGB CONC 30.4 g/dl (33.0-37.0); MEAN PLATELET VOLUME 10.7 fl (9.6-12.3); MONO # 0.8 10*3/uL (0.1-1.0); MONO % 9.3 % (3.0-9.0); NEUT # 6.7 10*3/uL (2.3-7.9); NEUT % 78.5 % (47.0-73.0); PLATELET COUNT AUTOMATED 310 10*3/uL (130-400); RED BLOOD COUNT 3.93 10*6/uL (4.10-5.10); RED CELL DISTRI WIDTH 15.2 % (0-14.5); WHITE BLOOD COUNT 8.5 10*3/uL (4.8-10.8)
[2020-12-13 07:49] LABS: CHLORIDE 111 mmol/L (98-107); SODIUM 144 mmol/L (136-145)
[2020-12-13 07:59] LABS: ALBUMIN 2.5 gm/dl (3.1-4.5); ALKALINE PHOSPHATASE 36 U/L (45-117); BUN 23 mg/dl (7-24); LDH 375 U/L (84-246); SGOT/AST 19 IU/L (3-35); SGPT/ALT 15 U/L (12-78); TOTAL PROTEIN 6.8 gm/dL (6.4-8.2)
[2020-12-13 08:00] VITALS: BP 128/44
[2020-12-13 08:08] LABS: ABG BASE EXCESS 2.5 mmol/L (-2.0-2.0); ARTERIAL BLOOD GAS PH 7.461 (7.35-7.45)
[2020-12-13 12:00] VITALS: BP 105/50
[2020-12-13 16:00] VITALS: BP 112/72
[2020-12-13 16:08] LABS: ABG BASE EXCESS 2.2 mmol/L (-2.0-2.0); ARTERIAL BLOOD GAS PH 7.441 (7.35-7.45)
[2020-12-13 20:00] VITALS: BP 124/84
[2020-12-14] VITALS (8 sets, daily range): BP systolic 70–125; BP diastolic 38–68
[2020-12-14 06:42] LABS: HEMATOCRIT 37.8 % (37.0-47.0); MEAN CELL VOLUME 91.7 fl (81.0-99.0); MEAN CORPUSCULAR HGB 26.9 pg (27.0-31.0); MEAN CORPUSCULAR HGB CONC 29.4 g/dl (33.0-37.0); MEAN PLATELET VOLUME 10.6 fl (9.6-12.3); PLATELET COUNT AUTOMATED 313 10*3/uL (130-400); RED BLOOD COUNT 4.12 10*6/uL (4.10-5.10); RED CELL DISTRI WIDTH 15.4 % (0-14.5)
[2020-12-14 06:57] LABS: ALBUMIN 2.4 gm/dl (3.1-4.5); ALKALINE PHOSPHATASE 36 U/L (45-117); BUN 27 mg/dl (7-24); CHLORIDE 111 mmol/L (98-107); LDH 365 U/L (84-246); POTASSIUM 4.6 mmol/L (3.5-5.1); SGOT/AST 18 IU/L (3-35); SGPT/ALT 12 U/L (12-78); SODIUM 141 mmol/L (136-145)
[2020-12-14 07:49] LABS: ABG BASE EXCESS 1.8 mmol/L (-2.0-2.0); ARTERIAL BLOOD GAS PH 7.419 (7.35-7.45)
[2020-12-14 08:25] LABS: ATYPICAL LYMPHS 1 % (0-0); PLATELET SUFFICIENCY NORMAL (NORMAL); TOTAL CELLS COUNTED 100 #CELLS
[2020-12-14] MEDS ORDERED: LASIX20 MG PO (11:29)
[2020-12-14] MEDS ORDERED: XARELTO20 M1 PO (11:34)
[2020-12-14 21:23] LABS: ABG BASE EXCESS -0.2 mmol/L (-2.0-2.0); ARTERIAL BLOOD GAS PH 7.426 (7.35-7.45)
[2020-12-15] VITALS (7 sets, daily range): BP systolic 77–138; BP diastolic 35–64
[2020-12-15 07:35] LABS: HEMATOCRIT 37.9 % (37.0-47.0); MEAN CELL VOLUME 92.7 fl (81.0-99.0); MEAN CORPUSCULAR HGB 27.1 pg (27.0-31.0); MEAN CORPUSCULAR HGB CONC 29.3 g/dl (33.0-37.0); MEAN PLATELET VOLUME 10.8 fl (9.6-12.3); PLATELET COUNT AUTOMATED 311 10*3/uL (130-400); RED BLOOD COUNT 4.09 10*6/uL (4.10-5.10); RED CELL DISTRI WIDTH 15.7 % (0-14.5); WHITE BLOOD COUNT 10.4 10*3/uL (4.8-10.8)
[2020-12-15 07:51] LABS: ALBUMIN 2.3 gm/dl (3.1-4.5); CREATININE 1.14 mg/dL (0.55-1.02); POTASSIUM 4.2 mmol/L (3.5-5.1); TOTAL PROTEIN 6.7 gm/dL (6.4-8.2)
[2020-12-15 08:08] LABS: PLATELET SUFFICIENCY NORMAL (NORMAL); TOTAL CELLS COUNTED 100 #CELLS
[2020-12-15 08:09] LABS: BURR CELLS FEW
[2020-12-16] VITALS: BP 117/60
[2020-12-16 06:05] LABS: ALBUMIN 2.4 gm/dl (3.1-4.5); CREATININE 1.13 mg/dL (0.55-1.02); POTASSIUM 4.4 mmol/L (3.5-5.1); TOTAL PROTEIN 6.9 gm/dL (6.4-8.2)
[2020-12-16 06:27] LABS: BASO % 0.1 % (0.0-1.0); HEMATOCRIT 39.7 % (37.0-47.0); LYMPH % 7.9 % (27.0-41.0); MEAN CORPUSCULAR HGB 27.5 pg (27.0-31.0); MEAN CORPUSCULAR HGB CONC 30.7 g/dl (33.0-37.0); MEAN PLATELET VOLUME 10.8 fl (9.6-12.3); MONO # 0.9 10*3/uL (0.1-1.0); NEUT # 10.2 10*3/uL (2.3-7.9); NEUT % 83.6 % (47.0-73.0); PLATELET COUNT AUTOMATED 328 10*3/uL (130-400); RED BLOOD COUNT 4.43 10*6/uL (4.10-5.10); RED CELL DISTRI WIDTH 15.7 % (0-14.5); WHITE BLOOD COUNT 12.1 10*3/uL (4.8-10.8)
[2020-12-16 06:28] LABS: MEAN CELL VOLUME 89.6 fl (81.0-99.0)
[2020-12-16 08:00] VITALS: BP 132/68
[2020-12-16 11:17] LABS: ABG BASE EXCESS 1.8 mmol/L (-2.0-2.0); ARTERIAL BLOOD GAS PH 7.48 (7.35-7.45)
[2020-12-16 12:00] VITALS: BP 114/80
[2020-12-16 16:00] VITALS: BP 126/86
[2020-12-16 20:00] VITALS: BP 115/60
[2020-12-17] VITALS: BP 141/53
[2020-12-17 06:43] LABS: ALBUMIN 2.3 gm/dl (3.1-4.5); ALKALINE PHOSPHATASE 34 U/L (45-117); BUN 38 mg/dl (7-24); CHLORIDE 114 mmol/L (98-107); CREATININE 1.03 mg/dL (0.55-1.02); LDH 390 U/L (84-246); POTASSIUM 4.4 mmol/L (3.5-5.1); SGOT/AST 25 IU/L (3-35); SGPT/ALT 16 U/L (12-78); SODIUM 144 mmol/L (136-145); TOTAL PROTEIN 6.5 gm/dL (6.4-8.2)
[2020-12-17 07:02] LABS: BASO % 0.1 % (0.0-1.0); HEMATOCRIT 37.7 % (37.0-47.0); LYMPH % 7.1 % (27.0-41.0); MEAN CELL VOLUME 88.3 fl (81.0-99.0); MEAN CORPUSCULAR HGB 27.4 pg (27.0-31.0); MEAN PLATELET VOLUME 10.7 fl (9.6-12.3); MONO # 1.1 10*3/uL (0.1-1.0); MONO % 8.3 % (3.0-9.0); NEUT # 11.3 10*3/uL (2.3-7.9); NEUT % 82.8 % (47.0-73.0); PLATELET COUNT AUTOMATED 309 10*3/uL (130-400); RED BLOOD COUNT 4.27 10*6/uL (4.10-5.10); RED CELL DISTRI WIDTH 15.7 % (0-14.5); WHITE BLOOD COUNT 13.7 10*3/uL (4.8-10.8)
[2020-12-17 08:00] VITALS: BP 147/71
[2020-12-17 12:00] VITALS: BP 112/80
[2020-12-17 16:00] VITALS: BP 97/62
[2020-12-17 20:00] VITALS: BP 116/67
[2020-12-18] VITALS: BP 116/67
[2020-12-18 05:59] LABS: BASO % 0.1 % (0.0-1.0); EOS % 0.1 % (1.0-4.0); HEMATOCRIT 38.4 % (37.0-47.0); LYMPH % 6.8 % (27.0-41.0); MEAN CELL VOLUME 89.1 fl (81.0-99.0); MEAN CORPUSCULAR HGB 27.1 pg (27.0-31.0); MEAN CORPUSCULAR HGB CONC 30.5 g/dl (33.0-37.0); MEAN PLATELET VOLUME 10.7 fl (9.6-12.3); MONO # 1.1 10*3/uL (0.1-1.0); NEUT % 84.6 % (47.0-73.0); PLATELET COUNT AUTOMATED 306 10*3/uL (130-400); RED BLOOD COUNT 4.31 10*6/uL (4.10-5.10); RED CELL DISTRI WIDTH 15.7 % (0-14.5); WHITE BLOOD COUNT 15.4 10*3/uL (4.8-10.8)
[2020-12-18 06:27] LABS: ALBUMIN 2.3 gm/dl (3.1-4.5); CREATININE 1.13 mg/dL (0.55-1.02); TOTAL PROTEIN 6.1 gm/dL (6.4-8.2)
[2020-12-18 08:00] VITALS: BP 125/59
[2020-12-18 16:00] VITALS: BP 138/72
[2020-12-18 20:00] VITALS: BP 102/77
[2020-12-19] VITALS: BP 171/75
[2020-12-19 04:30] VITALS: BP 135/80
[2020-12-19 06:00] LABS: ALBUMIN 2.3 gm/dl (3.1-4.5); CREATININE 1.16 mg/dL (0.55-1.02); POTASSIUM 4.5 mmol/L (3.5-5.1); TOTAL PROTEIN 6.5 gm/dL (6.4-8.2)
[2020-12-19 06:17] LABS: BASO % 0.1 % (0.0-1.0); HEMATOCRIT 37.9 % (37.0-47.0); LYMPH # 0.8 10*3/uL (1.3-4.4); LYMPH % 5.4 % (27.0-41.0); MEAN CELL VOLUME 90.7 fl (81.0-99.0); MEAN CORPUSCULAR HGB 27.8 pg (27.0-31.0); MEAN CORPUSCULAR HGB CONC 30.6 g/dl (33.0-37.0); MEAN PLATELET VOLUME 11.1 fl (9.6-12.3); MONO # 0.9 10*3/uL (0.1-1.0); MONO % 5.8 % (3.0-9.0); NEUT # 13.7 10*3/uL (2.3-7.9); NEUT % 87.8 % (47.0-73.0); PLATELET COUNT AUTOMATED 244 10*3/uL (130-400); RED BLOOD COUNT 4.18 10*6/uL (4.10-5.10); WHITE BLOOD COUNT 15.6 10*3/uL (4.8-10.8)
[2020-12-19 08:00] VITALS: BP 134/66
[2020-12-19 12:00] VITALS: BP 118/73
[2020-12-19 16:00] VITALS: BP 132/67
[2020-12-19 20:00] VITALS: BP 108/77
[2020-12-20] VITALS: BP 115/55
[2020-12-20 06:06] LABS: BASO % 0.1 % (0.0-1.0); EOS # 0.2 10*3/uL (0.0-0.4); EOS % 1.4 % (1.0-4.0); HEMATOCRIT 37.7 % (37.0-47.0); LYMPH # 0.8 10*3/uL (1.3-4.4); LYMPH % 5.1 % (27.0-41.0); MEAN CELL VOLUME 89.1 fl (81.0-99.0); MEAN CORPUSCULAR HGB 27.4 pg (27.0-31.0); MEAN CORPUSCULAR HGB CONC 30.8 g/dl (33.0-37.0); MEAN PLATELET VOLUME 11.1 fl (9.6-12.3); MONO % 6.2 % (3.0-9.0); NEUT # 13.3 10*3/uL (2.3-7.9); PLATELET COUNT AUTOMATED 223 10*3/uL (130-400); RED BLOOD COUNT 4.23 10*6/uL (4.10-5.10); RED CELL DISTRI WIDTH 15.9 % (0-14.5); WHITE BLOOD COUNT 15.4 10*3/uL (4.8-10.8)
[2020-12-20 06:27] LABS: CREATININE 1.12 mg/dL (0.55-1.02); POTASSIUM 4.4 mmol/L (3.5-5.1); TOTAL PROTEIN 6.2 gm/dL (6.4-8.2)
[2020-12-20 08:00] VITALS: BP 106/60
[2020-12-20 12:00] VITALS: BP 93/58
[2020-12-20] MEDS ORDERED: DOXYCYCLINE MO100 M1 PO (13:52)
[2020-12-20 16:00] VITALS: BP 119/45
== END 2020-12-20 20:23 | disposition other institution (70) | DRG 871 ==
LOC: ED 16:20 → 4E 20:50 → EDHOLD 20:50 → 4E 21:27
PROVIDERS: Hospitalist; Internal Medicine; Internal Medicine Critical Care Medicine; Nurse Practitioner Family; Social Worker Clinical; ADMIT Family Medicine; ATTEND Family Medicine
PROC: XW033E5 Introduction of Remdesivir Anti-infective into Peripheral Vein, Percutaneous Approach, New Technology Group 5 (ICD-10-PCS; principal; 2020-12-09)
PROC: 5A0935A Assistance with Respiratory Ventilation, Less than 24 Consecutive Hours, High Flow/Velocity Cannula (ICD-10-PCS; 2020-12-12)
PROC: 5A0945A Assistance with Respiratory Ventilation, 24-96 Consecutive Hours, High Flow/Velocity Cannula (ICD-10-PCS; 2020-12-12)
PROC: 5A0935A Assistance with Respiratory Ventilation, Less than 24 Consecutive Hours, High Flow/Velocity Cannula (ICD-10-PCS; 2020-12-14)
PROC: 5A09357 Assistance with Respiratory Ventilation, Less than 24 Consecutive Hours, Continuous Positive Airway Pressure (ICD-10-PCS; 2020-12-14)
PROC: 5A0935A Assistance with Respiratory Ventilation, Less than 24 Consecutive Hours, High Flow/Velocity Cannula (ICD-10-PCS; 2020-12-15)
PROC: 5A09357 Assistance with Respiratory Ventilation, Less than 24 Consecutive Hours, Continuous Positive Airway Pressure (ICD-10-PCS; 2020-12-15)
PROC: 5A0935A Assistance with Respiratory Ventilation, Less than 24 Consecutive Hours, High Flow/Velocity Cannula (ICD-10-PCS; 2020-12-16)
PROC: 5A0945A Assistance with Respiratory Ventilation, 24-96 Consecutive Hours, High Flow/Velocity Cannula (ICD-10-PCS; 2020-12-17)
PROC: 5A0945A Assistance with Respiratory Ventilation, 24-96 Consecutive Hours, High Flow/Velocity Cannula (ICD-10-PCS; 2020-12-18)
PROC: 5A09357 Assistance with Respiratory Ventilation, Less than 24 Consecutive Hours, Continuous Positive Airway Pressure (ICD-10-PCS; 2020-12-18)
PROC: 5A09357 Assistance with Respiratory Ventilation, Less than 24 Consecutive Hours, Continuous Positive Airway Pressure (ICD-10-PCS; 2020-12-19)
PROC: 5A0945A Assistance with Respiratory Ventilation, 24-96 Consecutive Hours, High Flow/Velocity Cannula (ICD-10-PCS; 2020-12-20)
DX: A41.9 Sepsis, unspecified organism (principal); U07.1 COVID-19; J12.82 Pneumonia due to coronavirus disease 2019; N17.0 Acute kidney failure with tubular necrosis; J96.01 Acute respiratory failure with hypoxia; E44.0 Moderate protein-calorie malnutrition; N39.0 Urinary tract infection, site not specified; D68.59 Other primary thrombophilia; D64.9 Anemia, unspecified; Z66 Do not resuscitate; Z51.5 Encounter for palliative care; E03.9 Hypothyroidism, unspecified; E86.0 Dehydration; E83.39 Other disorders of phosphorus metabolism; E87.8 Other disorders of electrolyte and fluid balance, not elsewhere classified; E11.65 Type 2 diabetes mellitus with hyperglycemia; E83.41 Hypermagnesemia; E66.9 Obesity, unspecified; I11.0 Hypertensive heart disease with heart failure; Z79.899 Other long term (current) drug therapy; I50.9 Heart failure, unspecified; B96.20 Unspecified Escherichia coli [E. coli] as the cause of diseases classified elsewhere; Z91.041 Radiographic dye allergy status; Z90.710 Acquired absence of both cervix and uterus; Z98.891 History of uterine scar from previous surgery; Z83.3 Family history of diabetes mellitus; Z79.1 Long term (current) use of non-steroidal anti-inflammatories (NSAID)

== ENCOUNTER 2020-12-23 00:50 | Inpatient (IN) | payer OTHER ==
[~2020-12-23] VITALS: Ht 167.6 cm; Wt 74.6 kg
[2020-12-23] VITALS (13 sets, daily range): BP systolic 90–130; BP diastolic 40–78
[~2020-12-23 00:50] MED LIST changes: +DOXYCYCLINE MO100 M1 PO; +XARELTO20 M1 PO
[2020-12-23 01:55] LABS: BASO % 0.2 % (0.0-1.0); EOS # 0.2 10*3/uL (0.0-0.4); HEMATOCRIT 37.7 % (37.0-47.0); LYMPH # 0.7 10*3/uL (1.3-4.4); MEAN CELL VOLUME 89.1 fl (81.0-99.0); MEAN CORPUSCULAR HGB 27.2 pg (27.0-31.0); MEAN CORPUSCULAR HGB CONC 30.5 g/dl (33.0-37.0); MEAN PLATELET VOLUME 11.2 fl (9.6-12.3); MONO # 1.2 10*3/uL (0.1-1.0); MONO % 6.7 % (3.0-9.0); NEUT # 15.9 10*3/uL (2.3-7.9); NEUT % 87.2 % (47.0-73.0); PLATELET COUNT AUTOMATED 236 10*3/uL (130-400); RED BLOOD COUNT 4.23 10*6/uL (4.10-5.10); RED CELL DISTRI WIDTH 16.7 % (0-14.5); WHITE BLOOD COUNT 18.3 10*3/uL (4.8-10.8)
[2020-12-23 02:07] LABS: INTERNATIONAL NORM RATIO 1.3 (2.0-3.5)
[2020-12-23 02:12] LABS: ALBUMIN 2.2 gm/dl (3.1-4.5); ALKALINE PHOSPHATASE 51 U/L (45-117); BUN 42 mg/dl (7-24); CHLORIDE 108 mmol/L (98-107); CPK 25 U/L (26-192); CREATININE 1.36 mg/dL (0.55-1.02); LDH 502 U/L (84-246); SGOT/AST 21 IU/L (3-35); SGPT/ALT 16 U/L (12-78); SODIUM 142 mmol/L (136-145); TOTAL PROTEIN 7.2 gm/dL (6.4-8.2)
[2020-12-23 02:13] LABS: TROPONIN I < 0.015 ng/ml (<0.045)
[2020-12-23 09:13] LABS: ARTERIAL BLOOD GAS PH 7.437 (7.35-7.45)
[2020-12-23 12:26] LABS: ABG BASE EXCESS 0.9 mmol/L (-2.0-2.0); ARTERIAL BLOOD GAS PH 7.407 (7.35-7.45)
[2020-12-24] VITALS (8 sets, daily range): BP systolic 91–114; BP diastolic 40–61
[2020-12-24 07:30] LABS: ABG BASE EXCESS 1.2 mmol/L (-2.0-2.0); ARTERIAL BLOOD GAS PH 7.4 (7.35-7.45)
[2020-12-25] VITALS: BP 94/44
[2020-12-25 06:34] LABS: BASO % 0.1 % (0.0-1.0); EOS # 0.1 10*3/uL (0.0-0.4); EOS % 0.3 % (1.0-4.0); HEMATOCRIT 31.9 % (37.0-47.0); LYMPH # 0.8 10*3/uL (1.3-4.4); LYMPH % 4.1 % (27.0-41.0); MEAN CELL VOLUME 90.6 fl (81.0-99.0); MEAN CORPUSCULAR HGB 27.6 pg (27.0-31.0); MEAN CORPUSCULAR HGB CONC 30.4 g/dl (33.0-37.0); MEAN PLATELET VOLUME 11.2 fl (9.6-12.3); MONO # 1.4 10*3/uL (0.1-1.0); MONO % 7.2 % (3.0-9.0); NEUT % 87.5 % (47.0-73.0); PLATELET COUNT AUTOMATED 196 10*3/uL (130-400); RED BLOOD COUNT 3.52 10*6/uL (4.10-5.10); WHITE BLOOD COUNT 19.4 10*3/uL (4.8-10.8)
[2020-12-25 06:54] LABS: POTASSIUM 3.5 mmol/L (3.5-5.1)
[2020-12-25 06:58] LABS: ALBUMIN 1.8 gm/dl (3.1-4.5); CREATININE 1.66 mg/dL (0.55-1.02); TOTAL PROTEIN 6.8 gm/dL (6.4-8.2)
[2020-12-25 08:00] VITALS: BP 108/48
[2020-12-25 09:55] LABS: IRON 18 ug/dL (50-170); TOTAL IRON BINDING CAPACITY 207 ug/dl (250-450)
[2020-12-25 12:00] VITALS: BP 97/46
[2020-12-25 16:00] VITALS: BP 95/49
== END 2020-12-25 20:16 | disposition hospice, inpatient (51) | DRG 871 ==
LOC: ED 00:50 → 4E 05:55 → EDHOLD 05:55 → 4E 12-24 09:01
PROVIDERS: Emergency Medicine; Internal Medicine Critical Care Medicine; Student in an Organized Health Care Education/Training Program; ADMIT Internal Medicine; ATTEND Internal Medicine
PROC: 5A09457 Assistance with Respiratory Ventilation, 24-96 Consecutive Hours, Continuous Positive Airway Pressure (ICD-10-PCS; 2020-12-23)
PROC: 5A09357 Assistance with Respiratory Ventilation, Less than 24 Consecutive Hours, Continuous Positive Airway Pressure (ICD-10-PCS; principal; 2020-12-24)
DX: A41.9 Sepsis, unspecified organism (principal); U07.1 COVID-19; N17.0 Acute kidney failure with tubular necrosis; J96.01 Acute respiratory failure with hypoxia; J12.82 Pneumonia due to coronavirus disease 2019; I50.30 Unspecified diastolic (congestive) heart failure; I48.21 Permanent atrial fibrillation; E03.9 Hypothyroidism, unspecified; E86.0 Dehydration; D64.9 Anemia, unspecified; M19.90 Unspecified osteoarthritis, unspecified site; Z66 Do not resuscitate; G89.4 Chronic pain syndrome; E11.9 Type 2 diabetes mellitus without complications; I11.0 Hypertensive heart disease with heart failure; Z87.19 Personal history of other diseases of the digestive system; Z91.041 Radiographic dye allergy status; Z83.3 Family history of diabetes mellitus; Z86.16 Personal history of COVID-19; Z90.710 Acquired absence of both cervix and uterus; Z98.49 Cataract extraction status, unspecified eye; Z98.891 History of uterine scar from previous surgery; Z68.26 Body mass index [BMI] 26.0-26.9, adult

== ENCOUNTER 2020-12-25 20:40 | Inpatient (IN) | payer OTHER ==
[~2020-12-25] VITALS: Ht 167.6 cm; Wt 75.9 kg
[2020-12-25 20:00] VITALS: BP 104/49
[2020-12-26 08:00] VITALS: BP 87/35
== END 2020-12-26 16:55 | DRG 193 ==
LOC: 4E 20:40
PROVIDERS: ADMIT Internal Medicine; ATTEND Internal Medicine
PROC: 5A09357 Assistance with Respiratory Ventilation, Less than 24 Consecutive Hours, Continuous Positive Airway Pressure (ICD-10-PCS; principal; 2020-12-25)
DX: J18.9 Pneumonia, unspecified organism (principal); J96.01 Acute respiratory failure with hypoxia; Z66 Do not resuscitate; E11.9 Type 2 diabetes mellitus without complications; I48.91 Unspecified atrial fibrillation; G89.29 Other chronic pain; M19.90 Unspecified osteoarthritis, unspecified site; E03.9 Hypothyroidism, unspecified; Z51.5 Encounter for palliative care; Z90.710 Acquired absence of both cervix and uterus; Z98.891 History of uterine scar from previous surgery; Z83.3 Family history of diabetes mellitus; Z91.041 Radiographic dye allergy status; Z88.8 Allergy status to other drugs, medicaments and biological substances